=== PATIENT | female | born 1955 | race Caucasian/White ===

== ENCOUNTER 2021-04-30 20:26 | Inpatient (IN) | payer MEDICARE, OTHER ==
[~2021-04-30 20:26] MED LIST: HEPARIN SODIUM 1,000 UN/ML (10ML VL) IV ONE; IV FLUID CONTINUATION 1,000 ML IV ONE; LIDOCAINE 1% INJ 10MG/ML (20 ML MDV) SQ ONE; MIDAZOLAM 2 MG/2 ML VIAL IV ONE; TICAGRELOR 90 MG TAB PO ONE; VERAPAMIL SYRINGE (5 MG/10 ML) INTRAARTER ONE; fentaNYL (PF) 50 MCG/ML 2 ML AMP IV ONE
[2021-04-30] MEDS ORDERED: NITROGLYCERIN OINT 1 INCH/GM PACKET TOPICAL STA (20:36)
[2021-04-30] MEDS ORDERED: NITROGLYCERIN SL TABS 0.4 MG TAB SUBLINGUAL PRN ×2 (20:36→22:21)
[2021-04-30] MEDS ORDERED: HEPARIN SODIUM 1,000 UN/ML (10ML VL) IV ONE ×2 (20:36→21:26)
--- NOTE | 2021-04-30 20:38 | ED ---
General Adult HPI - General Chief complaint: Chest Pain Stated complaint: chest pain Time Seen by Provider: 04/30/21 20:27 Source: patient, EMS Mode of arrival: EMS Limitations: no limitations - History of Present Illness Initial comments: Dictation was produced using [employer] dictation software. please excuse any grammatical, word or spelling errors. Chief Complaint: 65-year-old female presents emergency part for chest pain History of Present Illness: 65-year-old female she has past medical history of schizoaffective disorder. Patient is being admitted for psychiatric issues in the past. Patient states for the last 4 days she's been having on and off chest pain. She states it's left anterior chest. Radiates to her jaw associated diaphoresis and nausea. Patient states that it's a pressure. Non-sharp. No numbness and paresthesias to the extremities. The ROS documented in this emergency department record has been reviewed and confirmed by me. Those systems with pertinent positive or negative responses have been documented in the HPI. All other systems are other negative and/or noncontributory. PHYSICAL EXAM: General Impression: Alert and oriented x3, acute distress secondary to pain HEENT: Normocephalic atraumatic, extra-ocular movements intact, pupils equal and reactive to light bilaterally, mucous membranes moist. Cardiovascular: Heart regular rate and rhythm Chest: Able to complete full sentences, no retractions, no tachypnea Abdomen: abdomen soft, non-tender, non-distended, no organomegaly Musculoskeletal: Pulses present and equal in all extremities, no peripheral edema Motor: no focal deficits noted Neurological: CN II-XII grossly intact, no focal motor or sensory deficits noted Skin: Intact with no visualized rashes Psych: Normal affect and mood ED course: 65-year-old feel presents emergency department for chest pain concerning for acute coronary syndrome. vital signs upon arrival are within acceptable limits. EKG shows ST segment elevation MD in the 1 through the 5. There are reciprocal changes in the inferior leads. Code STEMI was paged. Spoke with Dr. Mascorro who is willing to accept patient and take emergently to the cath lab nurse. Patient given heparin per she received prehospital aspirin. EKG interpretation: Ventricular rate 75, sinus rhythm, AK interval 170, QS 80, QTC 4:15. No AK prolongation, no QTC prolongation. ST elevation in V1 through V5 with reversible changes in inferior leads. STEMI - Related Data Home Medications Medication Instructions Recorded Confirmed Acetaminophen/Caffeine [Excedrin 1 tab PO PC-SUPPER 04/30/21 04/30/21 Tension Headache] Cholecalciferol [Vitamin D3 (25 50 mcg PO PC-SUPPER 04/30/21 04/30/21 Mcg = 1000 Iu)] [place] Carbonate 300 mg PO PC-SUPPER 04/30/21 04/30/21 Lurasidone [Latuda] 40 mg PO PC-SUPPER 04/30/21 04/30/21 Meloxicam 15 mg PO PC-SUPPER PRN 04/30/21 04/30/21 Allergies Allergy/AdvReac Type Severity Reaction Status Date / Time citalopram hydrobromide Allergy Unknown Verified 04/30/21 20:55 [From Celexa] olanzapine [From Zyprexa] Allergy rash & Verified 04/30/21 20:55 itching Review of Systems ROS Statement: Those systems with pertinent positive or pertinent negative responses have been documented in the HPI. ROS Other: All systems not noted in ROS Statement are negative. Past Medical History Past Medical History: Hyperlipidemia, Osteoarthritis (OA) Additional Past Medical History / Comment(s): hips -degeneratve joint disease History of Any Multi-Drug Resistant Organisms: None Reported Past Surgical History: No Surgical Hx Reported Additional Past Surgical History / Comment(s): Cosmetic surgery on her nose 1978. Past Anesthesia/Blood Transfusion Reactions: No Reported Reaction Additional Past Anesthesia/Blood Transfusion Reaction / Comment(s): pt very sensitive to medications Past Psychological History: Anxiety, Bipolar Smoking Status: Current every day smoker Past Alcohol Use History: Occasional Past Drug Use History: None Reported - Past Family History Father Family Medical History: Myocardial Infarction ([place]) Additional Family Medical History / Comment(s): [place] x 2- Mother Family Medical History: Diabetes Mellitus Additional Family Medical History / Comment(s): Mother is alive at age 79 with history of Diabetes., polio,depression General Exam Limitations: no limitations Course Vital Signs 04/30/21 04/30/21 04/30/21 20:27 20:50 20:58 Temperature 98.8 F Pulse Rate 84 63 Respiratory 20 18 Rate Blood Pressure 171/92 148/97 119/78 O2 Sat by Pulse 99 96 93 L Oximetry Medical Decision Making - Lab Data Result diagrams: 04/30/21 20:41 04/30/21 20:41 Lab Results 04/30/21 04/30/21 Range/Units 20:41 20:41 WBC 13.1 H (3.8-10.6) k/uL RBC 5.11 (3.80-5.40) m/uL Hgb 16.2 H (11.4-16.0) gm/dL Hct 46.6 H (34.0-46.0) % MCV 91.2 (80.0-100.0) fL MCH 31.8 (25.0-35.0) pg MCHC 34.8 (31.0-37.0) g/dL RDW 12.8 (11.5-15.5) % Plt Count 219 (150-450) k/uL MPV 8.5 Neutrophils % 66 % Lymphocytes % 24 % Monocytes % 5 % Eosinophils % 2 % Basophils % 1 % Neutrophils # 8.7 H (1.3-7.7) k/uL Lymphocytes # 3.1 (1.0-4.8) k/uL Monocytes # 0.7 (0-1.0) k/uL Eosinophils # 0.2 (0-0.7) k/uL Basophils # 0.1 (0-0.2) k/uL Sodium 140 (137-145) mmol/L Potassium 4.1 (3.5-5.1) mmol/L Chloride 103 (98-107) mmol/L Carbon Dioxide 25 (22-30) mmol/L Anion Gap 12 mmol/L BUN 15 (7-17) mg/dL Creatinine 0.81 (0.52-1.04) mg/dL Est GFR (CKD-EPI)AfAm >90 (>60 ml/min/1.73 sqM) Est GFR (CKD-EPI)NonAf 78 (>60 ml/min/1.73 sqM) Glucose 119 H (74-99) mg/dL Calcium 9.9 (8.4-10.2) mg/dL Total Bilirubin 0.7 (0.2-1.3) mg/dL AST 30 (14-36) U/L ALT 25 (4-34) U/L Alkaline Phosphatase 107 (38-126) U/L Total Protein 9.1 H (6.3-8.2) g/dL Albumin 5.4 H (3.5-5.0) g/dL Disposition Clinical Impression: STEMI (ST elevation myocardial infarction) Disposition: ADMITTED IP TO THIS HOSP Condition: Critical Referrals: Oziel Jacobsen DO [Primary Care Provider] - 1-2 days
[2021-04-30] MEDS ORDERED: HEPARIN SOD,PORK IN 0.45% NACL 25,000 UNIT in 0.45% NACL 1 250ML.BAG IV SCH (20:45)
[2021-04-30 20:50] LABS: Basophils # (A) 0.1 k/uL (0-0.2); Basophils % (A) 1 %; Eosinophils # (A) 0.2 k/uL (0-0.7); Eosinophils % (A) 2 %; HCT 46.6 % (34.0-46.0); HGB 16.2 gm/dL (11.4-16.0); Lymphocytes # (A) 3.1 k/uL (1.0-4.8); Lymphocytes % (A) 24 %; MCH 31.8 pg (25.0-35.0); MCHC 34.8 g/dL (31.0-37.0); MCV 91.2 fL (80.0-100.0); Mean Platelet Volume 8.5; Monocytes # (A) 0.7 k/uL (0-1.0); Monocytes % (A) 5 %; Neutrophils # (A) 8.7 k/uL (1.3-7.7); Neutrophils % (A) 66 %; Platelet Count 219 k/uL (150-450); RBC 5.11 m/uL (3.80-5.40); RDW 12.8 % (11.5-15.5); WBC 13.1 k/uL (3.8-10.6)
[2021-04-30 20:59] LABS: ALT 25 U/L (4-34); AST 30 U/L (14-36); African American GFR (CKD) >90 (>60 ml/min/1.73 sqM); Albumin 5.4 g/dL (3.5-5.0); Alkaline Phosphatase 107 U/L (38-126); Anion Gap 12 mmol/L; Blood Urea Nitrogen 15 mg/dL (7-17); Calcium 9.9 mg/dL (8.4-10.2); Carbon Dioxide 25 mmol/L (22-30); Chloride 103 mmol/L (98-107); Glucose 119 mg/dL (74-99); Non-African American GFR(CKD) 78 (>60 ml/min/1.73 sqM); Potassium 4.1 mmol/L (3.5-5.1); Sodium 140 mmol/L (137-145); Total Bilirubin 0.7 mg/dL (0.2-1.3); Total Protein 9.1 g/dL (6.3-8.2)
[2021-04-30] MEDS ORDERED: NALOXONE 0.4 MG/ML 1 ML VIAL IV PRN (21:06)
--- NOTE | 2021-04-30 21:08 | XR ---
EXAMINATION TYPE: XR chest 1V portable DATE OF EXAM: 04/30/2021 COMPARISON: NONE HISTORY: Chest pain TECHNIQUE: Single view FINDINGS: Heart and mediastinum are normal. Lungs are clear. Diaphragm is normal. Bony thorax appears normal. IMPRESSION: Normal chest.
[2021-04-30 21:10] LABS: INR 0.9 (<1.2); Prothrombin Time 9.9 sec (9.0-12.0)
[2021-04-30] MEDS ORDERED: fentaNYL (PF) 50 MCG/ML 2 ML AMP ONE (21:11)
[2021-04-30] MEDS ORDERED: LIDOCAINE 1% INJ 10MG/ML (20 ML MDV) ONE (21:15)
[2021-04-30] MEDS ORDERED: MIDAZOLAM 2 MG/2 ML VIAL IV ONE (21:15)
[2021-04-30] MEDS ORDERED: fentaNYL (PF) 50 MCG/ML 2 ML AMP IV ONE (21:15)
[2021-04-30] MEDS ORDERED: VERAPAMIL 2.5 MG/ML 2 ML AMP ONE (21:15)
[2021-04-30] MEDS ORDERED: LIDOCAINE 1% INJ 10MG/ML (20 ML MDV) SQ ONE (21:16)
[2021-04-30] MEDS ORDERED: VERAPAMIL SYRINGE (5 MG/10 ML) INTRAARTER ONE (21:18)
[2021-04-30] MEDS ORDERED: HEPARIN SODIUM 1,000 UN/ML (10ML VL) ONE (21:24)
[2021-04-30] MEDS ORDERED: TICAGRELOR 90 MG TAB ONE (21:28)
[2021-04-30] MEDS ORDERED: NITROGLYCERIN 1000MCG/10ML SYRINGE INTRACORON ONE (21:28)
[2021-04-30] MEDS ORDERED: TICAGRELOR 90 MG TAB PO ONE (21:30)
[2021-04-30] MEDS ORDERED: IOPAMIDOL-370 125ML BTL INJ ONE (21:41)
[2021-04-30] MEDS ORDERED: IOPAMIDOL-370 100ML BTL INJ ONE ×2 (21:42)
[2021-04-30 22:13] LABS: Glucose,Whole Blood 138 mg/dL (75-99)
--- NOTE | 2021-04-30 22:15 | P.CRDCN ---
History of Present Illness History of present illness: HISTORY OF PRESENTING ILLNESS Patient is pleasant 65-year-old female with history of schizoaffective disorder, previous hyperlipidemia however has stopped taking medications, tobacco abuse, a rthritis who presents secondary to 4 days of off-and-on chest pain. She states that the chest pain came and went however was not that persistent and therefore did not seek medical care. She states that 2 days ago she felt like she was given dye however pressure usually stop and therefore did not come until tonight when the chest pain would not let up. She denies any similar symptoms. She does smoke. She does have a family history of father with an [place]. EKG shows sinus rhythm with ST elevation V2 through V6 with reciprocal changes. REVIEW OF SYSTEMS At the time of my exam: CONSTITUTIONAL: Denies fever or chills. CARDIOVASCULAR: +chest pain, + mild shortness of breath, no orthopnea, PND or palpitations. RESPIRATORY: Denies cough. GASTROINTESTINAL: Denies abdominal pain, diarrhea, constipation, +nausea, no vomiting. MUSCULOSKELETAL: Denies myalgias. NEUROLOGIC: Denies numbness, tingling or weakness. ENDOCRINE: Denies fatigue, weight change, polydipsia or polyurina. GENITOURINARY: Denies burning, hematuria or urgency with micturation. HEMATOLOGIC: Denies history of anemia or bleeding. PHYSICAL EXAMINATION Vital signs reviewed. CONSTITUTIONAL: Mild distress, tangential speech HEENT: Head is normocephalic. Pupils are equal, round. Sclerae anicteric. Mucous membranes of the mouth are moist. No JVD. No carotid bruit. CHEST EXAMINATION: Lungs are clear to auscultation. No chest wall tenderness is noted on palpation or with deep breathing. HEART EXAMINATION: Regular rate and rhythm. S1, S2 heard. No murmurs, gallops or rub. ABDOMEN: Soft, nontender. Positive bowel sounds. EXTREMITIES: 2+ peripheral pulses, no lower extremity edema and no calf tenderness. NEUROLOGIC EXAMINATION: Patient is awake, alert and oriented x3. ASSESSMENT 1. Anterolateral STEMI 2. Previous history of hyperlipidemia 3. Tobacco abuse 4. Bipolar disorder/schizoaffective disorder 5. Hypertension PLAN Discussed with patient recommendations for emergency heart catheterization and she is agreeable. Aspirin, heparin and heart catheterization. Check 2-D echo. Smoking cessation. Further recommendations to follow. Past Medical History Past Medical History: Hyperlipidemia, Osteoarthritis (OA) Additional Past Medical History / Comment(s): hips -degeneratve joint disease History of Any Multi-Drug Resistant Organisms: None Reported Past Surgical History: No Surgical Hx Reported Additional Past Surgical History / Comment(s): Cosmetic surgery on her nose 1978. Past Anesthesia/Blood Transfusion Reactions: No Reported Reaction Additional Past Anesthesia/Blood Transfusion Reaction / Comment(s): pt very sensitive to medications Past Psychological History: Anxiety, Bipolar Smoking Status: Current every day smoker Past Alcohol Use History: Occasional Past Drug Use History: None Reported - Past Family History Father Family Medical History: Myocardial Infarction ([place]) Additional Family Medical History / Comment(s): [place] x 2- Mother Family Medical History: Diabetes Mellitus Additional Family Medical History / Comment(s): Mother is alive at age 79 with history of Diabetes., polio,depression Medications and Allergies Home Medications Medication Instructions Recorded Confirmed Type Acetaminophen/Caffeine [Excedrin 1 tab PO PC-SUPPER 04/30/21 04/30/21 History Tension Headache] Cholecalciferol [Vitamin D3 (25 50 mcg PO PC-SUPPER 04/30/21 04/30/21 History Mcg = 1000 Iu)] [place] Carbonate 300 mg PO PC-SUPPER 04/30/21 04/30/21 History Lurasidone [Latuda] 40 mg PO PC-SUPPER 04/30/21 04/30/21 History Meloxicam 15 mg PO PC-SUPPER PRN 04/30/21 04/30/21 History Allergies Allergy/AdvReac Type Severity Reaction Status Date / Time citalopram hydrobromide Allergy Unknown Verified 04/30/21 20:55 [From Celexa] olanzapine [From Zyprexa] Allergy rash & Verified 04/30/21 20:55 itching Physical Exam Vitals: Vital Signs Temp Pulse Resp BP Pulse Ox 04/30/21 20:58 63 119/78 93 L 04/30/21 20:50 18 148/97 96 04/30/21 20:27 98.8 F 84 20 171/92 99 Intake and Output 04/30/21 04/30/21 04/30/21 06:59 14:59 22:59 Intake Total 400 Balance 400 Intake: IV 400 Other: Weight 83.461 kg Results 04/30/21 20:41 04/30/21 20:41 Cardiac Enzymes 04/30/21 04/30/21 Range/Units 20:41 20:41 AST 30 (14-36) U/L Troponin I 0.046 H* (0.000-0.034) ng/mL Coagulation 04/30/21 Range/Units 20:41 PT 9.9 (9.0-12.0) sec APTT 22.0 (22.0-30.0) sec CBC 04/30/21 Range/Units 20:41 WBC 13.1 H (3.8-10.6) k/uL RBC 5.11 (3.80-5.40) m/uL Hgb 16.2 H (11.4-16.0) gm/dL Hct 46.6 H (34.0-46.0) % Plt Count 219 (150-450) k/uL Comprehensive Metabolic Panel 04/30/21 Range/Units 20:41 Sodium 140 (137-145) mmol/L Potassium 4.1 (3.5-5.1) mmol/L Chloride 103 (98-107) mmol/L Carbon Dioxide 25 (22-30) mmol/L BUN 15 (7-17) mg/dL Creatinine 0.81 (0.52-1.04) mg/dL Glucose 119 H (74-99) mg/dL Calcium 9.9 (8.4-10.2) mg/dL AST 30 (14-36) U/L ALT 25 (4-34) U/L Alkaline Phosphatase 107 (38-126) U/L Total Protein 9.1 H (6.3-8.2) g/dL Albumin 5.4 H (3.5-5.0) g/dL Current Medications Generic Name Dose Route Start Last Admin Trade Name Freq PRN Reason Stop Dose Admin Heparin Sodium/Sodium Chloride 250 mls @ 10 mls/hr 04/30/21 20:45 04/30/21 20:47 25,000 unit/ Sodium Chloride IV 11.982 units/kg/hr .Q24H PHANI 10 mls/hr Administration Protocol 11.982 UNITS/KG/HR Naloxone HCl 0.2 mg 04/30/21 21:06 Naloxone 0.4 Mg/Ml 1 Ml Vial IV Q2M PRN Opioid Reversal Nitroglycerin 0.4 mg 04/30/21 20:36 04/30/21 20:48 Nitroglycerin Sl Tabs 0.4 Mg Tab SUBLINGUAL 0.4 mg Q5M PRN Administration Chest Pain Intake and Output 04/30/21 04/30/21 04/30/21 06:59 14:59 22:59 Intake Total 400 Balance 400 Intake: IV 400 Other: Weight 83.461 kg Patient Weight 05/01/21 06:59 Weight 83.461 kg 04/30/21 20:41 04/30/21 20:41
[2021-04-30] MEDS ORDERED: RX INFO: IV CONTRAST WAS GIVEN 1 EACH MISC MISCELLANE PRN (22:21)
--- NOTE | 2021-04-30 22:21 | P.PRCINT ---
Percutaneous Coronary Int. - Percutaneous Coronary Intervention Percutaneous Coronary Intervention: PROCEDURES PERFORMED: Left heart catheterization, bilateral coronary angiography, PCI proximal LAD with 3.5 x 18 mm Xience JASIEL INDICATION: Anterolateral STEMI HISTORY: Patient is a pleasant 65-year-old female with a history of bipolar disorder, hypertension, hyperlipidemia, tobacco abuse who presented with 4 days of off-and-on chest pain with more persistent chest pain today and was found to have anterolateral STEMI. CONSENT:I have discussed the risks, benefits and alternative therapies for the above-mentioned procedure and for both sedation/analgesia as well as necessary blood product administration, if indicated, as they pertain to this patient. The patient has indicated understanding and acceptance of the risks and procedures discussed. PROCEDURE: After the risks, benefits and alternatives of the above mentioned procedure explained in detail with the patient, informed consent was obtained. Patient was taken to the catheterization lab and prepped and draped in usual fashion. 1% lidocaine was used to anesthetize the right radial artery. A 6- [place] sheath was placed in the right radial artery using modified Seldinger technique. Left coronary angiography was performed with a 6-[place] CLS 3.5 catheter in various views. Heparin was given for ACT greater than 250. A 0.014 BMW wire was advanced into the distal LAD. Predilation was performed with a 2.5 x 12 mm balloon. Next a 3.5 x 18 mm Xience JASIEL was deployed in the ostial LAD. The wire was pulled and final angiograms were performed.. Intervention there was 95% stenosis and MAYA 2 flow and post intervention there was 0% stenosis and MAYA 3 flow with mild plaque shift and 40% ostial circumflex stenosis. Right coronary angiography was performed with a 5-[place] JR5 catheter in various views. A 5-[place] FR5 catheter was inserted into the left ventricle and pressure measurements were obtained. The right radial sheath was removed and a TR band was placed with hemostasis achieved. The patient tolerated the procedure well. Patient was transported back to the post catheterization holding area in stable condition. Conscious Sedation: Patient was monitored under the direct supervision of vision of myself for conscious sedation using Versed and fentanyl for a total duration of 30 minutes HEMODYNAMICS: Aorta: 162/88 LV: 157/5, LVEDP 16 SELECTIVE CORONARY ARTERIOGRAPHY: LEFT MAIN: The left main is a large caliber vessel which bifurcates into the LAD and circumflex. There is no significant stenosis. LEFT ANTERIOR DESCENDING CORONARY ARTERY: LAD is a large caliber vessel which wraps around to the apex. There is an ostial/proximal 95% LAD stenosis followed by a somewhat aneurysmal mid LAD and then further followed by a 30-40% mid LAD stenosis. Otherwise the LAD appears normal. LEFT CIRCUMFLEX CORONARY ARTERY: Left circumflex is a moderate caliber vessel without significant stenosis. RIGHT CORONARY ARTERY: The right coronary artery is a large caliber vessel which gives off a PDA and PLV branch and is the dominant vessel. There is a proximal RCA 30-40% stenosis and otherwise appears normal. FINAL IMPRESSION: 1. CAD as described above including 95% proximal LAD stenosis, 30-40% mid LAD stenosis and proximal RCA 30-40% stenosis. 2. S/p successful PCI proximal LAD with 3.5 x 18 mm Xience JASIEL 3. Borderline elevated left sided filling pressures PLAN: 1. Aggressive risk factor modification per most recent ACC/AHA guidelines. 2. Continue dual antiplatelets for 12 months.
[2021-04-30] MEDS ORDERED: ZOLPIDEM 5 MG TAB PO PRN (22:30)
[2021-04-30] MEDS ORDERED: ATROPINE SULFATE 0.1 MG/ML 10ML SYRINGE IV PRN (23:00)
[2021-04-30] MEDS: METOPROLOL TARTRATE 25 MG TAB PO SCH (23:51)
[2021-04-30] MEDS: ATORVASTATIN 80 MG TAB PO SCH (23:52)
[2021-04-30] MEDS: SODIUM CHLORIDE 0.9% 1,000 ML in EMPTY BAG 1 BAG IV SCH (23:55)
[2021-05-01] MEDS ORDERED: MAG HYDROX/AL HYDROX/SIMETH 30 ML CUP PO PRN
[2021-05-01 06:07] LABS: African American GFR (CKD) >90 (>60 ml/min/1.73 sqM); Anion Gap 6 mmol/L; Blood Urea Nitrogen 13 mg/dL (7-17); Calcium 8.7 mg/dL (8.4-10.2); Carbon Dioxide 24 mmol/L (22-30); Chloride 109 mmol/L (98-107); Glucose 122 mg/dL (74-99); Non-African American GFR(CKD) >90 (>60 ml/min/1.73 sqM); Potassium 3.5 mmol/L (3.5-5.1); Sodium 139 mmol/L (137-145)
[2021-05-01] MEDS ORDERED: Potassium Replacement Protocol 1 EACH MISC MISCELLANE PRN (07:19)
[2021-05-01] MEDS: METOPROLOL TARTRATE 25 MG TAB PO SCH ×2 (08:39→20:14)
[2021-05-01] MEDS: TICAGRELOR 90 MG TAB PO SCH ×2 (08:40→20:14)
[2021-05-01] MEDS: POTASSIUM CHLORIDE ER 20 MEQ TAB.ER PO SCH ×2 (08:40→10:57)
[2021-05-01] MEDS: ASPIRIN 81 MG PO SCH (08:40)
--- NOTE | 2021-05-01 10:00 | ECHOF ---
Referral Reason:re: STEMI MEASUREMENTS -------- HEIGHT: 170.2 cm WEIGHT: 87.1 kg BP: IVSd: 1.0 cm (0.6 - 1.1) LVIDd: 5.1 cm (3.9 - 5.3) LVPWd: 1.3 cm (0.6 - 1.1) IVSs: 1.1 cm LVIDs: 3.1 cm LVPWs: 1.4 cm LAESV Index (A-L): 22.37 ml/m Ao Diam: 2.9 cm (2.0 - 3.7) AV Cusp: 1.6 cm (1.5 - 2.6) LA Diam: 3.9 cm (2.7 - 3.8) MV EXCURSION: 19.436 mm (> 18.000) MV EF SLOPE: 74 mm/s (70 - 150) EPSS: 0.7 cm MV E Reed: 0.56 m/s MV DecT: 261 ms MV A Reed: 0.94 m/s MV E/A Ratio: 0.60 RAP: 5.00 mmHg RVSP: 14.63 mmHg FINDINGS -------- Sinus rhythm. This was a technically adequate study. The left ventricular size is normal. There is borderline concentric left ventricular hypertrophy. Overall left ventricular systolic function is low-normal with, an EF between 50 - 55 %. Antersepta l Hypokinesis The right ventricle is normal in size. Normal LA size by volume 22+/-6 ml/m2. The right atrial size is normal. There is mild aortic valve sclerosis. There is no evidence of aortic regurgitation. Mild mitral regurgitation is present. Mild tricuspid regurgitation present. Right ventricular systolic pressure is normal at < 35 mmHg. There is no pulmonic regurgitation present. There is no pericardial effusion. CONCLUSIONS -------- 1. The left ventricular size is normal. 2. There is borderline concentric left ventricular hypertrophy. 3. Overall left ventricular systolic function is low-normal with, an EF between 50 - 55 %. 4. Anterseptal Hypokinesis 5. The right ventricle is normal in size. 6. Normal LA size by volume 22+/-6 ml/m2. 7. The right atrial size is normal. 8. There is mild aortic valve sclerosis. 9. Mild mitral regurgitation is present. 10. Mild tricuspid regurgitation present. 11. There is no pulmonic regurgitation present. 12. There is no pericardial effusion. RADAR TESTER: Marylin Gleason RDCS
[2021-05-01] MEDS ORDERED: NICOTINE 21MG/24HR PATCH TRANSDERM STA (10:52)
--- NOTE | 2021-05-01 11:48 | P.PN ---
Subjective Patient presented with acute myocardial infarction yesterday She underwent stenting to the LAD by Dr. Mascorro She is very stable today no chest discomfort dizziness or lightheadedness For the past 4 days prior to this event she was experiencing chest discomfort and heartburn-like symptoms Pulse rate in the 60s blood pressure 137/100 mmHg and 130 no 98 mmHg Breath sounds are clear no rhonchi no crackles Heart sounds S1 and S2 are normal no murmurs or gallops or rub Extremities warm no edema Impression Acute myocardial infarction, anterior Normal LV function Normal electrolytes and renal function Patient takes lithium at home Suggest Smoking cessation Atorvastatin, dual antiplatelet therapy and beta blockers Watch blood pressure and maximize antihypertensive therapy Objective - Vital Signs Vital signs: Vital Signs Temp 97.6 F 05/01/21 08:00 Pulse 68 05/01/21 11:00 Resp 20 05/01/21 06:30 BP 137/100 05/01/21 11:00 Pulse Ox 95 05/01/21 11:00 Intake & Output 04/30/21 05/01/21 05/01/21 18:59 06:59 18:59 Intake Total 1475 300 Balance 1475 300 Weight 87.1 kg 87.1 kg Intake: IV 1075 300 Sodium Chloride 0.9% 1, 675 300 000 ml In Empty Bag 1 bag @ 1 ML/KG/HR 83.461 mls/ hr IV .[id number] [facility] Rx#: [id number] Oral 400 Other: # Voids 1 1 - Labs CBC & Chem 7: 04/30/21 20:41 05/01/21 05:22 Labs: Abnormal Lab Results - Last 24 Hours (Table) 04/30/21 04/30/21 04/30/21 Range/Units 20:41 20:41 20:41 WBC 13.1 H (3.8-10.6) k/uL Hgb 16.2 H (11.4-16.0) gm/dL Hct 46.6 H (34.0-46.0) % Neutrophils # 8.7 H (1.3-7.7) k/uL Chloride (98-107) mmol/L Glucose 119 H (74-99) mg/dL POC Glucose (mg/dL) (75-99) mg/dL Troponin I 0.046 H* (0.000-0.034) ng/mL Total Protein 9.1 H (6.3-8.2) g/dL Albumin 5.4 H (3.5-5.0) g/dL 04/30/21 05/01/21 Range/Units 22:11 05:22 WBC (3.8-10.6) k/uL Hgb (11.4-16.0) gm/dL Hct (34.0-46.0) % Neutrophils # (1.3-7.7) k/uL Chloride 109 H (98-107) mmol/L Glucose 122 H (74-99) mg/dL POC Glucose (mg/dL) 138 H (75-99) mg/dL Troponin I (0.000-0.034) ng/mL Total Protein (6.3-8.2) g/dL Albumin (3.5-5.0) g/dL
--- NOTE | 2021-05-01 13:38 | P.CN ---
Psychiatric Consult - . Consult date: 05/01/21 Consult:: 05/01/21 13:00 IDENTIFYING DATA: This patient is a 65-year-old female, with a history of bipolar disorder who currently lives in apartment has 1-1 grandchild. She collects SSD. REASON FOR REFERRAL: Psychiatry was consulted for patient concerns about lithium. HISTORY OF PRESENT ILLNESS: The patient presented to the hospital on 04/30 for concerns about chest pain which has been on and off. Apparently patient has been having left-sided chest pain for the past few days. Patient was found to have a STEMI on EKG and was taken directly to the Addiction Specialist. Dr. Mascorro performed stenting on the LAD. Patient's kidney and liver function tests appear to be within normal limits. Patient was seen sitting beside her bed in the chair and was agreeable insurance underwriter sales. She appeared to have a bright affect and was rambling at times and however was appropriate and directable during conversation. She spoke about her mental health condition bipolar disorder and that she follows up with Dr. Bowman at [facility]. She states that she has an appointment with him tomorrow. She claims that she has been taking the lithium however he feels that "it slows me down sometimes" and was asking questions about whether she needs to be on it or not. She is also on latuda which she believes has been more helpful for her. She spoke about several other medications that she's been on in the past which have not been helpful for her. She claims that her mood is "okay" and is denying any depression or any other manic symptoms at this time. She is denying any racing thoughts. She states that her sleep is "on and off". She states that she is doing better in terms of her chest pain. She states her appetite is fair.. At this time patient denies any suicidal or homical ideations, intent or plan. Patient denies any auditory, visual hallucinations and denies any paranoia or delusions. Patients admits to using cigarettes daily and occasional alcohol. Denies any other recreational drug use. PAST PSYCHIATRIC HISTORY: Patient has a a history of bipolar disorder. She claims that she is currently on lithium and latuda at dinnertime. She was last psychiatrically hospitalized in October 2014 on the mental health unit. She currently follows up with [facility] and sees Dr. Bowman. Her appointment with Dr. Bowman tomorrow over the phone. Patient denies any history of suicide attempts in the past. Past Medical History: Hyperlipidemia, Osteoarthritis (OA) Additional Past Medical History / Comment(s): hips -degeneratve joint disease ALLERGIES: as per EMR. CHEMICAL DEPENDENCY HISTORY: as per HPI. FAMILY PSYCHIATRIC/SUBSTANCE USE HISTORY: States that her uncle has bipolar disorder SOCIAL HISTORY: Patient was born and raised in [place] and also in [place]. She claims that she completed high school and did some college. She states that she works several jobs in the past however is now on SSD. She has 1 child and also has 1 grandchild. She currently lives in an apartment. MENTAL STATUS EXAM: General Appearance: Patient appears to be stated age is alert, pleasant, and tends to be cooperative. Bright affect. Patient appears to have fair hygiene and grooming wearing hospital gown with fair eye contact. Behavior: Patient is calmly lying in bed without any agitated behavior. Appropriate. Speech: Patient's speech is fluent and nonpressured. Rambles however is directable. Mood/Affect: Patient reports their mood is "ok", affect is congruent Suicidality/Homicidality: Patient denies having any suicidal or homicidal ideation intent or plan. Perceptions: Patient denies any visual hallucinations and denies any auditory hallucinations Though content/process: There is no evidence of any delusional thought content. Tangential at times. Rambles at times. Not endorsing any delusions or paranoia. Memory and concentration: AOX3, grossly intact for the purposes of this session. Can spell "WORLD" backwards Judgment and insight: fair IMPRESSIONS: Bipolar disorder Nicotine dependence PLAN: -At this time patient DOES NOT meet criteria for inpatient psychiatric admission. -Would recommend the following medication changes/additions: Continue with latuda and lithium as percribed. Her lithium is at a low dose at this time and could be increased but would defer this decision to her outpt psychiatrist at [facility]. Will check a lithium level tomorrow morning. Added melatonin 6 mg qhs for sleep. -Patient has a appointment with Dr. Bowman tomorrow over the phone who is her outpatient psychiatrist. -Communicated plan to patient's nurse -Psychiatry will sign off at this time -Please contact with any questions.
--- NOTE | 2021-05-01 13:58 | P.HPIM ---
History of Present Illness H&P Date: 05/01/21 Chief Complaint: Chest pain This is a pleasant 65-year-old patient who follows with Dr. Jacobsen. Chronic stable medical conditions include hyperlipidemia, osteoarthritis especially the hips, bipolar disorder, a smoke about 8 cigarettes a day. She does follow with Dr. Hunter out of [facility] for her bipolar disorder. And she has concerns about her lithium. For 3-4 days patient been having pain across the chest. More so with activity and better with rest. Also shortness of breath. Tired. No fever no chills. Some perspiration. Patient is found to have ST elevation acute [place] in the ER with positive troponin and taken to the cardiac director of cath lab. Successful stenting of the proximal LAD was done. Patient admitted to the ICU. This morning sitting up in a chair. No chest pain. Breathing is stable. Did eat her breakfast. Review of systems: GEN.: Tired EYES: None HEENT: None NECK: None RESPIRATORY: Does get short of breath and wheezing CARDIOVASCULAR: As above GASTROINTESTINAL: None GENITOURINARY: None MUSCULOSKELETAL: Joint pains LYMPHATICS: None HEMATOLOGICAL: None PSYCHIATRY: Anxious NEUROLOGICAL: None Past medical history to include: Hyperlipidemia, osteoarthritis, bipolar disorder, nicotine dependence Social history: Long-standing smoker currently being over 8 cigarettes a day. Social drinker Family history: CAD Physical examination: VITAL SIGNS: 97.6, 73, 136/62, 95% room air GENERAL: BMI 30.1, sitting up in a chair awake, comfortable. EYES: Pupils equal. Conjunctiva normal. HEENT: External appearance of nose and ears normal, oral cavity grossly normal. NECK: JVD not raised; masses not palpable. HEART: First and second heart sounds are normal; no edema. LUNGS: Respiratory rate normal; diminished breath sounds. ABDOMEN: Soft, nontender, liver spleen not palpable, no masses palpable. PSYCH: Alert and oriented x3; mood and affect anxiousl. MUSCULOSKELETAL:No Clubbing/cyanosis;muscles-grossly intact NEUROLOGICAL: Cranial nerves grossly intact; no facial asymmetry, power and sensation grossly intact. LYMPHATICS: No lymph nodes palpable in the axilla and neck INVESTIGATIONS, reviewed in the clinical context: 2-D echocardiogram: EF 50-55%, anteroseptal hypokinesis mild regurg. May 01: Potassium 3.5 crit 0.68 Admission labs: White count 13.1 hemoglobin 16.2 potassium 4.1 Troponin I 0.046 EKG tracing personally reviewed by me-ST elevation in anterior leads and depression in inferior leads Chest x-ray film personally reviewed by me-some hyperinflation Assessment and plan: -Acute ST elevation myocardial infarction of the anterior wall Emergency stent to LAD, by Dr. Mascorro -COPD in a current smoker Albuterol when necessary -Chronic nicotine dependence, cigarette smoker Nicotine patch -Obesity BMI 30.1 C dietitian -Bipolar disorder somewhat anxious concerned about her lithium. Does follow with Dr. Hunter from [facility]. Consult psychiatry Aspirin, Lipitor, IV heparin, Lopressor, Brilinta. Home medications resumed. Follow with cardiology. Telemetry. Consult psychiatry. Care was discussed with the patient. Questions answered. Given the complexity and severity of patient's condition expect the patient to be in the hospital at least for 2 overnights Past Medical History Past Medical History: Hyperlipidemia, Osteoarthritis (OA) Additional Past Medical History / Comment(s): hips -degeneratve joint disease Last Myocardial Infarction Date:: 04/30/21 History of Any Multi-Drug Resistant Organisms: None Reported Past Surgical History: No Surgical Hx Reported Additional Past Surgical History / Comment(s): Cosmetic surgery on her nose 1978 . Past Anesthesia/Blood Transfusion Reactions: No Reported Reaction Additional Past Anesthesia/Blood Transfusion Reaction / Comment(s): pt very sensitive to medications Date of Last Stent Placement:: 04/30/21 Past Psychological History: Anxiety, Bipolar Smoking Status: Current every day smoker Past Alcohol Use History: Occasional Past Drug Use History: None Reported - Past Family History Father Family Medical History: Myocardial Infarction ([place]) Additional Family Medical History / Comment(s): [place] x 2- Mother Family Medical History: Diabetes Mellitus Additional Family Medical History / Comment(s): Mother is alive at age 79 with history of Diabetes., polio,depression Medications and Allergies Home Medications Medication Instructions Recorded Confirmed Type Acetaminophen/Caffeine [Excedrin 1 tab PO PC-SUPPER 04/30/21 04/30/21 History Tension Headache] Cholecalciferol [Vitamin D3 (25 50 mcg PO PC-SUPPER 04/30/21 04/30/21 History Mcg = 1000 [address])] [place] Carbonate 300 mg PO PC-SUPPER 04/30/21 04/30/21 History Lurasidone [Latuda] 40 mg PO PC-SUPPER 04/30/21 04/30/21 History Meloxicam 15 mg PO PC-SUPPER PRN 04/30/21 04/30/21 History Allergies Allergy/AdvReac Type Severity Reaction Status Date / Time citalopram hydrobromide Allergy Unknown Verified 04/30/21 20:55 [From Celexa] olanzapine [From Zyprexa] Allergy rash & Verified 04/30/21 20:55 itching Physical Exam Vitals: Vital Signs Temp Pulse Resp BP Pulse Ox 05/01/21 10:00 74 158/88 95 05/01/21 09:30 75 95 05/01/21 09:00 63 113/98 94 L 05/01/21 08:30 68 94 L 05/01/21 08:06 95 05/01/21 08:00 97.6 F 73 136/62 95 05/01/21 07:30 75 96 05/01/21 07:00 72 125/67 95 05/01/21 06:30 74 20 125/67 95 05/01/21 06:00 67 20 120/62 94 L 05/01/21 05:30 73 20 120/62 94 L 05/01/21 05:00 71 12 135/82 94 L 05/01/21 04:30 70 20 135/82 94 L 05/01/21 04:00 98 F 70 15 139/81 93 L 05/01/21 03:30 75 20 139/81 94 L 05/01/21 03:00 70 19 131/70 96 05/01/21 02:30 65 20 131/70 95 05/01/21 02:00 65 19 119/59 94 L 05/01/21 01:30 67 22 119/59 94 L 05/01/21 01:00 73 21 140/87 94 L 05/01/21 00:30 78 16 140/87 97 05/01/21 00:14 74 30 H 140/87 96 05/01/21 00:00 98.2 F 85 66 H 139/88 97 04/30/21 23:30 78 29 H 139/88 97 04/30/21 23:00 85 35 H 132/87 94 L 04/30/21 22:30 98.3 F 81 21 147/80 97 04/30/21 21:12 98 F 03/01/22 20:58 63 119/78 93 L 04/30/21 20:50 18 148/97 96 04/30/21 20:27 98.8 F 84 20 171/92 99 Intake and Output 04/30/21 05/01/21 05/01/21 22:59 06:59 14:59 Intake Total 475 1000 150 Balance 475 1000 150 Intake: IV 475 600 150 Sodium Chloride 0.9% 1, 75 600 150 000 ml In Empty Bag 1 bag @ 1 ML/KG/HR 83.461 mls/ hr IV .[id number] [facility] Rx#: [id number] Oral 400 Other: # Voids 1 1 1 Weight 87.4 kg 87.1 kg 87.1 kg Results CBC & Chem 7: 04/30/21 20:41 05/01/21 05:22 Labs: Abnormal Lab Results - Last 24 Hours (Table) 04/30/21 04/30/21 04/30/21 Range/Units 20:41 20:41 20:41 WBC 13.1 H (3.8-10.6) k/uL Hgb 16.2 H (11.4-16.0) gm/dL Hct 46.6 H (34.0-46.0) % Neutrophils # 8.7 H (1.3-7.7) k/uL Chloride (98-107) mmol/L Glucose 119 H (74-99) mg/dL POC Glucose (mg/dL) (75-99) mg/dL Troponin I 0.046 H* (0.000-0.034) ng/mL Total Protein 9.1 H (6.3-8.2) g/dL Albumin 5.4 H (3.5-5.0) g/dL 04/30/21 05/01/21 Range/Units 22:11 05:22 WBC (3.8-10.6) k/uL Hgb (11.4-16.0) gm/dL Hct (34.0-46.0) % Neutrophils # (1.3-7.7) k/uL Chloride 109 H (98-107) mmol/L Glucose 122 H (74-99) mg/dL POC Glucose (mg/dL) 138 H (75-99) mg/dL Troponin I (0.000-0.034) ng/mL Total Protein (6.3-8.2) g/dL Albumin (3.5-5.0) g/dL
[2021-05-01] MEDS: SODIUM CHLORIDE 0.9% 1,000 ML in EMPTY BAG 1 BAG IV SCH (17:59)
[2021-05-01] MEDS ORDERED: LURASIDONE 40 MG TAB PO SCH (18:30)
[2021-05-01] MEDS ORDERED: LITHIUM CARBONATE 300 MG CAP PO SCH (18:30)
[2021-05-01] MEDS ORDERED: CHOLECALCIFEROL 25 MCG (1000 IU) TABLET PO SCH (18:30)
[2021-05-01] MEDS: ATORVASTATIN 80 MG TAB PO SCH (20:14)
[2021-05-01] MEDS ORDERED: MELATONIN 3 MG TABLET PO SCH (21:00)
[2021-05-01 22:18] VITALS: RESP 18
[2021-05-02] MEDS: ASPIRIN 81 MG PO SCH (05:36)
[2021-05-02 08:12] VITALS: TEMP 98.2
[2021-05-02] MEDS: METOPROLOL TARTRATE 25 MG TAB PO SCH (08:58)
[2021-05-02] MEDS: TICAGRELOR 90 MG TAB PO SCH (08:58)
[2021-05-02] MEDS ORDERED: NICOTINE 21MG/24HR PATCH TRANSDERM SCH (09:00)
[2021-05-02] MEDS ORDERED: METOPROLOL TARTRATE 25 MG TAB PO STA (09:43)
[2021-05-02 12:36] VITALS: BP 131/80; PULSE 67
--- NOTE | 2021-05-02 12:55 | P.PN ---
Subjective Progress Note Date: 05/02/21 HISTORY OF PRESENT ILLNESS: Patient is status post cardiac catheterization with stenting to the LAD. Patient examined this 40 the bedside. Patient denies any chest pain or pressure. She denies shortness of breath. Vital signs are stable. PHYSICAL EXAM: VITAL SIGNS: Reviewed. GENERAL: Well-developed in no acute distress. NECK: Supple. No JVD or thyromegaly LUNGS: Respirations even and unlabored. Lungs essentially clear to auscultation bilaterally. HEART: Regular rate and rhythm. S1 and S2 heard. EXTREMITIES: Normal range of motion. No clubbing or cyanosis. Peripheral pulses intact. No lower extremity edema ASSESSMENT: STEMI, s/p PCI to LAD Hypertension Hyperlipidemia Nicotine dependence Bipolar disorder PLAN: Continue current cardiac medications Patient may be discharged home today and follow up outpatient with Dr. Mascorro Nurse practitioner note has been reviewed by physician. Signing provider agrees with the documented findings, assessment, and plan of care. Objective - Vital Signs Vital signs: Vital Signs Temp 98.2 F 05/02/21 11:46 Pulse 67 05/02/21 11:46 Resp 18 05/02/21 11:46 BP 131/80 05/02/21 11:46 Pulse Ox 97 05/02/21 11:46 Intake & Output 05/01/21 05/02/21 05/02/21 18:59 06:59 18:59 Intake Total 900 10 660 Balance 900 10 660 Weight 87.1 kg Intake: IV 300 10 0.9 10 Sodium Chloride 0.9% 1, 300 000 ml In Empty Bag 1 bag @ 1 ML/KG/HR 83.461 mls/ hr IV .[id number] [facility] Rx#: [id number] Oral 600 660 Other: Voiding Method Toilet Toilet Toilet # Voids 1 1 2 - Labs CBC & Chem 7: 04/30/21 20:41 05/01/21 05:22
--- NOTE | 2021-05-02 16:43 | P.DS ---
Providers Date of admission: 04/30/21 21:06 Expected date of discharge: 05/02/21 Attending physician: Rachid Joseph Consults: 04/30/21 20:36 Consult Physician Stat Consulting Provider: Jeb Mascorro Consult Reason/Comments: STEMI ACTIVATION COMPLETE Do you want consulting provider notified?: Already Contacted 04/30/21 22:21 Consult Physician Routine Consulting Provider: [facility] Consult Reason/Comments: Post Interventional patient Do you want consulting provider notified?: Already Contacted 05/01/21 12:47 Consult Physician Routine Consulting Provider: Oziel Haynes Consult Reason/Comments: bipolar - Pt concerns about lithium Do you want consulting provider notified?: Yes Primary care physician: Oziel Beaumont Hospital Course: Chief Complaint: Chest pain This is a pleasant 65-year-old patient who follows with Dr. Jacobsen. Chronic stable medical conditions include hyperlipidemia, osteoarthritis especially the hips, bipolar disorder, a smoke about 8 cigarettes a day. She does follow with Dr. Hunter out of [facility] for her bipolar disorder. And she has concerns about her lithium. For 3-4 days patient been having pain across the chest. More so with activity and better with rest. Also shortness of breath. Tired. No fever no chills. Some perspiration. Patient is found to have ST elevation acute [place] in the ER w ith positive troponin and taken to the cardiac laborer yard. Successful stenting of the proximal LAD was done. Patient admitted to the ICU. This morning sitting up in a chair. No chest pain. Breathing is stable. Did eat her breakfast. May 02: Doing well. Did ambulate. No chest pain no shortness of breath. Cleared by currently for discharge. Also seen by psychiatry. No change in medication. Patient to follow-up with her own psychiatrist. Melatonin added. Patient yet again counseled about smoking. Meloxicam discontinued and discussed with patient. Discussion and discharge planning more than 35 minutes Past medical history to include: Hyperlipidemia, osteoarthritis, bipolar disorder, nicotine dependence Social history: Long-standing smoker currently being over 8 cigarettes a day. Social drinker Family history: CAD Physical examination: VITAL SIGNS: 98.2, 67, 18, 131/80, 97% room air GENERAL: Sitting of the patient's bed, comfortable. EYES: Pupils equal. Conjunctiva normal. HEENT: External appearance of nose and ears normal, oral cavity grossly normal. NECK: JVD not raised; masses not palpable. HEART: First and second heart sounds are normal; no edema. LUNGS: Respiratory rate normal; diminished breath sounds. ABDOMEN: Soft, nontender, liver spleen not palpable, no masses palpable. PSYCH: Alert and oriented x3; mood and affect anxiousl. MUSCULOSKELETAL:No Clubbing/cyanosis;muscles-grossly intact INVESTIGATIONS, reviewed in the clinical context: Leads him 0.2 2-D echocardiogram: EF 50-55%, anteroseptal hypokinesis mild regurg. May 01: Potassium 3.5 crit 0.68 Admission labs: White count 13.1 hemoglobin 16.2 potassium 4.1 Troponin I 0.046 EKG tracing personally reviewed by me-ST elevation in anterior leads and depression in inferior leads Chest x-ray film personally reviewed by me-some hyperinflation Assessment and plan: -Acute ST elevation myocardial infarction of the anterior wall Emergency stent to LAD, by Dr. Mascorro -CAD with stent to LAD -COPD in a current smoker Albuterol when necessary -Chronic nicotine dependence, cigarette smoker Nicotine patch -Obesity BMI 30.1 C dietitian -Bipolar disorder somewhat anxious concerned about her lithium. Does follow with Dr. Hunter from [facility]. Seen by Dr. Haynes from psychiatry. No change in medications. Disposition: Home Plan - Discharge Summary Discharge Rx Participant: No New Discharge Prescriptions: New Metoprolol Tartrate [Lopressor] 50 mg PO BID #180 tab Nitroglycerin Sl Tabs [Nitrostat] 0.4 mg SUBLINGUAL Q5M PRN #100 tab PRN Reason: Chest Pain Nicotine 21Mg/24Hr Patch [Habitrol] 1 patch TRANSDERM DAILY #14 patch Aspirin 81 mg PO DAILY #90 tab Ticagrelor [Brilinta] 90 mg PO BID #180 tab Atorvastatin [Lipitor] 80 mg PO HS #90 tab Melatonin 5 mg PO HS #1 tablet Continue Cholecalciferol [Vitamin D3 (25 Mcg = 1000 Iu)] 50 mcg PO PC-SUPPER Acetaminophen/Caffeine [Excedrin Tension Headache] 1 tab PO PC-SUPPER Lurasidone [Latuda] 40 mg PO PC-SUPPER [place] Carbonate 300 mg PO PC-SUPPER Discontinued Meloxicam 15 mg PO PC-SUPPER PRN PRN Reason: Pain Discharge Medication List Acetaminophen/Caffeine [Excedrin Tension Headache] 1 tab PO PC-SUPPER 04/30/21 [History] Cholecalciferol [Vitamin D3 (25 Mcg = 1000 Iu)] 50 mcg PO PC-SUPPER 04/30/21 [History] [place] Carbonate 300 mg PO PC-SUPPER 04/30/21 [History] Lurasidone [Latuda] 40 mg PO PC-SUPPER 04/30/21 [History] Aspirin 81 mg PO DAILY #90 tab 05/02/21 [Rx] Atorvastatin [Lipitor] 80 mg PO HS #90 tab 05/02/21 [Rx] Melatonin 5 mg PO HS #1 tablet 05/02/21 [Rx] Metoprolol Tartrate [Lopressor] 50 mg PO BID #180 tab 05/02/21 [Rx] Nicotine 21Mg/24Hr Patch [Habitrol] 1 patch TRANSDERM DAILY #14 patch 05/02/21 [Rx] Nitroglycerin Sl Tabs [Nitrostat] 0.4 mg SUBLINGUAL Q5M PRN #100 tab 05/02/21 [Rx] Ticagrelor [Brilinta] 90 mg PO BID #180 tab 05/02/21 [Rx] Follow up Appointment(s)/Referral(s): Oziel Jacobsen DO [Primary Care Provider] - 05/14/21 2:20 pm Jeb Mascorro DO [STAFF PHYSICIAN] - 1 Week (office will call you for appointment) Patient Instructions/Handouts: *Surgery [facility] - After Heart Catheterization - Field Gauger Instructions Discharge Disposition: HOME SELF-CARE
[2021-05-02] MEDS ORDERED: METOPROLOL TARTRATE 50 MG TAB PO SCH (21:00)
== END 2021-05-02 15:23 | disposition home or self-care (01) | DRG 247 ==
LOC: EC 20:26 → 2SICU 21:06 → 3SCARD 05-01 16:06
PROVIDERS: ADMIT Hospitalist; ATTEND Hospitalist
PROC: 4A023N7 Measurement of Cardiac Sampling and Pressure, Left Heart, Percutaneous Approach (ICD-10-PCS; principal; 2021-04-30 21:17)
PROC: 027034Z Dilation of Coronary Artery, One Artery with Drug-eluting Intraluminal Device, Percutaneous Approach (ICD-10-PCS; principal; 2021-04-30 21:17)
PROC: B2111ZZ Fluoroscopy of Multiple Coronary Arteries using Low Osmolar Contrast (ICD-10-PCS; principal; 2021-04-30 21:17)
DX: I21.02 ST elevation (STEMI) myocardial infarction involving left anterior descending coronary artery (principal); I25.10 Atherosclerotic heart disease of native coronary artery without angina pectoris; I10 Essential (primary) hypertension; J44.9 Chronic obstructive pulmonary disease, unspecified; M19.90 Unspecified osteoarthritis, unspecified site; M16.0 Bilateral primary osteoarthritis of hip; E66.9 Obesity, unspecified; Z68.30 Body mass index [BMI] 30.0-30.9, adult; Z71.3 Dietary counseling and surveillance; E78.5 Hyperlipidemia, unspecified; F17.210 Nicotine dependence, cigarettes, uncomplicated; F25.0 Schizoaffective disorder, bipolar type; F41.9 Anxiety disorder, unspecified; G44.209 Tension-type headache, unspecified, not intractable; Z81.8 Family history of other mental and behavioral disorders; Z82.49 Family history of ischemic heart disease and other diseases of the circulatory system; Z83.3 Family history of diabetes mellitus; Z82.0 Family history of epilepsy and other diseases of the nervous system; Z79.899 Other long term (current) drug therapy; Z88.8 Allergy status to other drugs, medicaments and biological substances
CPT/HCPCS: 36415; 71045; 80048; 80053; 80178; 84484; 85025; 85610; 85730; 93005; 93306; 93458; 96374; 99285

== ENCOUNTER 2022-08-27 14:47 | Emergency (ER) | payer MEDICARE, OTHER ==
--- NOTE | 2022-08-27 16:13 | CT ---
EXAMINATION TYPE: CT cervical spine wo con CT DLP: 445.8 mGycm, Automated exposure control for dose reduction was used. DATE OF EXAM: 08/27/2022 4:03 PM COMPARISON: None. CLINICAL INDICATION:Female, 66 years old with history of pain; PHH, Neck pain TECHNIQUE: Axial CT images from the skull base to the inferior aspect of T2 we obtained without intra venous contrast. Coronal and sagittal reformatted images were also reviewed. FINDINGS: Fracture: None. Osseous structures: Multilevel degenerative disc disease changes with endplate spurring and disc oste ophyte complex's. Multilevel facet arthropathy. Vertebral alignment: Grade 1 anterolisthesis of C3 on C4 and mild retrolisthesis of C4 on C5. Spinal canal/Neural Foramina: Disc osteophyte complexes at C5-C6 and C6-C7 with at least mild spinal canal stenosis. Facet joint uncovertebral joint arthropathy scattered throughout the cervical spine w ith varying degrees of neural foraminal stenosis. This is most pronounced on the left at C3-C4 with s evere neural foraminal stenosis secondary to uncovertebral joint and facet hypertrophy. Neck soft tissues: Prevertebral soft tissues are within normal limits. Other: The airway is patent. Biapical scarring. IMPRESSION: 1. No evidence of cervical spine fracture. 2. Mild multilevel degenerative disc disease as described above. Consider further evaluation with MRI cervical spine if there is continued clinical concern.
--- NOTE | 2022-08-27 17:01 | ED ---
General Adult HPI - General Chief complaint: Neck Pain/Injury Stated complaint: Neck Pain Time Seen by Provider: 08/27/22 15:22 Source: patient, RN notes reviewed, old records reviewed Mode of arrival: ambulatory Limitations: no limitations - History of Present Illness Initial comments: 66-year-old female presents for evaluation of left-sided neck pain. Pain has been chronic in nature. She does take meloxicam and she states this is improving her symptoms. She denies new injury. She denies numbness or tingling in the upper extremities. She denies gait abnormality. No fever. No chest pain or dyspnea. - Related Data Home Medications Medication Instructions Recorded Confirmed Acetaminophen/Caffeine [Excedrin 1 tab PO PC-SUPPER 04/30/21 04/30/21 Tension Headache] Cholecalciferol [Vitamin D3 (25 50 mcg PO PC-SUPPER 04/30/21 04/30/21 Mcg = 1000 Iu)] [place] Carbonate 300 mg PO PC-SUPPER 04/30/21 04/30/21 Lurasidone [Latuda] 40 mg PO PC-SUPPER 04/30/21 04/30/21 Previous Rx's Medication Instructions Recorded Aspirin 81 mg PO DAILY #90 tab 05/02/21 Atorvastatin [Lipitor] 80 mg PO HS #90 tab 05/02/21 Melatonin 5 mg PO HS #1 tablet 05/02/21 Metoprolol Tartrate [Lopressor] 50 mg PO BID #180 tab 05/02/21 Nicotine 21Mg/24Hr Patch [Habitrol] 1 patch TRANSDERM DAILY #14 patch 05/02/21 Nitroglycerin Sl Tabs [Nitrostat] 0.4 mg SUBLINGUAL Q5M PRN #100 tab 05/02/21 Ticagrelor [Brilinta] 90 mg PO BID #180 tab 05/02/21 Cyclobenzaprine [Flexeril] 5 mg PO HS 5 Days #5 tab 08/27/22 Allergies Allergy/AdvReac Type Severity Reaction Status Date / Time citalopram hydrobromide Allergy Unknown Verified 08/27/22 14:55 [From Celexa] olanzapine [From Zyprexa] Allergy rash & Verified 08/27/22 14:55 itching Review of Systems ROS Statement: Those systems with pertinent positive or pertinent negative responses have been documented in the HPI. ROS Other: All systems not noted in ROS Statement are negative. Past Medical History Past Medical History: Hyperlipidemia, Osteoarthritis (OA) Additional Past Medical History / Comment(s): hips -degeneratve joint disease Last Myocardial Infarction Date:: 04/30/21 History of Any Multi-Drug Resistant Organisms: None Reported Past Surgical History: No Surgical Hx Reported Additional Past Surgical History / Comment(s): Cosmetic surgery on her nose 1978. Past Anesthesia/Blood Transfusion Reactions: No Reported Reaction Additional Past Anesthesia/Blood Transfusion Reaction / Comment(s): pt very sensitive to medications Date of Last Stent Placement:: 04/30/21 Past Psychological History: Anxiety, Bipolar Smoking Status: Current every day smoker Past Alcohol Use History: Occasional Past Drug Use History: None Reported - Past Family History Father Family Medical History: Myocardial Infarction ([place]) Additional Family Medical History / Comment(s): [place] x 2- Mother Family Medical History: Diabetes Mellitus Additional Family Medical History / Comment(s): Mother is alive at age 79 with history of Diabetes., polio,depression General Exam Limitations: no limitations General appearance: alert, in no apparent distress Head exam: Present: atraumatic, normocephalic Eye exam: Present: normal appearance, PERRL ENT exam: Present: normal exam Neck exam: Present: normal inspection, tenderness (Left paraspinal), full ROM. Absent: meningismus Respiratory exam: Present: normal lung sounds bilaterally. Absent: respiratory distress Cardiovascular Exam: Present: regular rate, normal rhythm GI/Abdominal exam: Present: soft. Absent: distended, tenderness, guarding Extremities exam: Present: normal inspection, normal capillary refill. Absent: pedal edema Neurological exam: Present: alert, oriented X3, CN II-XII intact, other (Strength is 5 out of 5 in the upper extremity, normal ocular pathologist strength, normal sensation). Absent: motor sensory deficit Psychiatric exam: Present: normal affect, normal mood Skin exam: Present: warm, dry, intact Course Vital Signs 08/27/22 08/27/22 14:53 17:45 Temperature 98.6 F 98.2 F Pulse Rate 100 78 Respiratory 18 16 Rate Blood Pressure 158/88 154/99 O2 Sat by Pulse 96 98 Oximetry Medical Decision Making - Medical Decision Making Was pt. sent in by a medical professional or institution (, PA, REPAIR COIL WINDER, urgent care, hospital, or assisted...) When possible be specific @ -No Did you speak to anyone other than the patient for history (EMS, parent, family, police, friend...)? What history was obtained from this source @ -No Did you review nursing and triage notes (agree or disagree)? Why? @ -I reviewed and agree with nursing and triage notes Were old charts reviewed (outside hosp., previous admission, EMS record, old EKG, old radiological studies, urgent care reports/EKG's, assisted records)? Report findings @ -No old charts were reviewed Differential Diagnosis (chest pain, altered mental status, abdominal pain women, abdominal pain men, vaginal bleeding, weakness, fever, dyspnea, syncope, headache, dizziness, GI bleed, back pain, seizure, CVA, palpatations, mental health, musculoskeletal)? @ -Differential Musculoskeletal Muscular strain, contusion, ligament sprain, fracture, arthritis, septic arthritis, bursitis, cellulitis, muscle spasm, nerve compression, DVT, arterial occlusion, herpes zoster, electrolyte abnormality, tumor.... This is not meant to be in all inclusive list EKG interpreted by me (3pts min.). @ -As above X-rays interpreted by me (1pt min.). @ -None done CT interpreted by me (1pt min.). @Negative for acute fracture subluxation, showing multilevel degenerative change U/S interpreted by me (1pt. min.). @ -None done What testing was considered but not performed or refused? (CT, X-rays, U/S, labs)? Why? @ -None What meds were considered but not given or refused? Why? @ -None Did you discuss the management of the patient with other professionals (professionals i.e. , PA, REPAIR COIL WINDER, lab, RT, psych nurse, social sciences professor, radiologic tech, teacher, chief financial officer, binder caser)? Give summary @ -No Was smoking cessation discussed for >3mins.? @ -No Was critical care preformed (if so, how long)? @ -No Were there social determinants of health that impacted care today? How? (Homelessness, low income, unemployed, alcoholism, drug addiction, transportation, low edu. Level, literacy, decrease access to med. care, half-way, rehab)? @ -No Was there de-escalation of care discussed even if they declined (Discuss DNR or withdrawal of care, Hospice)? DNR status @ -No What co-morbidities impacted this encounter? (DM, HTN, Smoking, COPD, CAD, Cancer, CVA, ARF, Chemo, Hep., AIDS, mental health diagnosis, sleep apnea, morbid obesity)? @ -Arthritis Was patient admitted / discharged? Hospital course, mention meds given and route, prescriptions, significant lab abnormalities, going to OR and other pertinent info. @ -66-year-old female with chronic neck pain. CT does show multilevel degenerative change in foraminal stenosis without fracture subluxation. Patient will benefit from referral to orthopedics. Undiagnosed new problem with uncertain prognosis? @ -No Drug Therapy requiring intensive monitoring for toxicity (Heparin, Nitro, Insulin, Cardizem)? @ -No Were any procedures done? @ -No Diagnosis/symptom? @ -[Cervical spine degenerative change Acute, or Chronic, or Acute on Chronic? @chronic Uncomplicated (without systemic symptoms) or Complicated (systemic symptoms)? @ -[Uncomplicated Side effects of treatment? @ -No Exacerbation, Progression, or Severe Exacerbation? @ -No Poses a threat to life or bodily function? How? (Chest pain, [place], [place], pneumonia, PE, COPD, DKA, ARF, appy, cholecystitis, CVA, Diverticulitis, Homicidal, Suicidal, threat to staff... and all critical care pts) @ - Low Risk Disposition Clinical Impression: Strain of neck muscle Disposition: HOME SELF-CARE Condition: Fair Instructions (If sedation given, give patient instructions): Cervical Strain (ED) Prescriptions: Cyclobenzaprine [Flexeril] 5 mg PO HS 5 Days #5 tab Is patient prescribed a controlled substance at d/c from ED?: No Referrals: Oziel Jacobsen DO [Primary Care Provider] - 1-2 days Sher Kimble MD [STAFF PHYSICIAN] - 1-2 days Time of Disposition: 17:03
[2022-08-27 17:47] VITALS: BP 154/99; PULSE 78; RESP 16; TEMP 98.2
== END 2022-08-27 17:50 | disposition home or self-care (01) ==
LOC: EC 14:47
DX: S16.1XXA Strain of muscle, fascia and tendon at neck level, initial encounter (principal); M19.90 Unspecified osteoarthritis, unspecified site; F41.9 Anxiety disorder, unspecified; F31.9 Bipolar disorder, unspecified; F17.200 Nicotine dependence, unspecified, uncomplicated; Z79.1 Long term (current) use of non-steroidal anti-inflammatories (NSAID); Z79.899 Other long term (current) drug therapy; Z88.6 Allergy status to analgesic agent; Z88.8 Allergy status to other drugs, medicaments and biological substances; X58.XXXA Exposure to other specified factors, initial encounter
CPT/HCPCS: 72125; 99283

== ENCOUNTER 2022-09-29 03:21 | Emergency (ER) | payer MEDICARE, OTHER ==
[2022-09-29 03:54] VITALS: PULSE 64; TEMP 98.2
[2022-09-29] MEDS ORDERED: ACET/COD 300 MG/30 MG STARTER PACK 6 TAB BTL PO STA (04:54)
[2022-09-29] MEDS ORDERED: KETOROLAC 15 MG/ML 1 ML VIAL IM STA (04:54)
[2022-09-29] MEDS ORDERED: Acetaminophen-Codeine 300-30mg TAB PO STA (04:54)
[2022-09-29] MEDS ORDERED: CYCLOBENZAPRINE 10 MG TAB PO STA (04:54)
[2022-09-29] MEDS ORDERED: CYCLOBENZAPRINE 10MG STARTER 3 TAB BTL PO STA (04:54)
[2022-09-29] MEDS ORDERED: IBUPROFEN 600 MG STARTER PACK 4 TAB BTL PO STA (04:54)
--- NOTE | 2022-09-29 05:10 | ED ---
Back Pain HPI - General Chief Complaint: Back Pain/Injury Stated Complaint: Back Spasms Time Seen by Provider: 09/29/22 04:38 Source: patient, RN notes reviewed, old records reviewed Mode of arrival: EMS Limitations: no limitations - History of Present Illness Initial Comments: This is 66-year-old female to the emergency department for evaluation of severe back pain with back spasms. Patient has no history of back trauma. But history of similar neck pain patient's pain is persistent here in the emergency department with sharp stabbing back pain. Patient states she took some sort of muscle relaxer when she had neck pain and it did resolve her symptoms. Again no trauma no other complaints. Patient is just asking for muscle relaxer MD Complaint: back pain, other (Muscle spasm) -: hour(s) Similar Symptoms Previously: Yes Place: home Radiation: buttocks, flank Severity: severe Severity scale (1-10): 10 Quality: sharp Consistency: intermittent Improves With: none Worsens With: none Context: while lifting, turning/twisting Associated Symptoms: denies other symptoms - Related Data Home Medications Medication Instructions Recorded Confirmed Acetaminophen/Caffeine [Excedrin 1 tab PO PC-SUPPER 04/30/21 04/30/21 Tension Headache] Cholecalciferol [Vitamin D3 (25 50 mcg PO PC-SUPPER 04/30/21 04/30/21 Mcg = 1000 Iu)] [place] Carbonate 300 mg PO PC-SUPPER 04/30/21 04/30/21 Lurasidone [Latuda] 40 mg PO PC-SUPPER 04/30/21 04/30/21 Previous Rx's Medication Instructions Recorded Aspirin 81 mg PO DAILY #90 tab 05/02/21 Atorvastatin [Lipitor] 80 mg PO HS #90 tab 05/02/21 Melatonin 5 mg PO HS #1 tablet 05/02/21 Metoprolol Tartrate [Lopressor] 50 mg PO BID #180 tab 05/02/21 Nicotine 21Mg/24Hr Patch [Habitrol] 1 patch TRANSDERM DAILY #14 patch 05/02/21 Nitroglycerin Sl Tabs [Nitrostat] 0.4 mg SUBLINGUAL Q5M PRN #100 tab 05/02/21 Ticagrelor [Brilinta] 90 mg PO BID #180 tab 05/02/21 Cyclobenzaprine [Flexeril] 5 mg PO HS 5 Days #5 tab 08/27/22 Allergies Allergy/AdvReac Type Severity Reaction Status Date / Time citalopram hydrobromide Allergy Unknown Verified 09/29/22 03:53 [From Celexa] olanzapine [From Zyprexa] Allergy rash & Verified 09/29/22 03:53 itching Review of Systems ROS Statement: Those systems with pertinent positive or pertinent negative responses have been documented in the HPI. ROS Other: All systems not noted in ROS Statement are negative. Past Medical History Past Medical History: Hyperlipidemia, Osteoarthritis (OA) Additional Past Medical History / Comment(s): hips -degeneratve joint disease Last Myocardial Infarction Date:: 04/30/21 History of Any Multi-Drug Resistant Organisms: None Reported Past Surgical History: No Surgical Hx Reported Additional Past Surgical History / Comment(s): Cosmetic surgery on her nose 1978. Past Anesthesia/Blood Transfusion Reactions: No Reported Reaction Additional Past Anesthesia/Blood Transfusion Reaction / Comment(s): pt very sensitive to medications Date of Last Stent Placement:: 04/30/21 Past Psychological History: Anxiety, Bipolar Smoking Status: Current every day smoker Past Alcohol Use History: Occasional Past Drug Use History: None Reported - Past Family History Father Family Medical History: Myocardial Infarction ([place]) Additional Family Medical History / Comment(s): [place] x 2- Mother Family Medical History: Diabetes Mellitus Additional Family Medical History / Comment(s): Mother is alive at age 79 with history of Diabetes., polio,depression General Exam General appearance: alert, in no apparent distress, anxious Head exam: Present: atraumatic, normocephalic, normal inspection Eye exam: Present: normal appearance, PERRL, EOMI. Absent: scleral icterus, conjunctival injection, periorbital swelling ENT exam: Present: normal exam, mucous membranes moist Neck exam: Present: normal inspection. Absent: tenderness, meningismus, lymphadenopathy Respiratory exam: Present: normal lung sounds bilaterally. Absent: respiratory distress, wheezes, rales, rhonchi, stridor Cardiovascular Exam: Present: regular rate, normal rhythm, normal heart sounds. Absent: systolic murmur, diastolic murmur, rubs, gallop, clicks GI/Abdominal exam: Present: soft, normal bowel sounds. Absent: distended, tenderness, guarding, rebound, rigid Extremities exam: Present: normal inspection, full ROM, normal capillary refill. Absent: tenderness, pedal edema, joint swelling, calf tenderness Back exam: Present: normal inspection Neurological exam: Present: alert, oriented X3, CN II-XII intact Psychiatric exam: Present: normal affect, normal mood Skin exam: Present: warm, dry, intact, normal color. Absent: rash Course Vital Signs 09/29/22 09/29/22 03:48 05:18 Temperature 98.2 F Pulse Rate 64 64 Respiratory 18 20 Rate Blood Pressure 123/83 153/98 O2 Sat by Pulse 98 97 Oximetry - Reevaluation(s) Reevaluation #1: 09/29/22 06:24 Medical records reviewed Reevaluation #2: 09/29/22 06:25 Patient symptoms are resolved here in the ER she feels much better Reevaluation #3: 09/29/22 06:25 Patient informed of results and questions answered Reevaluation #4: 09/29/22 06:25 Was pt. sent in by a medical professional or institution (, PA, ANIMAL CARE SERVICE WORKER, urgent care, hospital, or [facility]...) When possible be specific @ -no Did you speak to anyone other than the patient for history (EMS, parent, family, police, friend...)? What history was obtained from this source @ -no Did you review nursing and triage notes (agree or disagree)? Why? @ -agree Are old charts reviewed (outside hosp., previous admission, EMS record, old EKG, old radiological studies, urgent care reports/EKG's, [facility] records)? Report findings @ -yes Differential Diagnosis (chest pain, altered mental status, abdominal pain women, abdominal pain men, vaginal bleeding, weakness, fever, dyspnea, syncope, headache, dizziness, GI bleed, back pain, seizure, CVA, palpatations, mental health, musculoskeletal)? @ -prior EKG interpreted by me (3pts min.). @ -no X-rays interpreted by me (1pt min.). @ -no CT interpreted by me (1pt min.). @ -no U/S interpreted by me (1pt. min.). @ -no What testing was considered but not performed or refused? (CT, X-rays, U/S, labs)? Why? @ -none What meds were considered but not given or refused? Why? @ -none Did you discuss the management of the patient with other professionals (professionals i.e. , PA, ANIMAL CARE SERVICE WORKER, lab, RT, psych nurse, social media sr strategy manager, rn icu, teacher, ordnance corps officer, transplant case manager)? Give summary @ -no Was smoking cessation discussed for >3mins.? @ -no Was critical care preformed (if so, how long)? @ -no Were there social determinants of health that impacted care today? How? (Homel essness, low income, unemployed, alcoholism, drug addiction, transportation, low edu. Level, literacy, decrease access to med. care, [facility], rehab)? @ -none Was there de-escalation of care discussed even if they declined (Discuss DNR or withdrawal of care, Hospice)? DNR status @ -no What co-morbidities impacted this encounter? (DM, HTN, Smoking, COPD, CAD, Cancer, CVA, ARF, Chemo, Hep., AIDS, mental health diagnosis, sleep apnea, morbid obesity)? @ -none Was patient admitted / discharged? Hospital course, mention meds given and route, prescriptions, significant lab abnormalities, going to OR and other pertinent info. @ - 66 female to the emergency department for evaluation of muscle spasms or back pain. Patient's able to ambulate symptoms resolved here in the ER patient feels comfortable with discharge home, no neurological deficits no fevers no loss of bowel or bladder Discharge Undiagnosed new problem with uncertain prognosis? @ -no Drug Therapy requiring intensive monitoring for toxicity (Heparin, Nitro, Insulin, Cardizem)? @ -no Were any procedures done? @ -no Diagnosis/symptom? @ -Back pain muscle spasm Acute, or Chronic, or Acute on Chronic? @ -Acute Uncomplicated (without systemic symptoms) or Complicated (systemic symptoms)? @ -Complicated Side effects of treatment? @ -no Exacerbation, Progression, or Severe Exacerbation? @ -exacerbation Poses a threat to life or bodily function? How? (Chest pain, [place], [place], pneumonia, PE, COPD, DKA, ARF, appy, cholecystitis, CVA, Diverticulitis, Homicidal, Suicidal, threat to staff... and all critical care pts) @ -no Reevaluation #5: 09/29/22 06:25 Differential Back Pain: Strain, zoster, cauda equina syndrome, epidural abscess, vertebral osteomyelitis, discitis, fracture, subluxation, disc herniation, DJD, spinal stenosis, dissection, AAA, pancreatitis, peptic ulcer disease, pyelonephritis, kidney stone, this is not meant to be an all-inclusive list. Medical Decision Making - Medical Decision Making 66 female to the emergency department for evaluation of muscle spasms or back pain. Patient's able to ambulate symptoms resolved here in the ER patient feels comfortable with discharge home, no neurological deficits no fevers no loss of bowel or bladder Disposition Clinical Impression: Mid back pain, Strain of lumbar region Disposition: HOME SELF-CARE Condition: Good Instructions (If sedation given, give patient instructions): Acute Low Back Pain (ED) Is patient prescribed a controlled substance at d/c from ED?: No Referrals: Oziel Jacobsen DO [Primary Care Provider] - 1-2 days Time of Disposition: 05:00
[2022-09-29 05:19] VITALS: BP 153/98; RESP 20
== END 2022-09-29 05:19 | disposition home or self-care (01) ==
LOC: EC 03:21
DX: S39.012A Strain of muscle, fascia and tendon of lower back, initial encounter (principal); M19.90 Unspecified osteoarthritis, unspecified site; I25.2 Old myocardial infarction; F31.9 Bipolar disorder, unspecified; F41.9 Anxiety disorder, unspecified; F17.200 Nicotine dependence, unspecified, uncomplicated; Z88.8 Allergy status to other drugs, medicaments and biological substances; Z79.899 Other long term (current) drug therapy; X50.9XXA Other and unspecified overexertion or strenuous movements or postures, initial encounter
CPT/HCPCS: 99283; 96372; J1885

== ENCOUNTER 2022-10-05 20:25 | Emergency (ER) | payer MEDICARE, OTHER ==
[2022-10-05 20:42] VITALS: RESP 20
--- NOTE | 2022-10-05 22:56 | ED ---
Psych HPI - General Chief Complaint: Psychiatric Symptoms Stated Complaint: petition Time Seen by Provider: 10/05/22 20:45 Source: police Mode of arrival: ambulatory - History of Present Illness Initial Comments: 66 year old female with past history of bipolar disorder who presents to the emergency department accompanied by police. The patient was found outside an apartment yelling with nonsensical speech and flight of ideas. She does rambling and therefore police were called. She does have a known psychiatric history and states that she was not taking her medications therefore patient was taken to the hospital for psychiatric evaluation. She denies any drug or alcohol use. History is difficult to obtain due to tangential speech. No other alleviating, precipitating or modifying factors - Related Data Home Medications Medication Instructions Recorded Confirmed Acetaminophen/Caffeine [Excedrin 1 tab PO PC-SUPPER 04/30/21 04/30/21 Tension Headache] Cholecalciferol [Vitamin D3 (25 50 mcg PO PC-SUPPER 04/30/21 04/30/21 Mcg = 1000 Iu)] [place] Carbonate 300 mg PO PC-SUPPER 04/30/21 04/30/21 Lurasidone [Latuda] 40 mg PO PC-SUPPER 04/30/21 04/30/21 Previous Rx's Medication Instructions Recorded Aspirin 81 mg PO DAILY #90 tab 05/02/21 Atorvastatin [Lipitor] 80 mg PO HS #90 tab 05/02/21 Melatonin 5 mg PO HS #1 tablet 05/02/21 Metoprolol Tartrate [Lopressor] 50 mg PO BID #180 tab 05/02/21 Nicotine 21Mg/24Hr Patch [Habitrol] 1 patch TRANSDERM DAILY #14 patch 05/02/21 Nitroglycerin Sl Tabs [Nitrostat] 0.4 mg SUBLINGUAL Q5M PRN #100 tab 05/02/21 Ticagrelor [Brilinta] 90 mg PO BID #180 tab 05/02/21 Cyclobenzaprine [Flexeril] 5 mg PO HS 5 Days #5 tab 08/27/22 Allergies Allergy/AdvReac Type Severity Reaction Status Date / Time citalopram hydrobromide Allergy Unknown Verified 09/29/22 03:53 [From Celexa] olanzapine [From Zyprexa] Allergy rash & Verified 09/29/22 03:53 itching Review of Systems ROS Statement: Those systems with pertinent positive or pertinent negative responses have been documented in the HPI. ROS Other: All systems not noted in ROS Statement are negative. Past Medical History Past Medical History: Hyperlipidemia, Osteoarthritis (OA) Additional Past Medical History / Comment(s): hips -degeneratve joint disease Last Myocardial Infarction Date:: 04/30/21 History of Any Multi-Drug Resistant Organisms: None Reported Past Surgical History: No Surgical Hx Reported Additional Past Surgical History / Comment(s): Cosmetic surgery on her nose 1978. Past Anesthesia/Blood Transfusion Reactions: No Reported Reaction Additional Past Anesthesia/Blood Transfusion Reaction / Comment(s): pt very sensitive to medications Date of Last Stent Placement:: 04/30/21 Past Psychological History: Anxiety, Bipolar Smoking Status: Current every day smoker Past Alcohol Use History: Occasional Past Drug Use History: None Reported - Past Family History Father Family Medical History: Myocardial Infarction ([place]) Additional Family Medical History / Comment(s): [place] x 2- Mother Family Medical History: Diabetes Mellitus Additional Family Medical History / Comment(s): Mother is alive at age 79 with history of Diabetes., polio,depression General Exam Limitations: altered mental status General appearance: alert, in no apparent distress Head exam: Present: atraumatic, normocephalic, normal inspection Eye exam: Present: normal appearance, PERRL, EOMI. Absent: scleral icterus, conjunctival injection, periorbital swelling ENT exam: Present: normal exam, mucous membranes moist Neck exam: Present: normal inspection. Absent: tenderness, meningismus, lymphadenopathy Respiratory exam: Present: normal lung sounds bilaterally. Absent: respiratory distress, wheezes, rales, rhonchi, stridor Cardiovascular Exam: Present: normal rhythm, tachycardia, normal heart sounds. Absent: systolic murmur, diastolic murmur, rubs, gallop, clicks GI/Abdominal exam: Present: soft, normal bowel sounds. Absent: distended, tenderness, guarding, rebound, rigid Extremities exam: Present: normal inspection, full ROM, normal capillary refill. Absent: tenderness, pedal edema, joint swelling, calf tenderness Back exam: Present: normal inspection Neurological exam: Present: alert, oriented X3, CN II-XII intact Psychiatric exam: Present: manic, other (Tangential speech, flight of ideas). Absent: homicidal ideation, suicidal ideation Skin exam: Present: warm, dry, intact, normal color. Absent: rash Course Vital Signs 10/05/22 10/05/22 20:38 23:00 Temperature 98 F 98.0 F Pulse Rate 112 H 98 Respiratory 20 20 Rate Blood Pressure 174/77 178/84 O2 Sat by Pulse 98 98 Oximetry Medical Decision Making - Medical Decision Making Was pt. sent in by a medical professional or institution (, [facility], [employer], urgent care, hospital, or [facility]...) When possible be specific @ -Police Did you speak to anyone other than the patient for history (EMS, parent, family, police, friend...)? What history was obtained from this source @ -Police provide history Did you review nursing and triage notes (agree or disagree)? Why? @ -I reviewed and agree with nursing and triage notes Were old charts reviewed (outside hosp., previous admission, EMS record, old EKG, old radiological studies, urgent care reports/EKG's, [facility] records)? Report findings @ -No old charts were reviewed Differential Diagnosis (chest pain, altered mental status, abdominal pain women, abdominal pain men, vaginal bleeding, weakness, fever, dyspnea, syncope, headache, dizziness, GI bleed, back pain, seizure, CVA, palpatations, mental health, musculoskeletal)? @ -Differential Mental Health Depression, anxiety, bipolar, psychosis, schizophrenia, borderline personality, situational depression, adjustment disorder, behavioral disorder, brain tumor, malingering, substance abuse, encephalopathy, medication reaction, dementia, hypothyroidism, degenerative neurologic disorder, lupus.... This is not meant to be all-inclusive list EKG interpreted by me (3pts min.). @ -None done X-rays interpreted by me (1pt min.). @ -None done CT interpreted by me (1pt min.). @ -None done U/S interpreted by me (1pt. min.). @ -None done What testing was considered but not performed or refused? (CT, X-rays, U/S, labs)? Why? @ -None What meds were considered but not given or refused? Why? @ -None Did you discuss the management of the patient with other professionals (professionals i.e. , KIRAN, BODY WORK AUT[employer] TRIMMER, lab, RT, psych nurse, vp digital marketing social media and crm, card grinder, teacher, assistant chief nursing officer, case filler)? Give summary @ -EPS nurse Was smoking cessation discussed for >3mins.? @ -No Was critical care preformed (if so, how long)? @ -No Were there social determinants of health that impacted care today? How? (Homelessness, low income, unemployed, alcoholism, drug addiction, transportation, low edu. Level, literacy, decrease access to med. care, nursing home, rehab)? @ -No Was there de-escalation of care discussed even if they declined (Discuss DNR or withdrawal of care, Hospice)? DNR status @ -No What co-morbidities impacted this encounter? (DM, HTN, Smoking, COPD, CAD, Cancer, CVA, ARF, Chemo, Hep., AIDS, mental health diagnosis, sleep apnea, morbid obesity)? @ -Bipolar disorder Was patient admitted / discharged? Hospital course, mention meds given and route, prescriptions, significant lab abnormalities, going to OR and other pertinent info. @ -Upon arrival patient was placed into room 12. Thorough history and physical exam is performed. She is sober at this time. She is evaluated by EPS. They feel that the patient is her baseline. Patient is not suicidal, homicidal or hallucinating. Patient will be discharged home at this time. Needs to follow up with [facility]. Return for any new or worsening symptoms. Patient was discharged in stable condition Undiagnosed new problem with uncertain prognosis? @ -No Drug Therapy requiring intensive monitoring for toxicity (Heparin, Nitro, Insulin, Cardizem)? @ -No Were any procedures done? @ -No Diagnosis/symptom? @ -acute pressured speech, hx bipolar Acute, or Chronic, or Acute on Chronic? @ -acute on chronic Uncomplicated (without systemic symptoms) or Complicated (systemic symptoms)? @ -Complicated Side effects of treatment? @ -No Exacerbation, Progression, or Severe Exacerbation? @ -No Poses a threat to life or bodily function? How? (Chest pain, [place], [place], pneumonia, PE, COPD, DKA, ARF, appy, cholecystitis, CVA, Diverticulitis, Homicidal, Suicidal, threat to staff... and all critical care pts) @ -No - Lab Data Lab Results 10/05/22 10/05/22 Range/Units 21:34 21:34 [place] <0.2 mmol/L Coronavirus (PCR) Not Detected (Not Detectd) Disposition Clinical Impression: Bipolar disorder Disposition: HOME SELF-CARE Condition: Stable Instructions (If sedation given, give patient instructions): Bipolar Disorder (ED) Additional Instructions: Please follow up with [facility]. Return for any new or worsening symptoms Is patient prescribed a controlled substance at d/c from ED?: No Referrals: Oziel Jacobsen DO [Primary Care Provider] - 1-2 days Time of Disposition: 22:56
[2022-10-05 23:20] VITALS: BP 178/84; PULSE 98; TEMP 98
== END 2022-10-05 23:00 | disposition home or self-care (01) ==
LOC: EC 20:25
DX: F31.9 Bipolar disorder, unspecified (principal); M19.90 Unspecified osteoarthritis, unspecified site; F41.9 Anxiety disorder, unspecified; I25.2 Old myocardial infarction; F17.200 Nicotine dependence, unspecified, uncomplicated; Z88.8 Allergy status to other drugs, medicaments and biological substances; Z79.899 Other long term (current) drug therapy; Z20.822 Contact with and (suspected) exposure to COVID-19
CPT/HCPCS: 36415; 80178; 82075; 87635; 99285

== ENCOUNTER 2022-10-07 00:13 | Inpatient (IN) | payer MEDICARE, OTHER ==
--- NOTE | 2022-10-07 00:40 | ED ---
General Adult HPI - General Chief complaint: Psychiatric Symptoms Stated complaint: Mental Health Time Seen by Provider: 10/07/22 00:14 Source: patient, EMS, RN notes reviewed, old records reviewed Mode of arrival: EMS Limitations: altered mental status - History of Present Illness Initial comments: 66-year-old female presents for medical health evaluation. Apparently the patient's family had contacted paramedics for transport for psychiatric evaluation. The patient does have history of bipolar depression. She is not able to contribute at all to the history. She is alert but has pressured speech and is nonsensical. - Related Data Home Medications Medication Instructions Recorded Confirmed Acetaminophen/Caffeine [Excedrin 1 tab PO PC-SUPPER 04/30/21 04/30/21 Tension Headache] Cholecalciferol [Vitamin D3 (25 50 mcg PO PC-SUPPER 04/30/21 04/30/21 Mcg = 1000 Iu)] [place] Carbonate 300 mg PO PC-SUPPER 04/30/21 04/30/21 Lurasidone [Latuda] 40 mg PO PC-SUPPER 04/30/21 04/30/21 Previous Rx's Medication Instructions Recorded Aspirin 81 mg PO DAILY #90 tab 05/02/21 Atorvastatin [Lipitor] 80 mg PO HS #90 tab 05/02/21 Melatonin 5 mg PO HS #1 tablet 05/02/21 Metoprolol Tartrate [Lopressor] 50 mg PO BID #180 tab 05/02/21 Nicotine 21Mg/24Hr Patch [Habitrol] 1 patch TRANSDERM DAILY #14 patch 05/02/21 Nitroglycerin Sl Tabs [Nitrostat] 0.4 mg SUBLINGUAL Q5M PRN #100 tab 05/02/21 Ticagrelor [Brilinta] 90 mg PO BID #180 tab 05/02/21 Cyclobenzaprine [Flexeril] 5 mg PO HS 5 Days #5 tab 08/27/22 Allergies Allergy/AdvReac Type Severity Reaction Status Date / Time citalopram hydrobromide Allergy Unknown Verified 09/29/22 03:53 [From Celexa] olanzapine [From Zyprexa] Allergy rash & Verified 09/29/22 03:53 itching Review of Systems ROS Statement: Those systems with pertinent positive or pertinent negative responses have been documented in the HPI. ROS Other: All systems not noted in ROS Statement are negative. Past Medical History Past Medical History: Hyperlipidemia, Osteoarthritis (OA) Additional Past Medical History / Comment(s): hips -degeneratve joint disease Last Myocardial Infarction Date:: 04/30/21 History of Any Multi-Drug Resistant Organisms: None Reported Past Surgical History: No Surgical Hx Reported Additional Past Surgical History / Comment(s): Cosmetic surgery on her nose 1978. Past Anesthesia/Blood Transfusion Reactions: No Reported Reaction Additional Past Anesthesia/Blood Transfusion Reaction / Comment(s): pt very sensitive to medications Date of Last Stent Placement:: 04/30/21 Past Psychological History: Anxiety, Bipolar Smoking Status: Current every day smoker Past Alcohol Use History: Occasional Past Drug Use History: None Reported - Past Family History Father Family Medical History: Myocardial Infarction ([place]) Additional Family Medical History / Comment(s): [place] x 2- Mother Family Medical History: Diabetes Mellitus Additional Family Medical History / Comment(s): Mother is alive at age 79 with history of Diabetes., polio,depression General Exam Limitations: altered mental status General appearance: alert, in no apparent distress Head exam: Present: atraumatic, normocephalic Eye exam: Present: normal appearance, PERRL, EOMI Respiratory exam: Present: normal lung sounds bilaterally. Absent: respiratory distress, wheezes Cardiovascular Exam: Present: regular rate, normal rhythm GI/Abdominal exam: Present: soft. Absent: distended, tenderness Extremities exam: Present: normal inspection, normal capillary refill Neurological exam: Present: alert. Absent: oriented X3 Psychiatric exam: Present: other (Tangential, pressured speech, manic). Absent: suicidal ideation Skin exam: Present: warm, dry, intact Course Vital Signs 10/07/22 00:17 Temperature 98.2 F Pulse Rate 97 Respiratory 18 Rate Blood Pressure 176/90 O2 Sat by Pulse 100 Oximetry - Reevaluation(s) Reevaluation #1: 10/07/22 00:40 Patient cleared for EPS Medical Decision Making - Medical Decision Making Was pt. sent in by a medical professional or institution ([facility]IRAN Delgado, MEN'S DESIGNER, urgent care, hospital, or care home...) When possible be specific @ -No Did you speak to anyone other than the patient for history (EMS, parent, family, police, friend...)? What history was obtained from this source @ -[Paramedics Did you review nursing and triage notes (agree or disagree)? Why? @ -I reviewed and agree with nursing and triage notes Were old charts reviewed (outside hosp., previous admission, EMS record, old EKG, old radiological studies, urgent care reports/EKG's, care home records)? Report findings @ -No old charts were reviewed Differential Diagnosis (chest pain, altered mental status, abdominal pain women, abdominal pain men, vaginal bleeding, weakness, fever, dyspnea, syncope, headache, dizziness, GI bleed, back pain, seizure, CVA, palpatations, mental health, musculoskeletal)? @ Differential Mental Health Depression, anxiety, bipolar, psychosis, schizophrenia, borderline personality, situational depression, adjustment disorder, behavioral disorder, brain tumor, malingering, substance abuse, encephalopathy, medication reaction, dementia, hypothyroidism, degenerative neurologic disorder, lupus.... This is not meant to be all-inclusive list EKG interpreted by me (3pts min.). @ -As above X-rays interpreted by me (1pt min.). @ -None done CT interpreted by me (1pt min.). @ -None done U/S interpreted by me (1pt. min.). @ -None done What testing was considered but not performed or refused? (CT, X-rays, U/S, labs)? Why? @ -None What meds were considered but not given or refused? Why? @ -None Did you discuss the management of the patient with other professionals (professionals i.e. , PA, MEN'S DESIGNER, lab, RT, psych nurse, social studies department chair, floral associate, teacher, chief strategy officer, keycase assembler)? Give summary @ -[Case discussed with EPS, will admit for psychiatric evaluation Was smoking cessation discussed for >3mins.? @ -No Was critical care preformed (if so, how long)? @ -No Were there social determinants of health that impacted care today? How? (Homelessness, low income, unemployed, alcoholism, drug addiction, transp ortation, low edu. Level, literacy, decrease access to med. care, custodial, rehab)? @ -No Was there de-escalation of care discussed even if they declined (Discuss DNR or withdrawal of care, Hospice)? DNR status @ -No What co-morbidities impacted this encounter? (DM, HTN, Smoking, COPD, CAD, Cancer, CVA, ARF, Chemo, Hep., AIDS, mental health diagnosis, sleep apnea, morbid obesity)? @ -None Was patient admitted / discharged? Hospital course, mention meds given and route, prescriptions, significant lab abnormalities, going to OR and other pertinent info. @ -[66-year-old female presenting for mental health evaluation. Patient medically cleared and evaluated by EPS and felt to require inpatient psychiatric evaluation treatment. She will be admitted to this institution. Undiagnosed new problem with uncertain prognosis? @ -No Drug Therapy requiring intensive monitoring for toxicity (Heparin, Nitro, Insulin, Cardizem)? @ -No Were any procedures done? @ -No Diagnosis/symptom? @Acute psychosis Acute, or Chronic, or Acute on Chronic? @ -[Acute Uncomplicated (without systemic symptoms) or Complicated (systemic symptoms)? @ -default Side effects of treatment? @ -No Exacerbation, Progression, or Severe Exacerbation? @ -No Poses a threat to life or bodily function? How? (Chest pain, [place], [place], pneumonia, PE, COPD, DKA, ARF, appy, cholecystitis, CVA, Diverticulitis, Homicidal, Suicidal, threat to staff... and all critical care pts) @ -No Disposition Clinical Impression: Acute psychosis, Bipolar disorder Disposition: ADMITTED IP TO THIS HOSP Condition: Stable Is patient prescribed a controlled substance at d/c from ED?: No Referrals: Oziel Jacobsen DO [Primary Care Provider] - 1-2 days Time of Disposition: 02:39
[2022-10-07] MEDS ORDERED: HALOPERIDOL LACTATE 5 MG/ML 1 ML VIAL IM PRN (04:38)
[2022-10-07] MEDS ORDERED: LORazepam 2 MG/ML INJ IM PRN (04:38)
[2022-10-07] MEDS ORDERED: MAG HYDROX/AL HYDROX/SIMETH 30 ML CUP PO PRN (04:38)
[2022-10-07] MEDS ORDERED: MAGNESIUM HYDROXIDE 2,400 MG/30 ML CUP PO PRN (04:38)
[2022-10-07] MEDS ORDERED: haloperidoL 5 MG TAB PO PRN (04:38)
[2022-10-07] MEDS ORDERED: LORazepam 1 MG TAB PO PRN (04:38)
[2022-10-07] MEDS ORDERED: ACETAMINOPHEN TAB 325 MG TAB PO PRN (04:38)
[2022-10-07 05:57] LABS: Appearance,Urine Clear (Clear); Bilirubin,Urine Negative (Negative); Blood,Urine Negative (Negative); Color,Urine Light Yellow; Glucose,Urine (UA) Negative (Negative); Ketones,Urine Negative (Negative); Leukocyte Esterase,Urine Negative (Negative); Nitrite,Urine Negative (Negative); Protein,Urine Negative (Negative); Urobilinogen,Urine <2.0 mg/dL (<2.0)
[2022-10-07 06:07] LABS: Amphetamine Screen,Urine Not Detected (NotDetected); Barbiturate Screen,Urine Not Detected (NotDetected); Benzodiazepines Screen,Urine Not Detected (NotDetected); Cocaine Screen,Urine Not Detected (NotDetected); Methadone Screen, Urine Not Detected (NotDetected); Opiate Screen,Urine Not Detected (NotDetected); Oxycodone Screen, Urine Not Detected (NotDetected); Phencyclidine Screen,Urine Not Detected (NotDetected); Tricyclic Antidepressant,Urine Not Detected (NotDetected); Urn Cannabinoid Scrn Not Detected (NotDetected)
[2022-10-07] MEDS: NICOTINE 14MG/24HR PATCH TRANSDERM SCH (09:07)
--- NOTE | 2022-10-07 11:53 | P.HP ---
Psychiatric H&P - . H&P Date: 10/07/22 History & Physical: Allergies Allergy/AdvReac Type Severity Reaction Status Date / Time citalopram hydrobromide Allergy Unknown Verified 09/29/22 03:53 [From Celexa] olanzapine [From Zyprexa] Allergy rash & Verified 09/29/22 03:53 itching Vital Signs Temp 97.8 F 10/07/22 06:40 Pulse 92 10/07/22 06:40 Resp 20 10/07/22 06:40 BP 138/88 10/07/22 06:40 Pulse Ox 96 10/07/22 06:40 FiO2 Intake & Output 10/06/22 10/07/22 10/07/22 18:59 06:59 18:59 Weight 83.7 kg Laboratory Last Values Urine Color Light Yellow 10/07/22 05:35 Urine Appearance Clear (Clear) 10/07/22 05:35 Urine pH 6.0 (5.0-8.0) 10/07/22 05:35 Ur Specific [place] 1.010 (1.001-1.035) 10/07/22 05:35 Urine Protein Negative (Negative) 10/07/22 05:35 Urine Glucose (UA) Negative (Negative) 10/07/22 05:35 Urine Ketones Negative (Negative) 10/07/22 05:35 Urine Blood Negative (Negative) 10/07/22 05:35 Urine Nitrite Negative (Negative) 10/07/22 05:35 Urine Bilirubin Negative (Negative) 10/07/22 05:35 Urine Urobilinogen <2.0 mg/dL (<2.0) 10/07/22 05:35 Ur Leukocyte Esterase Negative (Negative) 10/07/22 05:35 Urine Opiates Screen Not Detected (NotDetected) 10/07/22 00:37 Ur Oxycodone Screen Not Detected (NotDetected) 10/07/22 00:37 Urine Methadone Screen Not Detected (NotDetected) 10/07/22 00:37 Ur Propoxyphene Screen Not Detected (NotDetected) 10/07/22 00:37 Ur Barbiturates Screen Not Detected (NotDetected) 10/07/22 00:37 U Tricyclic Antidepress Not Detected (NotDetected) 10/07/22 00:37 Ur Phencyclidine Scrn Not Detected (NotDetected) 10/07/22 00:37 Ur Amphetamines Screen Not Detected (NotDetected) 10/07/22 00:37 U Methamphetamines Scrn Not Detected (NotDetected) 10/07/22 00:37 U Benzodiazepines Scrn Not Detected (NotDetected) 10/07/22 00:37 Urine Cocaine Screen Not Detected (NotDetected) 10/07/22 00:37 U Marijuana (THC) Screen Not Detected (NotDetected) 10/07/22 00:37 Coronavirus (PCR) Not Detected (Not Detectd) 10/07/22 02:37 10/07/22 11:53 IDENTIFYING DATA: Patient is a single, retired, 66-year-old female with significant history of bipolar 1 disorder presented to our hospital on 10/07/2022 for acute calista. HPI: Patient presented to the hospital on 10/07/2022, for acute calista. The patient presented to the emergency department voluntarily. The patient presented with pressured speech, disorganized thought process, delusional thoughts, and grandiosity. She has been noted to be nonsensical in her speech and is reportedly off her medications for at least a month. The patient was subsequently admitted onto our psychiatric unit. On evaluation in our psychiatric unit, the patient is unable to provide a clear history of events leading up to this hospitalization, she is presenting as overtly manic with pressured speech, tangentiality, flight of ideas, loose associations, grandiosity, and at times paranoia. The patient does admit that she has been nonadherent with her medication stating that a doctor told her she did not require to any medications anymore. As per review of her medication review from , the patient has been on a regimen of caplyta after recently refusing to continue vraylar. The patient signed voluntarily to the psychiatric unit however states that she is not willing to take any medications at this time. PAST PSYCHIATRIC HISTORY: Patient has been previously diagnosed with schizoaffective disorder, bipolar type. She has trialed numerous medications and was most recently on caplyta. She has also trialed Zyprexa, Latuda, Vraylar, Sunflower, Lamictal, Abilify, Tegretol, Trileptal, Invega, Invega Sustenna, and Abilify maintena. The patient was last hospitalized psychiatrically back in 2014 on our psychiatric unit. She is currently open with [facility]. Patient is unable to answer if she has had previous suicide attempts. PMH: Past Medical History: Hyperlipidemia, Osteoarthritis (OA) Additional Past Medical History / Comment(s): hips -degeneratve joint disease Last Myocardial Infarction Date:: 04/30/21 History of Any Multi-Drug Resistant Organisms: None Reported Past Surgical History: No Surgical Hx Reported Additional Past Surgical History / Comment(s): Cosmetic surgery on her nose 1978. Past Anesthesia/Blood Transfusion Reactions: No Reported Reaction Additional Past Anesthesia/Blood Transfusion Reaction / Comment(s): pt very sensitive to medications Date of Last Stent Placement:: 04/30/21 Past Psychological History: Anxiety, Bipolar Smoking Status: Current every day smoker Past Alcohol Use History: Occasional Past Drug Use History: None Reported ALLERGIES: Citalopram, olanzapine CHEMICAL DEPENDENCY HISTORY: As per chart review, there is a history of alcohol dependence. History of tobacco use. FAMILY PSYCHIATRIC/SUBSTANCE USE HISTORY: Maternal uncle reportedly has bipolar disorder. SOCIAL HISTORY: Patient was born and raised in [place]. She currently lives with her daughter. MENTAL STATUS EXAM: General Appearance: Patient appears to be stated age is alert and cooperative but difficult to direct . Patient appears to have fair hygiene and grooming. Behavior: Patient displays psychomotor agitation. Speech: Patient's speech is pressured, spontaneous, tangential. Mood/Affect: Patient reports their mood is "feeling really good," affect is expansive and euphoric Suicidality/Homicidality: Patient denies any suicidal or homicidal ideation Perceptions: Patient does not answer clearly Though content/process: Flight of ideas, loose associations, grandiosity evident. Memory and concentration: Grossly poor at this time. Judgment and insight: Very poor STRENGTHS/WEAKNESSES: Strength is that the patient is open with [facility] and has social support. Weakness is her poor insight in severity and chronicity of mental illness. INTELLECT: average IMPRESSIONS: Schizoaffective disorder, bipolar type PLAN: -Patient is admitted under voluntary status to [facility] for stabilization of psychiatric symptoms and safety. Patient signed adult voluntary form and medication consent and is placed in patient's chart. Should the patient refuse oral Invega tonight, we will pursue petition and certification. -Medications : Will start patient on Invega 3 mg by mouth at bedtime for schizoaffective disorder. Patient has right refuse medication. -Ativan and Haldol PRN for agitation/aggression -Patient was informed of the risks, benefits and side effects of the medication however is stating that she will refuse medications. -Internal Medicine consult to perform medical evaluation and physical. -NRT - nicotine patch -SW on board for discharge planning. Encourage patient to participate in groups to work on coping skills. 10/07/22 11:53
[2022-10-07] MEDS ORDERED: MELOXICAM 7.5 MG TAB PO PRN (19:59)
--- NOTE | 2022-10-07 20:00 | P.CONS ---
History of Present Illness - Reason for Consult Consult date: 10/07/22 Medical management Requesting physician: Sandoval Cosby - Chief Complaint [place] - History of Present Illness This is a patient who follows with Dr. Jacobsen. Has presented with pressured speech. Cleared from one topic to the other. Difficult to get a history. Talking about [employer] often do not connect. Pressured speech. Appetite is good. Bowels are fine. Denies any pain. No heartburn. Apparently patient has not been taking her medications. Has a diagnosis of schizoaffective disorder bipolar type. Review of systems: GEN.: None EYES: None HEENT: None NECK: None RESPIRATORY: Occasional short of breath CARDIOVASCULAR: As above GASTROINTESTINAL: None GENITOURINARY: None MUSCULOSKELETAL: Joint pains LYMPHATICS: None HEMATOLOGICAL: None PSYCHIATRY: As above NEUROLOGICAL: None Past medical history to include: Hyperlipidemia, osteoarthritis, bipolar disorder, nicotine dependence. CAD with stent Social history: Long-standing smoker .. Lives alone. Social drinker Family history: CAD Physical examination: VITAL SIGNS: 97.8, 92, 20, 1 3888, 96% room air GENERAL: BMI 28.9, sitting, anxious hyper EYES: Pupils equal. Conjunctiva normal. HEENT: External appearance of nose and ears normal, oral cavity grossly normal. NECK: JVD not raised; masses not palpable. HEART: First and second heart sounds are normal; no edema. LUNGS: Respiratory rate normal; diminished breath sounds. ABDOMEN: Soft, nontender, liver spleen not palpable, no masses palpable. PSYCH: Speech and thought is all over the place. MUSCULOSKELETAL:No Clubbing/cyanosis;muscles-grossly intact NEUROLOGICAL: Cranial nerves grossly intact; no facial asymmetry, power and sensation grossly intact. LYMPHATICS: No lymph nodes palpable in the axilla and neck INVESTIGATIONS, reviewed in the clinical context: UA: Unremarkable Urine drug screen: Negative COVID-19: Not detected Assessment and plan: -COPD in a current smoker Albuterol when necessary -Chronic nicotine dependence, cigarette smoker Nicotine patch -CAD with stent to LAD. Resume home medications -Schizoaffective disorder bipolar type. Follow with psychiatry Difficult open history of the patient because of lighting ideas and thought processes and rapid speech.. Continue current medications. Past Medical History Past Medical History: Hyperlipidemia, Osteoarthritis (OA) Additional Past Medical History / Comment(s): hips -degeneratve joint disease Last Myocardial Infarction Date:: 04/30/21 History of Any Multi-Drug Resistant Organisms: None Reported Past Surgical History: No Surgical Hx Reported, Heart Catheterization With Stent Additional Past Surgical History / Comment(s): Cosmetic surgery on her nose 1978., stent placement 04/30/21 Past Anesthesia/Blood Transfusion Reactions: No Reported Reaction Additional Past Anesthesia/Blood Transfusion Reaction / Comm: pt very sensitive to medications Date of Last Stent Placement:: 04/30/21 Past Psychological History: Anxiety, Bipolar Smoking Status: Current every day smoker Past Alcohol Use History: Heavy Additional Past Alcohol Use History / Comment(s): Patient is a smoker of 30 cigarettes per day which she rolls herself. She denies any marijuana use. She denies any street drug use. She states she drinks beer socially 1-2 times per month. Past Drug Use History: None Reported - Past Family History Father Family Medical History: Myocardial Infarction (CA) Additional Family Medical History / Comment(s): CA x 2- Mother Family Medical History: Diabetes Mellitus Additional Family Medical History / Comment(s): Mother is alive at age 79 with history of Diabetes., polio,depression Medications and Allergies Home Medications Medication Instructions Recorded Confirmed Type Atorvastatin [Lipitor] 80 mg PO HS #90 tab 05/02/21 10/07/22 Rx Metoprolol Tartrate [Lopressor] 50 mg PO BID #180 tab 05/02/21 10/07/22 Rx Celecoxib [CeleBREX] 200 mg PO BID 10/07/22 10/07/22 History Meloxicam [Mobic] 15 mg PO DAILY PRN 10/07/22 10/07/22 History Allergies Allergy/AdvReac Type Severity Reaction Status Date / Time citalopram hydrobromide Allergy Unknown Verified 09/29/22 03:53 [From Celexa] olanzapine [From Zyprexa] Allergy rash & Verified 09/29/22 03:53 itching Physical Exam Vitals: Vital Signs Temp Pulse Pulse Resp BP BP Pulse Ox 10/07/22 06:40 97.8 F 92 20 138/88 96 10/07/22 05:55 97.8 F 92 20 138/88 96 10/07/22 05:26 98 F 77 18 159/71 97 10/07/22 00:17 98.2 F 97 18 176/90 100 Intake and Output 10/07/22 10/07/22 10/07/22 06:59 14:59 22:59 Other: Weight 83.7 kg
[2022-10-07] MEDS ORDERED: PALIPERIDONE 3 MG TAB.ER.24 PO SCH (21:00)
[2022-10-07] MEDS: METOPROLOL TARTRATE 50 MG TAB PO SCH (21:19)
[2022-10-07] MEDS: ATORVASTATIN 80 MG TAB PO SCH (21:19)
[2022-10-08 08:14] LABS: Basophils # (A) 0.1 k/uL (0-0.2); Basophils % (A) 1 %; Eosinophils # (A) 0.1 k/uL (0-0.7); Eosinophils % (A) 1 %; HCT 48.2 % (34.0-46.0); HGB 16.2 gm/dL (11.4-16.0); Lymphocytes # (A) 2.5 k/uL (1.0-4.8); Lymphocytes % (A) 19 %; MCH 30.9 pg (25.0-35.0); MCHC 33.5 g/dL (31.0-37.0); MCV 92.1 fL (80.0-100.0); Mean Platelet Volume 8.5; Monocytes # (A) 0.6 k/uL (0-1.0); Monocytes % (A) 5 %; Neutrophils # (A) 9.2 k/uL (1.3-7.7); Neutrophils % (A) 73 %; Platelet Count 165 k/uL (150-450); RBC 5.23 m/uL (3.80-5.40); RDW 12.4 % (11.5-15.5); WBC 12.6 k/uL (3.8-10.6)
[2022-10-08 08:48] LABS: ALT 32 U/L (4-34); AST 34 U/L (14-36); African American GFR (CKD) >90 (>60 ml/min/1.73 sqM); Albumin 4.4 g/dL (3.5-5.0); Alkaline Phosphatase 101 U/L (38-126); Anion Gap 10 mmol/L; Bilirubin, Delta 0.3 mg/dL (0.0-0.2); Bilirubin,Unconjugated 0.6 mg/dL (0.0-1.1); Blood Urea Nitrogen 16 mg/dL (7-17); Calcium 9.4 mg/dL (8.4-10.2); Carbon Dioxide 29 mmol/L (22-30); Chloride 103 mmol/L (98-107); Glucose 110 mg/dL (74-99); Non-African American GFR(CKD) 85 (>60 ml/min/1.73 sqM); Potassium 4.3 mmol/L (3.5-5.1); Sodium 142 mmol/L (137-145); Total Bilirubin 0.9 mg/dL (0.2-1.3); Total Protein 7.5 g/dL (6.3-8.2)
[2022-10-08] MEDS: METOPROLOL TARTRATE 50 MG TAB PO SCH ×2 (08:49→21:30)
[2022-10-08] MEDS: ASPIRIN 81 MG PO SCH (08:49)
[2022-10-08] MEDS: NICOTINE 14MG/24HR PATCH TRANSDERM SCH (08:50)
--- NOTE | 2022-10-08 13:33 | P.PN ---
Progress Note - Text Progress Note Date: 10/08/22 Interval History: Patient was seen wandering the hallways and was directable and agreeable to speak with report writer in the office. She continues to display overt symptoms of calista. She is very tangential in her speech. She states, "Dr Grijalva, like PTSD, P for Powerful, T for the Cross, S for Something, D for Dangerous!" She has been adherent with her medication is not reporting any significant side effects at this time. She is vehemently denying any suicidal or homicidal ideation, intention, and/or plan. She is not reporting any auditory or visual hallucinations. She continues to have limited insight into her condition however is agreeable to taking the medications. Mental Status Exam: General Appearance: Patient appears to be stated age is alert, at times difficult to directable, but is cooperative. Behavior: Patient displays elevated psychomotor activity. Speech: Patient's speech is fluent, pressured, and at times loud in volume. Tangential speech pattern. Mood/Affect: Mood is "feeling really good," affect is congruent and expansive. Euphoric. Suicidality/Homicidality: Patient vehemently denies any suicidal or homicidal ideation, intention, and/or plan. Perceptions: Patient denies any visual hallucinations and denies any auditory hallucinations Though content/process: Flight of ideas and loose associations are evident. Memory and concentration: Grossly poor at this time Judgment and insight: Poor Vital Signs Temp 97 F L 10/08/22 06:40 Pulse 72 10/08/22 06:40 Resp 14 10/08/22 06:40 BP 160/79 10/08/22 06:40 Pulse Ox 96 10/07/22 06:40 FiO2 Laboratory Results - Last 24 Hours 10/08/22 10/08/22 07:33 07:33 WBC 12.6 H RBC 5.23 Hgb 16.2 H Hct 48.2 H MCV 92.1 MCH 30.9 MCHC 33.5 RDW 12.4 Plt Count 165 MPV 8.5 Neutrophils % 73 Lymphocytes % 19 Monocytes % 5 Eosinophils % 1 Basophils % 1 Neutrophils # 9.2 H Lymphocytes # 2.5 Monocytes # 0.6 Eosinophils # 0.1 Basophils # 0.1 Sodium 142 Potassium 4.3 Chloride 103 Carbon Dioxide 29 Anion Gap 10 BUN 16 Creatinine 0.75 Est GFR (CKD-EPI)AfAm >90 Est GFR (CKD-EPI)NonAf 85 Glucose 110 H Calcium 9.4 Total Bilirubin 0.9 Conjugated Bilirubin 0.0 Unconjugated Bilirubin 0.6 Delta Bilirubin 0.3 H AST 34 ALT 32 Alkaline Phosphatase 101 Total Protein 7.5 Albumin 4.4 TSH 1.390 Assessment Schizoaffective disorder, bipolar type Plan: -Patient continues to meet criteria for inpatient psychiatric admission for symptom stabilization and safety. Patient has signed adult voluntary form and medication consent and was placed in patient's chart. -Medications: We will increase Invega to 6 mg by mouth at bedtime for schizoaffective disorder with plans to transition to a long-acting injectable. -When necessary Ativan and Haldol for agitation/aggression. -NRT - nicotine patch -SW on board for discharge planning. Encouraged the patient to participate in milieu.
[2022-10-08 17:18] LABS: Chol/HDL Ratio 4.54 Ratio; LDL Cholesterol,Calculated 123.7 mg/dL (0.0-131.0)
[2022-10-08] MEDS ORDERED: PALIPERIDONE 6 MG TAB.ER.24 PO SCH (21:00)
[2022-10-08] MEDS: carBAMazepine 100 MG TAB.ER.12H PO SCH (21:30)
[2022-10-08] MEDS: ATORVASTATIN 80 MG TAB PO SCH (21:30)
[2022-10-09] MEDS: NICOTINE 14MG/24HR PATCH TRANSDERM SCH (09:56)
[2022-10-09] MEDS: ASPIRIN 81 MG PO SCH (09:56)
[2022-10-09] MEDS: METOPROLOL TARTRATE 50 MG TAB PO SCH ×2 (09:56→21:28)
[2022-10-09] MEDS: carBAMazepine 100 MG TAB.ER.12H PO SCH (10:12)
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
[2022-10-09] MEDS: ATORVASTATIN 80 MG TAB PO SCH (21:28)
[2022-10-09] MEDS: PALIPERIDONE 3 MG TAB.ER.24 PO SCH (21:28)
[2022-10-10] MEDS: METOPROLOL TARTRATE 50 MG TAB PO SCH ×2 (07:41→21:26)
[2022-10-10] MEDS: NICOTINE 14MG/24HR PATCH TRANSDERM SCH (07:41)
[2022-10-10] MEDS: carBAMazepine 100 MG TAB.ER.12H PO SCH (07:42)
[2022-10-10] MEDS: ASPIRIN 81 MG PO SCH (07:42)
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
[2022-10-10] MEDS: PALIPERIDONE 3 MG TAB.ER.24 PO SCH (21:22)
[2022-10-10] MEDS: ATORVASTATIN 80 MG TAB PO SCH (21:24)
[2022-10-10] MEDS: NICOTINE GUM (POLACRILEX) 2 MG GUM BUCCAL PRN (21:32)
[2022-10-11] MEDS: carBAMazepine 100 MG TAB.ER.12H PO SCH (09:38)
[2022-10-11] MEDS: METOPROLOL TARTRATE 50 MG TAB PO SCH ×2 (09:38→21:04)
[2022-10-11] MEDS: NICOTINE 14MG/24HR PATCH TRANSDERM SCH (09:38)
[2022-10-11] MEDS: ASPIRIN 81 MG PO SCH (09:38)
[2022-10-11] MEDS: NICOTINE GUM (POLACRILEX) 2 MG GUM BUCCAL PRN (12:40)
--- NOTE | 2022-10-11 17:25 | P.PN ---
Progress Note - Text Progress Note Date: 10/11/22 Interval history: Patient was seen resting in her room and was directable and agreeable to speak with typewriter repairer. She reports good mood, appears elevated, talkative, thoughts tangential and rambling about her daughter. At this time patient denies any suicidal or homicidal ideation, intent or plan. Denies any auditory or visual hallucinations. Patient denies any side effects from the medications and has been compliant with meds. Mental status exam: General Appearance: Patient appears to be stated age is alert, directable, and cooperative. Behavior: No agitated behavior. Patient is calm and directable. Speech: Patient's speech is rapid but non-pressured.. Mood/Affect: Mood is "good"/elevated, affect is bright, animated. Suicidality/Homicidality: Patient denies having any suicidal or homicidal ideation intent or plan. Perceptions: Patient denies any auditory or visual hallucinations. Though content/process: There is no evidence of any delusional thought content and thought process is tangential/rambling. Memory and concentration: AOX3, grossly intact for the purposes of this session Judgment and insight: improving mildly Assessment/Plan: Continue with current diagnosis. Patient continues to meet criteria for inpatient psychiatric admission for symptom stabilization and safety. Increase Invega to 6 mg BID starting tomorrow. Monitor for medication compliance and for any psychotropic medication side effects. Will continue to monitor ongoing response to treatment. Encouraged participation in milieu.
[2022-10-11] MEDS: PALIPERIDONE 3 MG TAB.ER.24 PO SCH (21:04)
[2022-10-11] MEDS: ATORVASTATIN 80 MG TAB PO SCH (21:04)
[2022-10-12] MEDS ORDERED: PALIPERIDONE 6 MG TAB.ER.24 PO SCH (06:00)
[2022-10-12] MEDS: ASPIRIN 81 MG PO SCH (09:55)
[2022-10-12] MEDS: METOPROLOL TARTRATE 50 MG TAB PO SCH ×2 (09:55→21:06)
[2022-10-12] MEDS: NICOTINE 14MG/24HR PATCH TRANSDERM SCH (09:55)
[2022-10-12] MEDS: PALIPERIDONE 6 MG TAB.ER.24 PO SCH ×2 (09:55→21:06)
[2022-10-12] MEDS: carBAMazepine 100 MG TAB.ER.12H PO SCH (10:32)
[2022-10-12] MEDS ORDERED: BENZTROPINE MESYLATE 0.5 MG TAB PO ONE (11:15)
--- NOTE | 2022-10-12 18:19 | P.PN ---
Progress Note - Text Progress Note Date: 10/12/22 Interval history: Patient was seen sleeping in her room and is only passively engaged in assessment on awaking. She is disheveled with dirty feet with soles blackened with dirt. Her thoughts are more logical and organized today after increasing her Invega for today. She reports feeling sleepy today and reports she threw up earlier in the day. At this time patient denies any suicidal or homicidal ideation, intent or plan. Denies any auditory or visual hallucinations. Patient denies any side effects from the medications, except for feeling sleepy this morning, and has been compliant with meds. Mental status exam: General Appearance: Patient appears to be stated age, is sleepy but awakens easily, feet dirty with soles blackened with dirt. Behavior: No agitated behavior. Patient is laying in bed asleep. Speech: Patient's speech is rapid but non-pressured.. Mood/Affect: Mood is "fine", affect is sleepy. Suicidality/Homicidality: Patient denies having any suicidal or homicidal ideation intent or plan. Perceptions: Patient denies any auditory or visual hallucinations. Though content/process: There is no evidence of any delusional thought content and thought process is more linear/coherent. Memory and concentration: AOX3, grossly intact for the purposes of this session Judgment and insight: improving mildly Assessment/Plan: Continue with current diagnosis. Patient continues to meet criteria for inpatient psychiatric admission for symptom stabilization and safety. Continue Invega 6 mg BID for calista/psychosis. Monitor response. Start Cogentin 0.5 mg BID PRN for EPS prophylaxis. Monitor for medication compliance and for any psychotropic medication side effects. Will continue to monitor ongoing response to treatment. Encouraged participation in milieu.
[2022-10-12] MEDS: ATORVASTATIN 80 MG TAB PO SCH (21:06)
[2022-10-12] MEDS: BENZTROPINE MESYLATE 0.5 MG TAB PO SCH (21:06)
[2022-10-12] MEDS: NICOTINE GUM (POLACRILEX) 2 MG GUM BUCCAL PRN (21:22)
[2022-10-13 06:39] VITALS: RESP 18
[2022-10-13] MEDS: NICOTINE 14MG/24HR PATCH TRANSDERM SCH (09:24)
[2022-10-13] MEDS: METOPROLOL TARTRATE 50 MG TAB PO SCH ×2 (09:25→21:29)
[2022-10-13] MEDS: PALIPERIDONE 6 MG TAB.ER.24 PO SCH ×2 (09:25→21:30)
[2022-10-13] MEDS: ASPIRIN 81 MG PO SCH (09:25)
[2022-10-13] MEDS: BENZTROPINE MESYLATE 0.5 MG TAB PO SCH ×2 (09:25→21:29)
[2022-10-13] MEDS: carBAMazepine 100 MG TAB.ER.12H PO SCH (09:25)
--- NOTE | 2022-10-13 11:32 | P.PN ---
Progress Note - Text Progress Note Date: 10/13/22 Interval History: Patient was seen wandering the hallways and was directable and agreeable to speak with internal communications writer in the office. Currently, the patient is not reporting any suicidal or homicidal ideation, intention, and/or plan. She is not reporting any auditory or visual hallucinations. She denies any paranoia or other delusions at this time. She reports that she is sleeping and eating well. She denies any side effects of her medications. She reports no medical issues or concerns. Mental Status Exam: General Appearance: Patient appears to be stated age is alert, is directable and cooperative. Behavior: Patient displays normal psychomotor activity today. Eye contact is a ppropriate. Normal psychomotor activity today. Speech: Patient's speech is fluent, nonpressured, and appears to have normal volume today. Less tangential than before. Mood/Affect: Mood is "I'm feeling better," affect is bright and euthymic. Suicidality/Homicidality: Patient vehemently denies any suicidal or homicidal ideation, intention, and/or plan. Perceptions: Patient denies any auditory or visual hallucinations. Though content/process: Linear and logical in short conversation Memory and concentration: Improving Judgment and insight: Mildly improving. Vital Signs Temp 96.9 F L 10/13/22 06:37 Pulse 76 10/13/22 06:37 Resp 18 10/13/22 06:37 BP 144/89 10/13/22 06:37 Pulse Ox 96 10/13/22 06:37 FiO2 Laboratory Results WBC 12.6 k/uL (3.8-10.6) H 10/08/22 07:33 RBC 5.23 m/uL (3.80-5.40) 10/08/22 07:33 Hgb 16.2 gm/dL (11.4-16.0) H 10/08/22 07:33 Hct 48.2 % (34.0-46.0) H 10/08/22 07:33 MCV 92.1 fL (80.0-100.0) 10/08/22 07:33 MCH 30.9 pg (25.0-35.0) 10/08/22 07:33 MCHC 33.5 g/dL (31.0-37.0) 10/08/22 07:33 RDW 12.4 % (11.5-15.5) 10/08/22 07:33 Plt Count 165 k/uL (150-450) 10/08/22 07:33 MPV 8.5 10/08/22 07:33 Neutrophils % 73 % 10/08/22 07:33 Lymphocytes % 19 % 10/08/22 07:33 Monocytes % 5 % 10/08/22 07:33 Eosinophils % 1 % 10/08/22 07:33 Basophils % 1 % 10/08/22 07:33 Neutrophils # 9.2 k/uL (1.3-7.7) H 10/08/22 07:33 Lymphocytes # 2.5 k/uL (1.0-4.8) 10/08/22 07:33 Monocytes # 0.6 k/uL (0-1.0) 10/08/22 07:33 Eosinophils # 0.1 k/uL (0-0.7) 10/08/22 07:33 Basophils # 0.1 k/uL (0-0.2) 10/08/22 07:33 Sodium 142 mmol/L (137-145) 10/08/22 07:33 Potassium 4.3 mmol/L (3.5-5.1) 10/08/22 07:33 Chloride 103 mmol/L (98-107) 10/08/22 07:33 Carbon Dioxide 29 mmol/L (22-30) 10/08/22 07:33 Anion Gap 10 mmol/L 10/08/22 07:33 BUN 16 mg/dL (7-17) 10/08/22 07:33 Creatinine 0.75 mg/dL (0.52-1.04) 10/08/22 07:33 Est GFR (CKD-EPI)AfAm >90 (>60 ml/min/1.73 sqM) 10/08/22 07:33 Est GFR (CKD-EPI)NonAf 85 (>60 ml/min/1.73 sqM) 10/08/22 07:33 Glucose 110 mg/dL (74-99) H 10/08/22 07:[address] Glu mg/dL 134 mg/dL 10/08/22 07:33 Hemoglobin A1c 6.3 % (<=6.0) H 10/08/22 07:33 Calcium 9.4 mg/dL (8.4-10.2) 10/08/22 07:33 Total Bilirubin 0.9 mg/dL (0.2-1.3) 10/08/22 07:33 Conjugated Bilirubin 0.0 mg/dL (0.0-0.3) 10/08/22 07:33 Unconjugated Bilirubin 0.6 mg/dL (0.0-1.1) 10/08/22 07:33 Delta Bilirubin 0.3 mg/dL (0.0-0.2) H 10/08/22 07:33 AST 34 U/L (14-36) 10/08/22 07:33 ALT 32 U/L (4-34) 10/08/22 07:33 Alkaline Phosphatase 101 U/L (38-126) 10/08/22 07:33 Total Protein 7.5 g/dL (6.3-8.2) 10/08/22 07:33 Albumin 4.4 g/dL (3.5-5.0) 10/08/22 07:33 Triglycerides 243.00 mg/dL (0.00-149.00) H 10/08/22 07:33 Cholesterol 221.00 mg/dL (0.00-200.00) H 10/08/22 07:33 LDL Cholesterol, Calc 123.7 mg/dL (0.0-131.0) 10/08/22 07:33 VLDL Cholesterol, Calc 48.60 mg/dL (5.00-40.00) H 10/08/22 07:33 HDL Cholesterol 48.70 mg/dL (40.00-60.00) 10/08/22 07:33 Cholesterol/HDL Ratio 4.54 Ratio 10/08/22 07:33 TSH 1.390 mIU/L (0.465-4.680) 10/08/22 07:33 Urine Color Light Yellow 10/07/22 05:35 Urine Appearance Clear (Clear) 10/07/22 05:35 Urine pH 6.0 (5.0-8.0) 10/07/22 05:35 Ur Specific [place] 1.010 (1.001-1.035) 10/07/22 05:35 Urine Protein Negative (Negative) 10/07/22 05:35 Urine Glucose (UA) Negative (Negative) 10/07/22 05:35 Urine Ketones Negative (Negative) 10/07/22 05:35 Urine Blood Negative (Negative) 10/07/22 05:35 Urine Nitrite Negative (Negative) 10/07/22 05:35 Urine Bilirubin Negative (Negative) 10/07/22 05:35 Urine Urobilinogen <2.0 mg/dL (<2.0) 10/07/22 05:35 Ur Leukocyte Esterase Negative (Negative) 10/07/22 05:35 Urine Opiates Screen Not Detected (NotDetected) 10/07/22 00:37 Ur Oxycodone Screen Not Detected (NotDetected) 10/07/22 00:37 Urine Methadone Screen Not Detected (NotDetected) 10/07/22 00:37 Ur Propoxyphene Screen Not Detected (NotDetected) 10/07/22 00:37 Ur Barbiturates Screen Not Detected (NotDetected) 10/07/22 00:37 U Tricyclic Antidepress Not Detected (NotDetected) 10/07/22 00:37 Ur Phencyclidine Scrn Not Detected (NotDetected) 10/07/22 00:37 Ur Amphetamines Screen Not Detected (NotDetected) 10/07/22 00:37 U Methamphetamines Scrn Not Detected (NotDetected) 10/07/22 00:37 U Benzodiazepines Scrn Not Detected (NotDetected) 10/07/22 00:37 Urine Cocaine Screen Not Detected (NotDetected) 10/07/22 00:37 U Marijuana (THC) Screen Not Detected (NotDetected) 10/07/22 00:37 Coronavirus (PCR) Not Detected (Not Detectd) 10/07/22 02:37 Assessment Schizoaffective disorder, bipolar type Plan: -Patient continues to meet criteria for inpatient psychiatric admission for symptom stabilization and safety. Patient has signed adult voluntary form and me dication consent and was placed in patient's chart. Anticipate discharge tomorrow. -Medications: Continue invega 6 mg q12 Hours for schizoaffective disorder Continue Tegretol 100 mg in the morning and 200 mg at bedtime for mood stabilization due to patient's concerns for sedation in the morning.. -When necessary Ativan and Haldol for agitation/aggression. -NRT - nicotine patch -SW on board for discharge planning. Encouraged the patient to participate in milieu.
[2022-10-13] MEDS: NICOTINE GUM (POLACRILEX) 2 MG GUM BUCCAL PRN (21:30)
[2022-10-13] MEDS: ATORVASTATIN 80 MG TAB PO SCH (21:30)
[2022-10-14 06:21] VITALS: BP 121/68; PULSE 80; TEMP 98.6
[2022-10-14] MEDS: NICOTINE 14MG/24HR PATCH TRANSDERM SCH (07:45)
[2022-10-14] MEDS: METOPROLOL TARTRATE 50 MG TAB PO SCH (07:45)
[2022-10-14] MEDS: ASPIRIN 81 MG PO SCH (07:45)
[2022-10-14] MEDS: BENZTROPINE MESYLATE 0.5 MG TAB PO SCH (07:45)
[2022-10-14] MEDS: PALIPERIDONE 6 MG TAB.ER.24 PO SCH (07:45)
[2022-10-14] MEDS: carBAMazepine 100 MG TAB.ER.12H PO SCH (08:47)
[2022-10-14] MEDS: NICOTINE GUM (POLACRILEX) 2 MG GUM BUCCAL PRN (08:49)
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
== END 2022-10-14 11:45 | disposition home or self-care (01) | DRG 885 ==
LOC: EC 00:13 → 3MHU 04:34
PROVIDERS: ADMIT Psychiatry & Neurology Psychiatry; ATTEND Psychiatry & Neurology Psychiatry
DX: F25.0 Schizoaffective disorder, bipolar type (principal); E78.5 Hyperlipidemia, unspecified; F10.21 Alcohol dependence, in remission; F17.210 Nicotine dependence, cigarettes, uncomplicated; F43.10 Post-traumatic stress disorder, unspecified; G44.209 Tension-type headache, unspecified, not intractable; I25.10 Atherosclerotic heart disease of native coronary artery without angina pectoris; J44.9 Chronic obstructive pulmonary disease, unspecified; Z20.822 Contact with and (suspected) exposure to COVID-19; I25.2 Old myocardial infarction; Z79.02 Long term (current) use of antithrombotics/antiplatelets; Z79.1 Long term (current) use of non-steroidal anti-inflammatories (NSAID); Z79.82 Long term (current) use of aspirin; Z79.899 Other long term (current) drug therapy; Z81.8 Family history of other mental and behavioral disorders; Z82.49 Family history of ischemic heart disease and other diseases of the circulatory system; Z83.3 Family history of diabetes mellitus; Z91.148 Patient's other noncompliance with medication regimen for other reason; Z95.5 Presence of coronary angioplasty implant and graft; Z88.8 Allergy status to other drugs, medicaments and biological substances
CPT/HCPCS: 80053; 80061; 80306; 81003; 82075; 82248; 83036; 84443; 85025; 87635; 99285

== ENCOUNTER → 2022-12-01 | Outpatient (CLI) | payer MEDICARE, OTHER ==
[2022-12-01 14:27] LABS: Appearance,Urine Clear (Clear); Bilirubin,Urine Negative (Negative); Blood,Urine Negative (Negative); Color,Urine Yellow; Glucose,Urine (UA) Negative (Negative); Ketones,Urine Negative (Negative); Leukocyte Esterase,Urine Negative (Negative); Nitrite,Urine Negative (Negative); PH, Urine 6.5 (5.0-8.0); Protein,Urine Negative (Negative); Specific Gravity,Urine 1.016 (1.001-1.035); Urobilinogen,Urine <2.0 mg/dL (<2.0)
[2022-12-01 14:45] LABS: INR 0.9 (<1.2); Partial Thromboplastin Time 23.6 sec (22.0-30.0)
[2022-12-01 21:27] LABS: ALT 64 U/L (8-44); AST 46 U/L (13-35); Albumin 4.4 d/dL (3.8-4.9); Albumin/Globulin Ratio 1.69 Ratio (1.60-3.17); Alkaline Phosphatase 107 U/L (41-126); BUN/Creat Ratio 18.17 Ratio (12.00-20.00); Blood Urea Nitrogen 10.9 mg/dL (9.0-27.0); Calcium 9.6 mg/dL (8.7-10.3); Carbon Dioxide 25.1 mmol/L (21.6-31.8); Chloride 102 mmol/L (96-109); Globulin 2.6 d/dL (1.6-3.3); Glucose 118 mg/dL (70-110); Potassium 4.6 mmol/L (3.5-5.5); Sodium 139 mmol/L (135-145); Total Bilirubin 0.4 mg/dL (0.3-1.2)
[2022-12-01 22:28] LABS: HCT 47.1 % (37.2-46.3); MCH 29.8 pg (27.0-32.0); MCHC 31.8 d/dL (32.0-37.0); MCV 93.5 FL (80.0-97.0); Mean Platelet Volume 11.5 FL (9.5-12.2); NRBC Per 100 WBC 0 X 10*3/uL (0.00-0.01); Platelet Count 203 X 10*3/uL (140-440); RBC 5.04 X 10*6/uL (4.10-5.20); RDW 12.8 % (11.5-14.5); WBC 10.52 X 10*3/uL (4.50-10.00)
== END | disposition home or self-care (01) ==
LOC: LABPAT 12:24
PROVIDERS: ATTEND Orthopaedic Surgery
DX: Z01.812 Encounter for preprocedural laboratory examination (principal); M16.12 Unilateral primary osteoarthritis, left hip; I49.8 Other specified cardiac arrhythmias; I51.7 Cardiomegaly; I27.9 Pulmonary heart disease, unspecified; R94.31 Abnormal electrocardiogram [ECG] [EKG]
CPT/HCPCS: 80053; 81003; 85027; 85610; 85730; 87070; 93005

== ENCOUNTER 2023-01-29 12:02 | Emergency (ER) | payer MEDICARE, OTHER ==
--- NOTE | 2023-01-29 12:10 | ED ---
General Adult HPI - General Stated complaint: muscle spasms Time Seen by Provider: 01/29/23 12:10 Source: patient, RN notes reviewed, old records reviewed Mode of arrival: ambulatory Limitations: no limitations - History of Present Illness Initial comments: 67-year-old female presents emergency from chief complaint of back spasms, medication refill. She states that she occasionally has back spasm states that she is out of her medications that she takes for. She states she was seen here in July and received muscle relaxers and pain meds for this. Patient states that she just wants a medication refill. - Related Data Home Medications Medication Instructions Recorded Confirmed Celecoxib [CeleBREX] 200 mg PO BID 10/07/22 11/18/22 Acetaminophen/Caffeine [Excedrin 1 each PO DIRECTED PRN 11/18/22 11/18/22 Tension Headache] Amoxicillin/Potassium Clav 1 each PO DIRECTED PRN 11/18/22 11/18/22 [Amox-Clav 875-125 mg Tablet] Cyclobenzaprine [Flexeril] 10 mg PO DIRECTED PRN 11/18/22 11/18/22 Previous Rx's Medication Instructions Recorded Atorvastatin [Lipitor] 80 mg PO HS #90 tab 05/02/21 Metoprolol Tartrate [Lopressor] 50 mg PO BID #180 tab 05/02/21 Aspirin 81 mg PO DAILY 30 Days #30 tab 10/14/22 Cyclobenzaprine [Flexeril] 10 mg PO TID PRN #15 tab 01/29/23 Ibuprofen [Motrin] 600 mg PO Q8HR PRN #20 tab 01/29/23 Allergies Allergy/AdvReac Type Severity Reaction Status Date / Time citalopram hydrobromide Allergy Unknown Verified 01/29/23 12:16 [From Celexa] olanzapine [From Zyprexa] Allergy rash & Verified 01/29/23 12:16 itching Review of Systems ROS Statement: Those systems with pertinent positive or pertinent negative responses have been documented in the HPI. ROS Other: All systems not noted in ROS Statement are negative. Past Medical History Past Medical History: Hyperlipidemia, Osteoarthritis (OA) Additional Past Medical History / Comment(s): hips -degeneratve joint disease Last Myocardial Infarction Date:: 04/30/21 History of Any Multi-Drug Resistant Organisms: None Reported Past Surgical History: No Surgical Hx Reported, Heart Catheterization With Stent Additional Past Surgical History / Comment(s): Cosmetic surgery on her nose 1978., stent placement 04/30/21 Past Anesthesia/Blood Transfusion Reactions: No Reported Reaction Additional Past Anesthesia/Blood Transfusion Reaction / Comment(s): pt very sensitive to medications Date of Last Stent Placement:: 04/30/21 Past Psychological History: Anxiety, Bipolar Past Alcohol Use History: Heavy - Past Family History Father Family Medical History: Myocardial Infarction ([place]) Additional Family Medical History / Comment(s): [place] x 2- Mother Family Medical History: Diabetes Mellitus Additional Family Medical History / Comment(s): Mother is alive at age 79 with history of Diabetes., polio,depression General Exam - General Exam Comments Initial Comments: Visual Physical Exam Vital signs reviewed General: Well-appearing, nontoxic, no acute distress. Head: Normocephalic, atraumatic Eyes: PERRLA, EOMI ENT: Airway patent Chest: Nonlabored breathing Skin: No visual rash, normal skin tone Neuro: Alert and oriented 3 Musculoskeletal: No gross abnormalities Limitations: no limitations General appearance: alert, in no apparent distress Head exam: Present: atraumatic, normocephalic, normal inspection ENT exam: Present: normal exam, normal oropharynx, mucous membranes moist Neck exam: Present: normal inspection, full ROM. Absent: tenderness, meningismus, lymphadenopathy Respiratory exam: Present: normal lung sounds bilaterally. Absent: respiratory distress, wheezes, rales, rhonchi, stridor Cardiovascular Exam: Present: regular rate, normal rhythm, normal heart sounds. Absent: systolic murmur, diastolic murmur, rubs, gallop, clicks Back exam: Present: full ROM, tenderness, muscle spasm, paraspinal tenderness. Absent: vertebral tenderness Neurological exam: Present: alert, oriented X3 Course Vital Signs 01/29/23 01/29/23 12:14 14:37 Temperature 98 F 98.1 F Pulse Rate 88 68 Respiratory 16 18 Rate Blood Pressure 119/83 120/88 O2 Sat by Pulse 96 96 Oximetry Medical Decision Making - Medical Decision Making I completed the quick note portion of this chart signed Akil Glass PA-C Was pt. sent in by a medical professional or institution (, [facility], [facility], urgent care, hospital, or halfway...) When possible be specific @ -No Did you speak to anyone other than the patient for history (EMS, parent, family, police, friend...)? What history was obtained from this source @ -No Did you review nursing and triage notes (agree or disagree)? Why? @ -I reviewed and agree with nursing and triage notes Were old charts reviewed (outside hosp., previous admission, EMS record, old EKG, old radiological studies, urgent care reports/EKG's, halfway records)? Report findings @ -No old charts were reviewed Differential Diagnosis (chest pain, altered mental status, abdominal pain women, abdominal pain men, vaginal bleeding, weakness, fever, dyspnea, syncope, headache, dizziness, GI bleed, back pain, seizure, CVA, palpatations, mental health, musculoskeletal)? @ -Differential Back Pain: Strain, zoster, cauda equina syndrome, epidural abscess, vertebral osteomyelitis, discitis, fracture, subluxation, disc herniation, DJD, spinal stenosis, dissection, AAA, pancreatitis, peptic ulcer disease, pyelonephritis, kidney stone, this is not meant to be an all-inclusive list.] EKG interpreted by me (3pts min.). @ -none X-rays interpreted by me (1pt min.). @ -None done CT interpreted by me (1pt min.). @ -None done U/S interpreted by me (1pt. min.). @ -None done What testing was considered but not performed or refused? (CT, X-rays, U/S, labs)? Why? @ -[recommended imaging patient declined including x-ray CT What meds were considered but not given or refused? Why? @ -None Did you discuss the management of the patient with other professionals (professionals i.e. , PA, [facility]LINE MERCH[facility], lab, RT, psych nurse, social media editor, timber treatment plant operator, teacher, hearing officer, transplant case manager)? Give summary @ -No Was smoking cessation discussed for >3mins.? @ -No Was critical care preformed (if so, how long)? @ -No Were there social determinants of health that impacted care today? How? (Homelessness, low income, unemployed, alcoholism, drug addiction, transportation, low edu. Level, literacy, decrease access to med. care, half-way, rehab)? @ -No Was there de-escalation of care discussed even if they declined (Discuss DNR or withdrawal of care, Hospice)? DNR status @ -No What co-morbidities impacted this encounter? (DM, HTN, Smoking, COPD, CAD, Cancer, CVA, ARF, Chemo, Hep., AIDS, mental health diagnosis, sleep apnea, morbid obesity)? @ -None Was patient admitted / discharged? Hospital course, mention meds given and route, prescriptions, significant lab abnormalities, going to OR and other pertinent info. @ -discharged patient presented for back pain, muscle spasms. Patient has no red flag symptoms.patient will be discharged in stable condition return parameters were discussed.e Undiagnosed new problem with uncertain prognosis? @ -No Drug Therapy requiring intensive monitoring for toxicity (Heparin, Nitro, Insulin, Cardizem)? @ -no Were any procedures done? @ -No Diagnosis/symptom? @ -back pain Acute, or Chronic, or Acute on Chronic? @ -[acute Uncomplicated (without systemic symptoms) or Complicated (systemic symptoms)? @ -uncomplicated Side effects of treatment? @ -No Exacerbation, Progression, or Severe Exacerbation? @ -No Poses a threat to life or bodily function? How? (Chest pain, USA, IA, pneumonia, PE, COPD, DKA, ARF, appy, cholecystitis, CVA, Diverticulitis, Homicidal, Suicidal, threat to staff... and all critical care pts) @ -No Disposition Clinical Impression: Back pain Disposition: HOME SELF-CARE Condition: Stable Instructions (If sedation given, give patient instructions): Back Pain (ED) Additional Instructions: Please return to the Emergency Department if symptoms worsen or any other concerns. Prescriptions: Cyclobenzaprine [Flexeril] 10 mg PO TID PRN #15 tab PRN Reason: Muscle Spasm Ibuprofen [Motrin] 600 mg PO Q8HR PRN #20 tab PRN Reason: Pain Is patient prescribed a controlled substance at d/c from ED?: No Referrals: Oziel Jacobsen DO [Primary Care Provider] - 1-2 days Time of Disposition: 14:19
[2023-01-29] MEDS ORDERED: ORPHENADRINE 30 MG/ML 2 ML VIAL IM STA (14:17)
[2023-01-29] MEDS ORDERED: KETOROLAC 15 MG/ML 1 ML VIAL IM STA (14:17)
[2023-01-29 14:57] VITALS: BP 120/88; PULSE 68; RESP 18; TEMP 98.1
== END 2023-01-29 14:39 | disposition home or self-care (01) ==
LOC: EC 12:02
DX: M62.830 Muscle spasm of back (principal); M19.90 Unspecified osteoarthritis, unspecified site; Z79.899 Other long term (current) drug therapy; Z88.8 Allergy status to other drugs, medicaments and biological substances
CPT/HCPCS: 99283; 96372 ×2; J2360; J1885

== ENCOUNTER → 2023-03-10 | Outpatient (CLI) | payer MEDICARE, OTHER ==
[2023-03-10 12:04] LABS: Appearance,Urine Cloudy (Clear); Bilirubin,Urine Negative (Negative); Blood,Urine Negative (Negative); Color,Urine Yellow; Glucose,Urine (UA) Negative (Negative); Hyaline Casts,Urine 1 /lpf (0-2); Ketones,Urine Negative (Negative); Leukocyte Esterase,Urine Negative (Negative); Mucus,Urine Occasional /hpf; Nitrite,Urine Negative (Negative); PH, Urine 6.5 (5.0-8.0); Protein,Urine Negative (Negative); RBC,Urine 1 /hpf (0-5); Specific Gravity,Urine 1.021 (1.001-1.035); Squamous Epithelial Cell,Urine 18 /hpf (0-4); WBC,Urine 1 /hpf (0-5)
[2023-03-10 12:11] LABS: Partial Thromboplastin Time 24.1 sec (22.0-30.0)
[2023-03-10 15:30] LABS: Basophils # (A) 0.06 X 10*3/uL (0.00-0.10); Basophils % (A) 0.7 %; Eosinophils # (A) 0.15 X 10*3/uL (0.04-0.35); Eosinophils % (A) 1.7 %; HCT 45.6 % (37.2-46.3); Lymphocytes # (A) 2.46 X 10*3/uL (0.90-5.00); Lymphocytes % (A) 27.2 %; MCH 29.8 pg (27.0-32.0); MCHC 32.9 g/dL (32.0-37.0); MCV 90.5 FL (80.0-97.0); Mean Platelet Volume 11.5 FL (9.5-12.2); Monocytes # (A) 0.72 X 10*3/uL (0.20-1.00); NRBC Per 100 WBC 0 X 10*3/uL (0.00-0.01); Neutrophils # (A) 5.61 X 10*3/uL (1.80-7.70); Platelet Count 190 X 10*3/uL (140-440); RBC 5.04 X 10*6/uL (4.10-5.20); RDW 13.2 % (11.5-14.5); WBC 9.04 X 10*3/uL (4.50-10.00)
[2023-03-10 15:37] LABS: ALT 19 U/L (8-44); AST 17 U/L (13-35); Albumin 4.7 g/dL (3.8-4.9); Albumin/Globulin Ratio 1.88 Ratio (1.60-3.17); Alkaline Phosphatase 101 U/L (41-126); Blood Urea Nitrogen 13.3 mg/dL (9.0-27.0); Carbon Dioxide 24.7 mmol/L (21.6-31.8); Chloride 103 mmol/L (96-109); Globulin 2.5 g/dL (1.6-3.3); Glucose 101 mg/dL (70-110); Potassium 4.4 mmol/L (3.5-5.5); Sodium 140 mmol/L (135-145); Total Bilirubin 0.4 mg/dL (0.3-1.2); Total Protein 7.2 g/dL (6.2-8.2)
[2023-03-10 15:47] LABS: INR 0.9 (<1.2); Prothrombin Time 10.2 sec (10.0-12.5)
== END | disposition home or self-care (01) ==
LOC: LABPAT 10:44
PROVIDERS: ATTEND Orthopaedic Surgery
DX: Z01.812 Encounter for preprocedural laboratory examination (principal); M16.12 Unilateral primary osteoarthritis, left hip; E78.5 Hyperlipidemia, unspecified; R73.03 Prediabetes; Z22.322 Carrier or suspected carrier of Methicillin resistant Staphylococcus aureus
CPT/HCPCS: 36415; 80053; 81001; 83036; 85025; 85610; 85730; 86850; 86900; 86901; 87070

== ENCOUNTER 2023-03-13 05:34 | Day surgery (SDC) | payer MEDICARE, OTHER ==
[~2023-03-13 05:34] MED LIST changes: -HEPARIN SODIUM 1,000 UN/ML (10ML VL) IV ONE; -IV FLUID CONTINUATION 1,000 ML IV ONE; -LIDOCAINE 1% INJ 10MG/ML (20 ML MDV) SQ ONE; -MIDAZOLAM 2 MG/2 ML VIAL IV ONE; +ROPIVACAINE/EPI/CLONIDINE/KET 50 ML SYRINGE MISCELLANE PRN; -TICAGRELOR 90 MG TAB PO ONE; -VERAPAMIL SYRINGE (5 MG/10 ML) INTRAARTER ONE; -fentaNYL (PF) 50 MCG/ML 2 ML AMP IV ONE
[2023-03-13] MEDS ORDERED: LACTATED RINGERS 1,000 ML IV SCH (05:58)
[2023-03-13] MEDS ORDERED: TRANEXAMIC 1,000 MG/100ML-NACL 1,000 MG in SALINE 1 100ML.BAG IVPB PRN (06:00)
[2023-03-13] MEDS ORDERED: FAMOTIDINE 20 MG/2 ML VIAL IVP PRN (06:00)
[2023-03-13] MEDS ORDERED: oxyCODONE ER 10 MG TAB.ER.12H PO PRN (06:00)
[2023-03-13] MEDS ORDERED: DOCUSATE 100 MG CAP PO PRN (06:00)
[2023-03-13] MEDS ORDERED: ONDANSETRON 4 MG/2 ML VIAL IVP PRN (06:00)
[2023-03-13] MEDS ORDERED: DEXAMETHASONE SOD PHOSPHATE 10 MG/ML 1 ML VIAL IV PRN (06:00)
[2023-03-13] MEDS ORDERED: ACETAMINOPHEN TAB 500 MG TAB PO PRN (06:00)
[2023-03-13] MEDS ORDERED: KETOROLAC 15 MG/ML 1 ML VIAL IVP PRN (06:00)
[2023-03-13] MEDS ORDERED: TRANEXAMIC 1,000 MG/100ML-NACL 1,000 MG in SALINE 1 100ML.BAG IV PRN (06:00)
[2023-03-13] MEDS: LACTATED RINGERS 1,000 ML IV SCH ×2 (06:37→08:02)
[2023-03-13] MEDS ORDERED: MIDAZOLAM 2 MG/2 ML VIAL IV PRN (07:00)
[2023-03-13] MEDS ORDERED: HYDROmorphone 0.5 MG/0.5 ML SYRINGE IVP PRN (07:00)
[2023-03-13 07:24] VITALS: TEMP 98.8
--- NOTE | 2023-03-13 07:32 | P.PN ---
Progress Note - Text Progress Note Date: 03/13/23 Briefly, the patient has had issues with compliance in the preoperative period. She has missed multiple appointments and has had difficulty following through with her preoperative workup including labs and clearance appointments. The patient has multiple risk factors particularly mental health issues and anxiety. As part of my agreement to proceed with an elective hip replacement I requested that she quit smoking. The patient assured me in the office that she had quit smoking and wished to proceed with an elective joint replacement. This morning when I saw her in preoperative holding she stated that she is still smoking and actually had 2 cigarettes this morning on her way into the hospital. Given her multiple risk factors, continued smoking up to and including on the day of her surgery and her issue with compliance I made the decision to cancel her surgery as I think she is at too high a risk to have an elective joint replacement. We discussed her increased risk of delayed wound healing, superficial surgical site infection and the possibility of deep periprosthetic joint infection. I think that if she were to have a complication would be extremely difficult for her to manage it given her issues with compliance. I do not think she is a candidate for an elective joint replacement at this time. The patient was obviously upset. Her daughter was present and understood my rationale and decision. Unfortunately the patient aren't he had a block by anesthesia. She will be monitored in the postoperative unit and work with physical therapy. The patient is cleared by physical therapy she can discharge home. I discussed with the patient that I would no longer be willing to perform an elective joint replacement on her and she should seek out another orthopedic surgeon as I've given her multiple chances to follow through with preoperative clearance and attempts at smoking cessation. This was discussed at length with the patient and her daughter.
[2023-03-13] MEDS ORDERED: LACTATED RINGERS 400 ML IV ONE (07:57)
--- NOTE | 2023-03-13 08:07 | P.ANPRN ---
Procedure Note - Anesthesia - Nerve Block Performed Left Kiko Single Time Out Performed: Yes ([id number]) Date of Procedure: 03/13/23 Procedure Start Time: 07:00 Procedure Stop Time: 07:05 Location of Patient: PreOp Indication: Acute Post-Operative Pain, Requested by Surgeon Sedation Type: Sedate with meaningful contact maintained Preparation: Sterile Prep, Sterile Dressing Position: Supine Catheter: None Needle Types: Pajunk Needle Gauge: 21 Ultrasound used to visualize needle placement: Yes Ultrasound used to observe medication spread: Yes Injectate: 0.5% Ropivacaine (see comment for volume) (20 ml) Blood Aspirated: No Pain Paresthesia on Injection Noted: No Resistance on Injection: Normal Image Stored and Saved: Yes Events: Uneventful and Well Tolerated
[2023-03-13 08:13] VITALS: RESP 16
[2023-03-13 08:39] VITALS: BP 135/83; PULSE 79
== END 2023-03-13 08:55 | disposition home or self-care (01) ==
LOC: OR 05:34
PROVIDERS: ATTEND Orthopaedic Surgery
DX: Z53.8 Procedure and treatment not carried out for other reasons (principal); M16.12 Unilateral primary osteoarthritis, left hip; Z87.891 Personal history of nicotine dependence
CPT/HCPCS: J2250; J1100; J2405; J1885

== ENCOUNTER 2024-05-18 11:49 | Inpatient (IN) | payer MEDICARE, MEDICAID ==
--- NOTE | 2024-05-18 13:34 | XR ---
EXAMINATION TYPE: XR Hip LT and AP Pelvis DATE OF EXAM: 05/18/2024 1:17 PM COMPARISON: None. CLINICAL INDICATION: Female, 68 years old with history of pain, pain TECHNIQUE: XR Hip LT and AP Pelvis views were obtained. AP Pelvis also obtained. FINDINGS: There is no acute fracture/dislocation evident. Severe degenerative change with bony remod eling of the acetabulum and femoral head. Subchondral sclerosis and cystic changes noted. Subluxation left hip. The overlying soft tissue appears unremarkable. IMPRESSION: No acute fracture or dislocation. Advanced degenerative changes [facility], , 05/18/2024 1:32 PM
--- NOTE | 2024-05-18 13:41 | ED ---
General Adult HPI - General Chief complaint: Extremity Injury, Lower Stated complaint: left hip pain Time Seen by Provider: 05/18/24 11:56 Source: patient, EMS, RN notes reviewed Mode of arrival: EMS Limitations: no limitations - History of Present Illness Initial comments: 68-year-old female presents emerged part via EMS from [facility] office for psychiatric evaluation. Patient does have a longstanding history of psychiatric issues patient was sent over for increased manic episode, psychosis. Patient is complaining of left hip pain without known injury. Patient states that she has been taking medications denies suicidal ideation denies drug use. - Related Data Home Medications Medication Instructions Recorded Confirmed Celecoxib [CeleBREX] 200 mg PO BID 10/07/22 03/13/23 ARIPiprazole [Abilify Asimtufii] 720 mg IM Q60D 03/09/23 03/13/23 Mupirocin 2% Oint [Bactroban 2% 1 applic NASAL BID 03/09/23 03/13/23 Oint] Rosuvastatin Calcium 5 mg PO HS 03/09/23 03/13/23 Previous Rx's Medication Instructions Recorded Aspirin 81 mg PO DAILY 30 Days #30 tab 10/14/22 Allergies Allergy/AdvReac Type Severity Reaction Status Date / Time citalopram hydrobromide Allergy Unknown Verified 05/18/24 12:08 [From Celexa] olanzapine [From Zyprexa] Allergy rash & Verified 05/18/24 12:08 itching Review of Systems ROS Statement: Those systems with pertinent positive or pertinent negative responses have been documented in the HPI. ROS Other: All systems not noted in ROS Statement are negative. Past Medical History Past Medical History: Hyperlipidemia, Myocardial Infarction ([place]), Osteoarthritis (OA) Additional Past Medical History / Comment(s): hips -degeneratve joint disease Last Myocardial Infarction Date:: 2021 History of Any Multi-Drug Resistant Organisms: None Reported Past Surgical History: Heart Catheterization With Stent Additional Past Surgical History / Comment(s): Cosmetic surgery on her nose 1978., stent placement 04/30/21 Past Anesthesia/Blood Transfusion Reactions: No Reported Reaction Additional Past Anesthesia/Blood Transfusion Reaction / Comment(s): pt very sensitive to medications Date of Last Stent Placement:: 04/30/21 Past Psychological History: Anxiety, Bipolar, Schizoaffective Disorder, Schizophrenia Smoking Status: Current every day smoker Past Alcohol Use History: None Reported Past Drug Use History: None Reported - Past Family History Father Family Medical History: Myocardial Infarction ([place]) Additional Family Medical History / Comment(s): [place] x 2- Mother Family Medical History: Diabetes Mellitus Additional Family Medical History / Comment(s): Mother is alive at age 79 with history of Diabetes., polio,depression General Exam Limitations: no limitations General appearance: alert, in no apparent distress Head exam: Present: atraumatic, normocephalic, normal inspection Eye exam: Present: normal appearance, PERRL, EOMI. Absent: scleral icterus, conjunctival injection, periorbital swelling ENT exam: Present: normal exam, mucous membranes moist Neck exam: Present: normal inspection, full ROM. Absent: tenderness, meningismus, lymphadenopathy Respiratory exam: Present: normal lung sounds bilaterally. Absent: respiratory distress, wheezes, rales, rhonchi, stridor Cardiovascular Exam: Present: regular rate, normal rhythm, normal heart sounds. Absent: systolic murmur, diastolic murmur, rubs, gallop, clicks GI/Abdominal exam: Present: soft, normal bowel sounds. Absent: distended, tenderness, guarding, rebound, rigid Neurological exam: Present: alert, oriented X3, CN II-XII intact Psychiatric exam: Present: manic Course Vital Signs 05/18/24 11:56 Temperature 98.8 F Pulse Rate 72 Respiratory 16 Rate Blood Pressure 138/81 O2 Sat by Pulse 97 Oximetry Medical Decision Making - Medical Decision Making Was pt. sent in by a medical professional or institution (, PA, OIL CHANGER, urgent care, hospital, or halfway...) When possible be specific @ -[facility] Did you speak to anyone other than the patient for history (EMS, parent, family, police, friend...)? What history was obtained from this source @ -No Did you review nursing and triage notes (agree or disagree)? Why? @ -I reviewed and agree with nursing and triage notes Were old charts reviewed (outside hosp., previous admission, EMS record, old EKG, old radiological studies, urgent care reports/EKG's, halfway records)? Report findings @ -No old charts were reviewed Differential Diagnosis (chest pain, altered mental status, abdominal pain women, abdominal pain men, vaginal bleeding, weakness, fever, dyspnea, syncope, headache, dizziness, GI bleed, back pain, seizure, CVA, palpatations, mental health, musculoskeletal)? @ -Differential Mental Health Depression, anxiety, bipolar, psychosis, schizophrenia, borderline personality, situational depression, adjustment disorder, behavioral disorder, brain tumor, malingering, substance abuse, encephalopathy, medication reaction, dementia, hypothyroidism, degenerative neurologic disorder, lupus.... This is not meant to be all-inclusive list EKG interpreted by me (3pts min.). @ -None X-rays interpreted by me (1pt min.). @ -Left hip, pelvis no acute fracture CT interpreted by me (1pt min.). @ -None done U/S interpreted by me (1pt. min.). @ -None done What testing was considered but not performed or refused? (CT, X-rays, U/S, labs)? Why? @ -None What meds were considered but not given or refused? Why? @ -None Did you discuss the management of the patient with other professionals (marcelo payton i.eDavid Delgado, PA, OIL CHANGER, lab, RT, psych nurse, delinquency prevention social worker, plasma table operator, teacher, youth corrections officer, skilled nursing case manager)? Give summary @ -EPS evaluated patient and recommended inpatient treatment Was smoking cessation discussed for >3mins.? @ -No Was critical care preformed (if so, how long)? @ -No Were there social determinants of health that impacted care today? How? (Homelessness, low income, unemployed, alcoholism, drug addiction, transportation, low edu. Level, literacy, decrease access to med. care, assisted, rehab)? @ -No Was there de-escalation of care discussed even if they declined (Discuss DNR or withdrawal of care, Hospice)? DNR status @ -No What co-morbidities impacted this encounter? (DM, HTN, Smoking, COPD, CAD, Cancer, CVA, ARF, Chemo, Hep., AIDS, mental health diagnosis, sleep apnea, mor bid obesity)? @ -None Was patient admitted / discharged? Hospital course, mention meds given and route, prescriptions, significant lab abnormalities, going to OR and other pertinent info. @ -Admit to [facility] Undiagnosed new problem with uncertain prognosis? @ -No Drug Therapy requiring intensive monitoring for toxicity (Heparin, Nitro, Insulin, Cardizem)? @ -No Were any procedures done? @ -No Diagnosis/symptom? @ -Acute psychosis, manic bipolar Acute, or Chronic, or Acute on Chronic? @ -Acute Uncomplicated (without systemic symptoms) or Complicated (systemic symptoms)? @ -Complicated Side effects of treatment? @ -No Exacerbation, Progression, or Severe Exacerbation? @ -No Poses a threat to life or bodily function? How? (Chest pain, USA, [place], pneumonia, PE, COPD, DKA, ARF, appy, cholecystitis, CVA, Diverticulitis, Homicidal, Suicidal, threat to staff... and all critical care pts) @ -No Disposition Clinical Impression: Acute psychosis, Manic bipolar I disorder Disposition: TRANSFER TO PSYCH HOSP/UNIT Referrals: Oziel Jacobsen DO [Primary Care Provider] - 1-2 days Time of Disposition: 13:40
[2024-05-18 14:32] LABS: Amphetamine Screen,Urine Not Detected (NotDetected); Barbiturate Screen,Urine Not Detected (NotDetected); Benzodiazepines Screen,Urine Not Detected (NotDetected); Cocaine Screen,Urine Not Detected (NotDetected); Methadone Screen, Urine Not Detected (NotDetected); Opiate Screen,Urine Not Detected (NotDetected); Oxycodone Screen, Urine Not Detected (NotDetected); Phencyclidine Screen,Urine Not Detected (NotDetected); Tricyclic Antidepressant,Urine Not Detected (NotDetected); Urn Cannabinoid Scrn Not Detected (NotDetected)
[2024-05-18] MEDS ORDERED: MAG HYDROX/AL HYDROX/SIMETH 355 ML BOTTLE PO PRN (15:05)
[2024-05-18] MEDS ORDERED: MAGNESIUM HYDROXIDE 2,400 MG/30 ML CUP PO PRN (15:05)
[2024-05-18] MEDS ORDERED: HALOPERIDOL LACTATE 5 MG/ML 1 ML VIAL IM PRN (15:09)
[2024-05-18] MEDS ORDERED: LORazepam 2 MG/ML INJ IM PRN (15:09)
[2024-05-18] MEDS: NICOTINE 14MG/24HR PATCH TRANSDERM SCH (17:44)
[2024-05-18] MEDS: LORazepam 1 MG TAB PO PRN (19:44)
[2024-05-18] MEDS: haloperidoL 5 MG TAB PO PRN (19:44)
--- NOTE | 2024-05-18 19:52 | P.CONS ---
History of Present Illness - Reason for Consult Consult date: 05/18/24 Medical management Requesting physician: Roderick Moran - Chief Complaint Psychiatry issues - History of Present Illness Came to see the patient with the nurse. Patient very agitated. Shouting. Restless. Will visit again when patient is more calm down. Past Medical History Past Medical History: Hyperlipidemia, Myocardial Infarction ([place]), Osteoarthritis (OA) Additional Past Medical History / Comment(s): hips -degeneratve joint disease Last Myocardial Infarction Date:: 2021 History of Any Multi-Drug Resistant Organisms: None Reported Past Surgical History: Heart Catheterization With Stent Additional Past Surgical History / Comment(s): Cosmetic surgery on her nose 1978., stent placement 04/30/21 Past Anesthesia/Blood Transfusion Reactions: No Reported Reaction Additional Past Anesthesia/Blood Transfusion Reaction / Comm: pt very sensitive to medications Date of Last Stent Placement:: 04/30/21 Smoking Status: Current every day smoker - Past Family History Father Family Medical History: Myocardial Infarction ([place]) Additional Family Medical History / Comment(s): [place] x 2- Mother Family Medical History: Diabetes Mellitus Additional Family Medical History / Comment(s): Mother is alive at age 79 with history of Diabetes., polio,depression Medications and Allergies Home Medications Medication Instructions Recorded Confirmed Type Rosuvastatin Calcium 5 mg PO HS 03/09/23 05/18/24 History Allergies Allergy/AdvReac Type Severity Reaction Status Date / Time citalopram hydrobromide Allergy Unknown Verified 05/18/24 14:31 [From Celexa] olanzapine [From Zyprexa] Allergy rash & Verified 05/18/24 14:31 itching Physical Exam Vitals: Vital Signs Temp Pulse Pulse Resp BP BP Pulse Ox 05/18/24 16:08 97.0 F L 83 17 138/78 05/18/24 11:56 98.8 F 72 16 138/81 97 Intake and Output 05/18/24 05/18/24 05/18/24 06:59 14:59 22:59 Other: Weight 79.832 kg
[2024-05-18] MEDS: ATORVASTATIN 10 MG TAB PO SCH (22:55)
[2024-05-19 08:18] LABS: Appearance,Urine Cloudy (Clear); Bilirubin,Urine Negative (Negative); Blood,Urine Negative (Negative); Calcium Oxalate Crystals,Urine Many /hpf; Color,Urine Light Yellow; Glucose,Urine (UA) Negative (Negative); Ketones,Urine Negative (Negative); Leukocyte Esterase,Urine Negative (Negative); Mucus,Urine Rare /hpf; Nitrite,Urine Negative (Negative); PH, Urine 6.5 (5.0-8.0); Protein,Urine Negative (Negative); Specific Gravity,Urine 1.018 (1.001-1.035); Squamous Epithelial Cell,Urine 5 /hpf (0-4); Urobilinogen,Urine <2.0 mg/dL (<2.0); WBC,Urine 3 /hpf (0-5)
[2024-05-19] MEDS ORDERED: NICOTINE 14MG/24HR PATCH TRANSDERM SCH (09:00)
--- NOTE | 2024-05-19 11:54 | P.EN ---
Went to [facility] to see the patient. Charge nurse informed me that patient received medication to rest and she will not wake up right now. Hence consultation deferred.
[2024-05-19] MEDS: IBUPROFEN 600 MG TAB PO PRN (14:15)
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
[2024-05-19] MEDS: PALIPERIDONE 6 MG TAB.ER.24 PO SCH (16:29)
[2024-05-19] MEDS: traZODone HCL 100 MG TAB PO PRN (20:35)
[2024-05-19] MEDS: LITHIUM CARBONATE 300 MG CAP PO SCH (20:35)
[2024-05-20 08:56] LABS: Basophils # (A) 0.1 k/uL (0-0.2); Basophils % (A) 1 %; Eosinophils # (A) 0.2 k/uL (0-0.7); Eosinophils % (A) 3 %; HCT 48.4 % (34.0-46.0); Lymphocytes % (A) 28 %; MCHC 33.1 g/dL (31.0-37.0); MCV 90.6 fL (80.0-100.0); Mean Platelet Volume 8.3; Monocytes # (A) 0.5 k/uL (0-1.0); Monocytes % (A) 7 %; Neutrophils # (A) 4.3 k/uL (1.3-7.7); Neutrophils % (A) 59 %; Platelet Count 198 k/uL (150-450); RBC 5.34 m/uL (3.80-5.40); RDW 12.8 % (11.5-15.5); WBC 7.2 k/uL (3.8-10.6)
[2024-05-20 09:21] LABS: ALT 21 U/L (4-34); AST 32 U/L (14-36); African American GFR (CKD) >90 (>60 ml/min/1.73 sqM); Albumin 4.4 g/dL (3.5-5.0); Alkaline Phosphatase 102 U/L (38-126); Anion Gap 6 mmol/L; Blood Urea Nitrogen 15 mg/dL (7-17); Calcium 9.6 mg/dL (8.4-10.2); Carbon Dioxide 30 mmol/L (22-30); Chloride 104 mmol/L (98-107); Glucose 147 mg/dL (74-99); Non-African American GFR(CKD) >90 (>60 ml/min/1.73 sqM); Sodium 140 mmol/L (137-145); Total Bilirubin 0.6 mg/dL (0.2-1.3); Total Protein 7.3 g/dL (6.3-8.2)
[2024-05-20] MEDS ORDERED: ALBUTEROL NEBULIZED 2.5 MG/3 ML INHALATION PRN (16:52)
--- NOTE | 2024-05-20 16:56 | P.CONS ---
History of Present Illness - Reason for Consult Consult date: 05/20/24 Medical manage Requesting physician: Oziel Haynes - Chief Complaint Multiple psychiatry symptoms - History of Present Illness 68-year-old patient who follows with Dr. Jacobsen. Has a diagnosis of schizoaffective disorder bipolar type. Longstanding history of psychiatry illness. Patient now presents with pressured ideas. Psychotic. Agitated. Left hip pain. I was unable to see the patient for last 2 days for reasons as documented. Today patient appears more calm. Complaining of left hip pain. She had follows with Dr. Olguin from orthopedics. Problems last noted in March 2023. Patient not follow-up with his office. And also smoking. Because of compliance issue he had decided to cancel the surgery. He did discharge the patient said he would not follow-up the same. He had told the patient to seek another orthopedic physician. Patient asked about this in detail as she needs to seek out orthopedic physician. This will have to be done as an outpatient. Patient smokes a few cigarettes a day. Eating fine. Some trouble sleeping. Review of systems: GEN.: Tired EYES: None HEENT: None NECK: None RESPIRATORY: Occasional short of breath CARDIOVASCULAR: As above GASTROINTESTINAL: None GENITOURINARY: None MUSCULOSKELETAL: Joint pains, especially left hip LYMPHATICS: None HEMATOLOGICAL: None PSYCHIATRY: As above, trouble sleeping NEUROLOGICAL: None Past medical history to include: Hyperlipidemia, osteoarthritis, bipolar disorder, nicotine dependence. CAD with stent Social history: Long-standing smoker .. Lives alone. Social drinker Physical examination: VITAL SIGNS: 98.8, 72, 16, 138 x 81, 97% room air GENERAL: BMI 27.6, lying in bed, tired anxious EYES: Pupils equal. Conjunctiva normal. HEENT: External appearance of nose and ears normal, oral cavity grossly normal. NECK: JVD not raised; masses not palpable. HEART: First and second heart sounds are normal; no edema. LUNGS: Respiratory rate normal; diminished breath sounds. ABDOMEN: Soft, nontender, liver spleen not palpable, no masses palpable. PSYCH: Anxious. Pressured speech. MUSCULOSKELETAL:No Clubbing/cyanosis;muscles-grossly intact. Some limitation of movement of left hip. NEUROLOGICAL: Cranial nerves grossly intact; no facial asymmetry, power and sensation grossly intact. LYMPHATICS: No lymph nodes palpable in the axilla and neck INVESTIGATIONS, reviewed in the clinical context: May 20, 2024: White count 7.2 hemoglobin 16 platelets 198 sodium 140 potassium 4 creatinine 0.68 Urine drug screen: Not detected SARS-CoV-2: Not detected Left hip x-ray: Advanced DJD Assessment and plan: -COPD in a current smoker Albuterol when necessary -Chronic nicotine dependence, cigarette smoker Nicotine patch -CAD with stent to LAD. Aspirin. Lipitor. -Primary osteoarthritis of multiple joints. Severe in the left hip. Patient been noncompliant outpatient and did see Dr. Olguin. He is discharged from his practice. Patient was due for surgery in the left hip. Currently use Tylenol and NSAIDs as needed for pain. Patient to follow-up with orthopedics of her choice outpatient. -Schizoaffective disorder bipolar type.: unControlled Follow with psychiatry Care was discussed with the patient. Thank you Dr. Haynes Past Medical History Past Medical History: Hyperlipidemia, Myocardial Infarction ([place]), Osteoarthritis ([place]) Additional Past Medical History / Comment(s): hips -degeneratve joint disease Last Myocardial Infarction Date:: 2021 History of Any Multi-Drug Resistant Organisms: None Reported Past Surgical History: Heart Catheterization With Stent Additional Past Surgical History / Comment(s): Cosmetic surgery on her nose 1978., stent placement 04/30/21 Past Anesthesia/Blood Transfusion Reactions: No Reported Reaction Additional Past Anesthesia/Blood Transfusion Reaction / Comm: pt very sensitive to medications Date of Last Stent Placement:: 04/30/21 Smoking Status: Current every day smoker - Past Family History Father Family Medical History: Myocardial Infarction ([place]) Additional Family Medical History / Comment(s): [place] x 2- Mother Family Medical History: Diabetes Mellitus Additional Family Medical History / Comment(s): Mother is alive at age 79 with history of Diabetes., polio,depression Medications and Allergies Home Medications Medication Instructions Recorded Confirmed Type Rosuvastatin Calcium 5 mg PO HS 03/09/23 05/18/24 History Allergies Allergy/AdvReac Type Severity Reaction Status Date / Time citalopram hydrobromide Allergy Unknown Verified 05/18/24 14:31 [From Celexa] olanzapine [From Zyprexa] Allergy rash & Verified 05/18/24 14:31 itching Physical Exam Vitals: Vital Signs Temp Pulse Resp BP Pulse Ox 05/20/24 08:18 97.4 F L 115 H 137/76 98 05/19/24 23:06 98.1 F 120 H 18 135/84 96 Results CBC & Chem 7: 05/20/24 08:44 05/20/24 08:44 Labs: Abnormal Lab Results - Last 24 Hours (Table) 05/20/24 05/20/24 05/20/24 Range/Units 08:44 08:44 08:44 Hct 48.4 H (34.0-46.0) % Glucose 147 H (74-99) mg/dL Hemoglobin A1c 6.2 H (<=6.0) %
[2024-05-20] MEDS: ASPIRIN 81 MG PO SCH (17:13)
--- NOTE | 2024-05-20 17:13 | P.PN ---
Progress Note - Text Progress Note Date: 05/20/24 Interval History: Chief complaint "calista" HPI Patient was seen [wandering the hallways] and was directable and agreeable to speak with keno writer in the office. The interview was limited the patient was having flight of ideas and had a hard time staying on track. She did express some delusional thoughts including with trumpet being on the cabinet. She notes that she is struggling with concentrating. She notes that her energy is fair. She states that her sleep was up and down. She denied any active suicidal thoughts. Patient denies any auditory, visual hallucinations and denies any paranoia or delusions. Patient denies any side effects from the medications and has been compliant with meds. Mental Status Exam: General Appearance: [Patient appears to be stated age is alert, and guarded] Behavior: Patient presented with agitated psychomotor activities and had to be redirected multiple times during the interview. Speech: Patient's speech is fluent and pressured. Mood/Affect: Manic and not congruent Suicidality/Homicidality: Patient denies having any suicidal or homicidal idea tion intent or plan. Perceptions: Patient denies any visual hallucinations [and denies any auditory hallucinations] Though content/process: Delusional Memory and concentration: AOX3, grossly intact for the purposes of this session Judgment and insight: Improving mildly Diagnosis Schizoaffective disorder bipolar type Assessment Patient had a hard time staying involved in the conversation presented manic and disorganized in thought process. Additionally prior to coming into the appointment I heard her yelling out in the hallway and she displayed going from sadness to elation. Patient continues to need to be stabilized prior to discharge. Plan: -Patient continues to meet criteria for inpatient psychiatric admission for symptom stabilization and safety. Patient has signed [adult voluntary form and] [medication consent] and was placed in patient's chart. -Medications: Continue [place] 300 mg take 1 capsule by mouth twice daily Invega 6 mg take 1 tablet by mouth once daily Trazodone 100 mg take 1 tablet by mouth at bedtime -When necessary Ativan and Haldol for agitation/aggression. -NRT - [nicotine patch] -SW on board for discharge planning. Encouraged the patient to participate in milieu.
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
[2024-05-22] MEDS: PALIPERIDONE 3 MG TAB.ER.24 PO SCH (10:01)
--- NOTE | 2024-05-22 15:15 | P.PN ---
Progress Note - Text Progress Note Date: 05/22/24 Interval history: Patient was seen bedside and was directable and agreeable to speak with science writer. Patient is pleasant on interaction and has disorganization and thought that is difficult to understand. She begins speaking about a car and then begins to speak about some distant relative of hers. Patient has pressured speech but responds to verbal redirection. She says her mood is "good ". She has mild grandiosity and states things such as "I came up with a lot of ideas ". She is agreeable with lithium being changed to bedtime because she does not like the morning dose and she is agreeable with continue to take Invega. Patient denies concerns with sleep or appetite. However, she reports not having had a bowel movement in some time and patient was asked to ask for milk of magnesia if needed for constipation. At this time patient denies any suicidal or homicidal ideations intent or plan. Denies any Auditory or visual hallucinations. Patient denies any side effects from the medications and has been compliant with meds. Mental status exam: General Appearance: Patient appears to be stated age is alert, directable, and cooperative. Behavior: No agitated behavior. Patient is calm and directable Speech: Patient's speech is pressured Mood/Affect: Mood is elevated, affect is congruent Suicidality/Homicidality: Patient denies having any suicidal or homicidal ideation intent or plan. Perceptions: Patient denies any auditory or visual hallucinations. Though content/process: Word salad or tangential. Memory and concentration: AOX3, poor attention Judgment and insight: poor Assessment/Plan: Continue with current diagnosis. Patient continues to meet criteria for inpatient psychiatric admission for symptom stabilization and safety. Increase lithium to 900 mg at bedtime. Patient will be maintained on other psychotropic medication regimen. Monitor for medication compliance and for any psychotropic medication side effects. Will continue to monitor ongoing response to treatment. Encouraged participation in milieu.
[2024-05-22] MEDS: LITHIUM CARBONATE ER 450 MG TABLET.ER PO SCH (20:01)
--- NOTE | 2024-05-23 12:40 | P.PN ---
Progress Note - Text Progress Note Date: 05/23/24 Interval History: Patient was seen wandering the hallways and was directable and agreeable to sp mikala with fiction and nonfiction writer prose in the office. Patient displayed flight of ideas, grandiose delusions described as her creating mobile crisis, pads on bicycles and her obtaining her degree in psychiatry. Patient feels as though the lithium is too much described as "walking on parallel". Patient denied any unsteady gait or dizziness and she was encouraged to continue taking this medication as her body will develop a tolerance to it with time. Patient states she plans on getting soon. Patient reportedly lives independently and has a public guardian. She states sleeping well. At this time patient denies any suicidal or homicidal ideations, intent or plan. Patient denies any auditory, visual hallucinations. Patient denies any side effects from the medications and has been compliant with meds. Mental Status Exam: General Appearance: Patient appears to be stated age is alert, directable, and cooperative. Behavior: Patient is calmly seated without any agitated behavior. Speech: Patient's speech is fluent and talkative, pressured speech Mood/Affect: Mood is improving mildly, affect is congruent and expansive. Suicidality/Homicidality: Patient denies having any suicidal or homicidal idea tion intent or plan. Perceptions: Patient denies any visual hallucinations and denies any auditory hallucinations Though content/process: There is evidence of grandiose delusions, disorganized thoughts, flight of ideas Memory and concentration: AOX3, grossly intact for the purposes of this session Judgment and insight: Improving mildly Assessment Schizoaffective disorder, bipolar type Nicotine dependence Plan: -Patient continues to meet criteria for inpatient psychiatric admission for symptom stabilization and safety. Patient has not signed adult voluntary form and medication consent and was placed in patient's chart. -Medications: Continue lithium 900 mg at bedtime for mood stabilization, Invega increased to 9 mg daily today for psychosis -When necessary Ativan and Haldol for agitation/aggression. -Labs: Reviewed -NRT -nicotine patch and gum as needed -SW on board for discharge planning. Encouraged the patient to participate in milieu. Currently awaiting deferral with trial attorney and court date.
[2024-05-23] MEDS: NICOTINE GUM (POLACRILEX) 2 MG GUM BUCCAL PRN (14:33)
[2024-05-23] MEDS: ACETAMINOPHEN TAB 325 MG TAB PO PRN (21:28)
[2024-05-24] MEDS: PALIPERIDONE 3 MG TAB.ER.24 PO STA (11:28)
--- NOTE | 2024-05-24 14:41 | P.PN ---
Progress Note - Text Progress Note Date: 05/24/24 Interval History: Patient was seen in the lung and was directable and agreeable to speak with wr iter in the lounge alone. Patient continues to display flight of ideas, talked about [place] and how she has not had a man in over 30 years and is fixated on one of her peers on the unit. This was discouraged and patient was encouraged to maintain her boundaries and respect other people's boundaries as well. Patient stated she was feeling tired. Patient was labile, began yelling at resume writer when told she would not be discharged soon, reporting suicidal ideations described as not wanting to live anymore however she later on apologized and was more appropriate. Patient reports chronic sleep difficulties however did states she slept 4 hours overnight but this is baseline. She denied any paranoia. Patient earlier was angry and hostile at peers and staff and this was discussed however patient states others were talking to her like a child. At this time patient denies any homicidal ideations, intent or plan. Patient denies any auditory, visual hallucinations. Patient denies any side effects from the medications and has been compliant with meds. Mental Status Exam: General Appearance: Patient appears to be stated age is alert, directable, and cooperative. Behavior: Patient is calmly laying without any agitated behavior. Speech: Patient's speech is fluent and pressured, loud volumes at times Mood/Affect: Mood is improving mildly, affect is congruent and labile. Suicidality/Homicidality: Patient denies having any homicidal ideation intent or plan. She does report suicidal thoughts Perceptions: Patient denies any visual hallucinations and denies any auditory hallucinations Though content/process: There is evidence of delusional thoughts, disorganization Memory and concentration: AOX3, grossly intact for the purposes of this session Judgment and insight: Improving mildly Assessment Schizoaffective disorder, bipolar type Nicotine dependence Plan: -Patient continues to meet criteria for inpatient psychiatric admission for symptom stabilization and safety. Patient has not signed adult voluntary form and medication consent and was placed in patient's chart. -Medications: Increase Invega to 12 mg daily today for psychosis, continue lit hium 900 mg at bedtime for mood stabilization -When necessary Ativan and Haldol for agitation/aggression. -Labs: Will obtain a lithium level in a few days -NRT -nicotine patch and gum as needed -SW on board for discharge planning. Encouraged the patient to participate in milieu. Patient deferred.
[2024-05-25] MEDS: PALIPERIDONE 6 MG TAB.ER.24 PO SCH (08:44)
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
[2024-05-25] MEDS: traZODone HCL 50 MG TAB PO SCH (20:57)
--- NOTE | 2024-05-26 12:11 | P.PN ---
Progress Note - Text Progress Note Date: 05/26/24 Interval History: Patient was seen in bed and was directable and agreeable to speak with senior writer in the room. Patient still rambling, displaying flight of ideas with delusional thoughts. She reports expressing suicidal thoughts overnight due to her being depressed since she has been unable to speak to her on 9 boyfriend of 11 months whom she described as a commander in [place] and is requesting $50,000 from her for the [place] [employer] in order to live here. Patient is adamant that this is not a scam as she has been scammed before. Patient displays poor insight, stating she does not need to be on medications and was not agreeable with transitioning to [facility] however she was reminded of her deferral status and thus this will be implemented. Patient reports poor sleep overnight related to her missing her boyfriend. At this time patient denies any suicidal or homicidal ideations, intent or plan. Patient denies any auditory, visual hallucinations and denies any paranoia or delusions. Patient denies any side effects from the medications and has been compliant with meds. She no longer mentions shortness of breath. Mental Status Exam: General Appearance: Patient appears to be stated age is alert, directable, and cooperative. Behavior: Patient is calmly laying without any agitated behavior. Speech: Patient's speech is pressured, rambling but interruptible Mood/Affect: Mood is improving mildly, affect is congruent and labile. Suicidality/Homicidality: Patient denies having any suicidal or homicidal ideation intent or plan. Perceptions: Patient denies any visual hallucinations and denies any auditory hallucinations Though content/process: There is evidence of grandiose delusions, flight of ideas however unclear how close to baseline patient is that she has displayed these symptoms at baseline previously Memory and concentration: AOX3, grossly intact for the purposes of this session Judgment and insight: Poor Assessment Schizoaffective disorder, bipolar type Nicotine dependence Plan: -Patient continues to meet criteria for inpatient psychiatric admission for symptom stabilization and safety. Patient has not signed adult voluntary form and medication consent and was placed in patient's chart. -Medications: Invega Sustenna 234 mg IM to be given today with the second loading dose to be given over the weekend, continue Invega 12 mg daily for psychosis, lithium 900 mg at bedtime for mood stabilization, trazodone 50 mg at bedtime for insomnia -When necessary Ativan and Haldol for agitation/aggression. -Labs: [place] level returned at 0.7 -NRT -nicotine patch -SW on board for discharge planning. Encouraged the patient to participate in milieu. Patient signed deferral, anticipate discharge back home early next week pending transition to [facility]
[2024-05-26] MEDS: PALIPERIDONE IM 234 MG/1.5 ML SYG IM ONE (17:15)
[2024-05-27] MEDS: LITHIUM CARBONATE 300 MG CAP PO SCH (09:00)
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
--- NOTE | 2024-05-28 11:00 | P.PN ---
Progress Note - Text Progress Note Date: 05/28/24 Interval history: Patient was seen wandering the hallways and was directable and agreeable to s [place] with sign writer letterer or painter. Patient continues to display lability in mood, expressing suicidal ideations directly related to her inability to see her online Michael. She is fearful that he thinks she is , adamant that this is not a scam. She was goal oriented, expressed relative coming for visitation today. She has been tending to her ADLs. She reports sleeping well however does require some as needed medications. She reports feeling dizzy with the 12 mg of Invega. At this time patient denies any homicidal ideations intent or plan. Denies any auditory or visual hallucinations. Patient has been compliant with meds. Mental status exam: General Appearance: Patient appears to be stated age is alert, directable, and cooperative. Behavior: No agitated behavior. Patient is high-energy and directable Speech: Patient's speech is fluent and talkative but interruptible Mood/Affect: Mood is improving mildly, affect is congruent and expansive, labile Suicidality/Homicidality: Patient denies having any suicidal or homicidal ideation intent or plan. Perceptions: Patient denies any auditory or visual hallucinations. Though content/process: Patient appears to be close to baseline with delusions, still exhibiting flight of ideas however lessening in intensity Memory and concentration: AOX3, grossly intact for the purposes of this session Judgment and insight: Poor Assessment/Plan: Continue with current diagnosis. Patient continues to meet criteria for inpatient psychiatric admission for symptom stabilization and safety. Patient will be maintained on current psychotropic medication regimen. Monitor for medication compliance and for any psychotropic medication side effects. Will continue to monitor ongoing response to treatment. Encouraged participation in milieu.
[2024-05-29] MEDS: PALIPERIDONE 6 MG TAB.ER.24 PO SCH (08:28)
--- NOTE | 2024-05-29 11:09 | P.PN ---
Progress Note - Text Progress Note Date: 05/29/24 Interval history: Patient was seen in bed and was directable and agreeable to speak with investigative writer. She continues to display lability, expressing suicidal ideations due to her being here and her being unable to speak to her online . She states getting into an argument with her daughter yesterday during visitation due to her claiming that her Michael is a scammer. She questions when she will be discharged to which investigative writer stated this will happen soon. She reports feeling as though she is in a coma state due to the medications however she has been seen walking about the unit, sleep at baseline. Continues to display delusional thoughts and poor insight, stating she does not have bipolar disorder and does not need to be on medications. At this time patient denies any homicidal ideations intent or plan. Denies any auditory or visual hallucinations. Patient has been compliant with meds. Mental status exam: General Appearance: Patient appears to be stated age is alert, directable, and cooperative. Behavior: No agitated behavior. Patient is irritable but directable Speech: Patient's speech is fluent and pressured, interruptible. Mood/Affect: Mood is improving mildly, affect is congruent and labile. Suicidality/Homicidality: Patient denies having any homicidal ideation intent or plan. Patient expresses suicidal thoughts due to her still being in the hospital, no plan or intent Perceptions: Patient denies any auditory or visual hallucinations. Though content/process: Patient continues to display delusions, flight of ideas, lessening in intensity and close to baseline Memory and concentration: AOX3, grossly intact for the purposes of this session Judgment and insight: Poor Assessment/Plan: Continue with current diagnosis. Patient continues to meet criteria for inpatient psychiatric admission for symptom stabilization and safety. Patient will be maintained on current psychotropic medication regimen other than the following: Decrease Invega to 6 mg daily for psychosis. Patient to receive second loading dose of Invega Sustenna tomorrow with lithium level ordered to be completed tomorrow as well. Monitor for medication compliance and for any psychotropic medication side effects. Will continue to monitor ongoing response to treatment. Encouraged participation in milieu.
--- NOTE | 2024-05-30 13:01 | P.PN ---
Progress Note - Text Progress Note Date: 05/30/24 Interval History: Patient was seen in bed and was directable and agreeable to speak with remote mortgage underwriter in the room. Patient has been reporting dizziness, vomited yesterday. Patient denied dizziness while laying however does report dizziness while standing and she was encouraged to sit at the edge of the bed for few minutes before standing when laying down. She was also encouraged to drink plenty of fluids. Patient feels as though this is due to her medications, emphasizing that she has allergic reactions to everything other than Excedrin. She continues to display poor insight, denying any mental health diagnoses and upset at her [facility] worker for bringing her here. Patient displayed delusions, stating her daughter's father was the head of [facility]. She continues to exhibit lability. Patient states that her previous suicidal statements were more of a figure of speech, vehemently denying any suicidal ideations with plan or intent.. At this time patient denies any homicidal ideations, intent or plan. Patient denies any auditory, visual hallucinations. Patient did not take her Invega oral or lithium last night or this morning given her nausea and dizziness. Mental Status Exam: General Appearance: Patient appears to be stated age is alert, directable, and cooperative. Behavior: Patient is calmly laying without any agitated behavior. Speech: Patient's speech is fluent and pressured, more interruptible. Mood/Affect: Mood is improving mildly, affect is congruent and constricted. Suicidality/Homicidality: Patient denies having any suicidal or homicidal ideation intent or plan. Perceptions: Patient denies any visual hallucinations and denies any auditory hallucinations Though content/process: There is evidence of delusions, flight of ideas, close to baseline Memory and concentration: AOX3, grossly intact for the purposes of this session Judgment and insight: Poor Assessment Schizoaffective disorder, bipolar type Nicotine dependence Plan: -Patient continues to meet criteria for inpatient psychiatric admission for symptom stabilization and safety. Patient has not signed adult voluntary form and medication consent and was placed in patient's chart. -Medications: Invega Sustenna 156 mg IM to be given this afternoon, patient already received first loading dose of 234 mg IM on 05/26/2024. Discontinue oral Invega 6 mg today and continue lithium 300 mg daily and ER 900 mg at bedtime for mood stabilization -When necessary Ativan and Haldol for agitation/aggression. -Labs: [place] level returned back at 0.6 however patient did not received her evening dose yesterday due to vomiting and dizziness. Recommend patient's outpatient team to recheck this -NRT -nicotine patch -SW on board for discharge planning. Encouraged the patient to participate in milieu. Patient to be discharged tomorrow. She signed a deferral.
[2024-05-30 15:00] VITALS: BMI 28.3
[2024-05-30] MEDS: PROCHLORPERAZINE 5 MG TAB PO PRN (15:13)
--- NOTE | 2024-05-30 19:34 | P.PN ---
Progress Note - Text Progress Note Date: 05/30/24 - Chief Complaint Multiple psychiatry symptoms - History of Present Illness 68-year-old patient who follows with Dr. Jacobsen. Has a diagnosis of schizoaffective disorder bipolar type. Longstanding history of psychiatry illness. Patient now presents with pressured ideas. Psychotic. Agitated. Left hip pain. I was unable to see the patient for last 2 days for reasons as documented. Today patient appears more calm. Complaining of left hip pain. She had follows with Dr. Olguin from orthopedics. Problems last noted in March 2023. Patient not follow-up with his office. And also smoking. Because of compliance issue he had decided to cancel the surgery. He did discharge the patient said he would not follow-up the same. He had told the patient to seek another orthopedic physician. Patient asked about this in detail as she needs to seek out orthopedic physician. This will have to be done as an outpatient. Patient smokes a few cigarettes a day. Eating fine. Some trouble sleeping. May 30: Patient complaining of dizziness for last day or so. Possibly related to her medications. But she is able to walk to the dining room also complains of nausea which is likely better. Will do a CT scan of the brain without contrast. No focal symptoms. Patient not able to stay on to 1 topic and goes from 1 topic to the other. Does swell intermittently. Past medical history to include: Hyperlipidemia, osteoarthritis, bipolar disorder, nicotine dependence. CAD with stent Social history: Long-standing smoker .. Lives alone. Social drinker Physical examination: VITAL SIGNS: 97.4, 79, 18, 136/64, 98% room air GENERAL: BMI 27.6, lying in bed, bit anxious EYES: Pupils equal. Conjunctiva normal. HEENT: External appearance of nose and ears normal, oral cavity grossly normal. NECK: JVD not raised; masses not palpable. HEART: First and second heart sounds are normal; no edema. LUNGS: Respiratory rate normal; diminished breath sounds. ABDOMEN: Soft, nontender, liver spleen not palpable, no masses palpable. PSYCH: Anxious. Pressured speech. MUSCULOSKELETAL:No Clubbing/cyanosis;muscles-grossly intact. Some limitation of movement of left hip. Neurological: Cranial nerves grossly intact. No lateralizing signs INVESTIGATIONS, reviewed in the clinical context: May 30: [place] 0.6 May 20, 2024: White count 7.2 hemoglobin 16 platelets 198 sodium 140 potassium 4 creatinine 0.68 Urine drug screen: Not detected SARS-CoV-2: Not detected Left hip x-ray: Advanced DJD Assessment and plan: -COPD in a current smoker Albuterol when necessary -Chronic nicotine dependence, cigarette smoker Nicotine patch -Acute dizziness likely medication related Psychiatry is adjusting medications. CT brain without contrast to rule out any acute event: Patient has no lateralizing symptoms. Or signs -CAD with stent to LAD. Aspirin. Lipitor. -Primary osteoarthritis of multiple joints. Severe in the left hip. Patient been noncompliant outpatient and did see Dr. Olguin. He is discharged from his practice. Patient was due for surgery in the left hip. Currently use Tylenol and NSAIDs as needed for pain. Patient to follow-up with orthopedics of her choice outpatient. -Schizoaffective disorder bipolar type.: unControlled Follow with psychiatry Discussed with patient. Thank you Dr. Haynes Past Medical History Past Medical History: Hyperlipidemia, Myocardial Infarction (NM), Osteoarthritis (OA) Additional Past Medical History / Comment(s): hips -degeneratve joint disease Last Myocardial Infarction Date:: 2021 History of Any Multi-Drug Resistant Organisms: None Reported Past Surgical History: Heart Catheterization With Stent Additional Past Surgical History / Comment(s): Cosmetic surgery on her nose 1978., stent placement 04/30/21 Past Anesthesia/Blood Transfusion Reactions: No Reported Reaction Additional Past Anesthesia/Blood Transfusion Reaction / Comm: pt very sensitive to medications Date of Last Stent Placement:: 04/30/21 Smoking Status: Current every day smoker
[2024-05-30 20:46] VITALS: RESP 16
--- NOTE | 2024-05-30 20:56 | CT ---
EXAMINATION TYPE: CT brain wo con DATE OF EXAM: 05/30/2024 8:23 PM COMPARISON: None. CLINICAL INDICATION: Female, 68 years old with history of Acute dizziness, Dizziness TECHNIQUE: Brain: Axial CT images of the brain were obtained with coronal and sagittal reformats created and rev iewed. Contrast used: None. Oral contrast used: None. CT DLP: 1081.6 mGycm, Automated exposure control for dose reduction was used. FINDINGS: Brain: Extra-axial spaces: No abnormal extra-axial fluid collections. Ventricular system: Within normal limits Cerebral parenchyma: No acute intraparenchymal hemorrhage or mass effect. The meeks-white junction is well differentiated. Cerebellum: Unremarkable. Mass effect: No evidence of midline shift. Intracranial vasculature: Atherosclerotic calcifications of the intracranial vessels. Soft tissues: Normal. Calvarium/osseous structures: No depressed skull fracture. Paranasal sinuses and mastoid air cells: Mild scattered paranasal sinus disease. Visualized orbits: Orbital contents are intact. IMPRESSION: No acute intracranial process. [facility], , 05/30/2024 8:53 PM
[2024-05-30] MEDS: PALIPERIDONE IM 156 MG/ML SYG IM ONE (21:08)
[2024-05-31 09:38] VITALS: BP 115/65; PULSE 81; TEMP 98.4
--- NOTE | 2024-05-31 11:39 | P.DS ---
Providers Date of admission: 05/18/24 15:04 Expected date of discharge: 05/31/24 Attending physician: Linn Stone MD Consults: 05/18/24 15:05 Consult Physician Routine Consulting Provider: Rachid Joseph Consult Reason/Comments: H&P Do you want consulting provider notified?: Yes Primary care physician: Oziel Jacobsen - Discharge Diagnosis(es) (1) Schizoaffective disorder, bipolar type Current Visit: Yes Status: Acute Priority: High (2) Nicotine dependence Current Visit: Yes Status: Acute Priority: Low Hospital Course: Admission HPI: Admission note was completed by Dr. Moran "Patient presented to the ED for hip pain and presented hyperverbal, has loose associations, flight of ideas, and poor sleep. Patient reported delusions and said that she was working for [employer], is being scammed from somewhere [place]. She reported giving men money online to be in a relationship with her. Per EPS note: "Pt is highly delusional and believes that Fiona was in her apartment recently for a rally. Pt is nonsensical and jumping from topic to topic, unable to answer the initial question without constant redirection. Pt believed that she brought a man from the [place], states that she made and is living in the [place]. She speaks about how she was asked to be [facility]. When speaking about [facility] she did get upset and state she has been on 43 years d/t the Nazis and she was kicked out of [place]." Patient was seen via HIPAA-compliant Zoom today and she consented. However, she is quite disorganized in her thought process, yells often, and displays paranoia. Patient was a poor historian and history was largely obtained from chart review. She yelled numerous times for this play writer to conclude the interview, and displayed a word salad. She had numerous demands for things to be changed to make her more comfortable because she reported pain to be an issue. Patient denies any suicidal or homicidal ideation intent or plan. At this time patient denies any auditory or visual hallucinations. Patient denies substance use and UDS was negative. She was unwilling to participate further in an interview." Hospital course: Upon admission to the unit patient was admitted involuntarily on a petition and certificate and a second certificate was completed and faxed to the courts. Patient ended up signing a deferral with the trial attorney and agreeing to treatment.. Patient followed unit protocol, displaying mood lability however did not require any as needed medications often redirectable. Patient was compliant with the medications and denied any side effects throughout hospital course. Patient was started on Invega and this was increased to 12 mg daily for psychosis, lithium increased to 300 mg daily and ER 900 mg at bedtime for mood stabilization. [place] level returned back at 0.6 however patient the previous night did not take her evening dose of lithium due to vomiting and dizziness thus recommend patient's outpatient team to recheck this. Patient ultimately was transition to Invega Sustenna 234 mg IM every 4 weeks last given on 05/30/2024 and next due on 06/27/2024. Patient was also seen by medical team for history and physical exam. Patient did receive a brain CT scan given her dizziness which did not reveal any abnormalities. Throughout the course of the hospitalization patient gradually improved with regards to mood, anxiety, sleep and returned back to their baseline level of functioning. On the day of discharge patient denied any suicidal or homicidal ideations intent or plan denied any auditory or visual hallucinations. The patient denied any access to guns or weapons. Patient denied any paranoia however did report baseline delusions, flight of ideas. Patient does not have a significant history of substance abuse and was counseled on abstaining from all substances including alcohol and marijuana. Patient was also counseled on the medications and need for regular compliance and was encouraged to follow-up with their outpatient appointment for mental health and also for primary care. Prior to discharge a family meeting will be arranged by sr. social media & mobile manager to answer any questions and ensure safety upon discharge including making sure that guns/weapons are either removed from the home or locked away. Patient was reminded of her deferral status and was encouraged to follow-up with [facility]. Mental status exam: General Appearance: Patient appears to be stated age is alert, and cooperative. Patient is in no acute distress and has fair hygiene and grooming Behavior: Patient is calmly laying without any agitated behavior. Speech: Patient's speech is fluent and pressured however interruptible Mood/Affect: Patient reports their mood is "good", affect is congruent and about Suicidality/Homicidality: Patient denies having any suicidal or homicidal ideation intent or plan. Perceptions: Patient denies any auditory or visual hallucinations. Though content/process: There is evidence of delusions, flight of ideas however at baseline Memory and concentration: AOX3, grossly intact for the purposes of this session. Can spell "WORLD" backwards correctly. Judgment and insight: Chronically poor, however has improved with guarded prognosis Impression: Schizoaffective disorder, bipolar type Nicotine dependence Plan: -Continue with discharge today as patient has improved and stabilized psychiatrically and is not currently an imminent threat to themself and/or others. -Continue medications: Invega Sustenna 234 mg IM every 4 weeks last given on 05/30/2024 and next due on 06/27/2024, lithium 300 mg daily and ER 900 mg at bedtime. Encourage patient's outpatient team to recheck lithium as the most recent level was 0.6 however this was in the context of patient experiencing vomiting the previous night and was unable to take her dose at that time -Patient was counseled on the need for medication compliance and appropriate follow-up at mental health and also primary care for medical issues. Patient verbalized understanding and agreed. -Social work to help coordinate patients discharge today arrange for and conduct family meeting to ensure safety upon discharge and answer any questions/concerns. also to ensure safe home environment that guns/weapons are either removed from the home or locked away. Social work also to arrange for patients follow up appointments with [facility] for psychiatric care along with follow up with primary care provider. -Patient counseled on abstaining from recreational drugs and marijuana and alcohol. Was informed/educated on the adverse effects on their physical and mental health. Patient verbally agreed and understood. -Patient was instructed to return to the hospital or seek immediate medical care if their psychiatric or medical symptoms do worsen or reoccur. Abnormal Labs 05/18/24 05/20/24 05/20/24 13:52 08:44 08:44 Hct 48.4 H Glucose Hemoglobin A1c 6.2 H Urine Appearance Cloudy H Ur Squamous Epith Cells 5 H Calcium Oxalate Crystal Many H Urine Mucus Rare H 05/20/24 08:44 Hct Glucose 147 H Hemoglobin A1c Urine Appearance Ur Squamous Epith Cells Calcium Oxalate Crystal Urine Mucus Vital Signs Temp 98.4 F 05/31/24 09:00 Pulse 81 05/31/24 09:00 Resp 16 05/30/24 20:45 BP 115/65 05/31/24 09:00 Pulse Ox 98 05/31/24 09:00 FiO2 Intake & Output 05/30/24 05/31/24 05/31/24 18:59 06:59 18:59 Weight 81.9 kg Allergies Allergy/AdvReac Type Severity Reaction Status Date / Time citalopram hydrobromide Allergy Unknown Verified 05/18/24 14:31 [From Celexa] olanzapine [From Zyprexa] Allergy rash & Verified 05/18/24 14:31 itching Patient Condition at Discharge: Stable Plan - Discharge Summary New Discharge Prescriptions: New Aspirin 81 mg PO DAILY 30 Days #30 tab Nicotine 14Mg/24Hr Patch [Habitrol] 1 patch TRANSDERM DAILY patch Atorvastatin [Lipitor] 10 mg PO HS 30 Days #30 tab [place] Carbonate 300 mg PO DAILY 30 Days #30 cap Nicotine Gum (Polacrilex) [Nicorette] 2 mg BUCCAL Q4HR PRN pieceofgum PRN Reason: Nicotine Cravings traZODone HCL [Desyrel] 50 mg PO HS 30 Days #30 tab [place] Carbonate ER [Lithobid] 900 mg PO HS 30 Days #60 tab Paliperidone IM [Invega Sustenna] 234 mg IM QMONTHLY 30 Days #1 each Discontinued Rosuvastatin Calcium 5 mg PO HS Discharge Medication List Aspirin 81 mg PO DAILY 30 Days #30 tab 05/31/24 [Rx] Atorvastatin [Lipitor] 10 mg PO HS 30 Days #30 tab 05/31/24 [Rx] [place] Carbonate 300 mg PO DAILY 30 Days #30 cap 05/31/24 [Rx] [place] Carbonate ER [Lithobid] 900 mg PO HS 30 Days #60 tab 05/31/24 [Rx] Nicotine 14Mg/24Hr Patch [Habitrol] 1 patch TRANSDERM DAILY patch 05/31/24 [Rx] Nicotine Gum (Polacrilex) [Nicorette] 2 mg BUCCAL Q4HR PRN pieceofgum 05/31/24 [Rx] Paliperidone IM [Invega Sustenna] 234 mg IM QMONTHLY 30 Days #1 each 05/31/24 [Rx] traZODone HCL [Desyrel] 50 mg PO HS 30 Days #30 tab 05/31/24 [Rx] Follow up Appointment(s)/Referral(s): [facility] [Outside] - 06/02/24 3:00 pm (06/02/2024 3:00PM - 4:00P with CASSANDRA HERNANDEZ [facility] 06/13/2024 1:30PM - 2:30PM [facility]) Oziel Jacobsen DO [Primary Care Provider] - 1-2 days Patient Instructions/Handouts: How to Stop Smoking (DC), Bipolar Disorder (DC), Psychotic Disorder (DC) Activity/Diet/Wound Care/Special Instructions: [facility] Discharge Info Avoid the use of street drugs and alcohol. Take all medications as prescribed. When you are in need of refills on your medications, please contact your outpatient medical provider and/or outpatient psychiatrist. Please go to your scheduled outpatient appointments for aftercare treatment. If symptoms return or become worse, call the crisis line at or and/or visit the nearest emergency room for assistance. National Suicide and Crisis Lifeline - call or text 418 Discharge Disposition: HOME SELF-CARE
== END 2024-05-31 11:32 | disposition home or self-care (01) | DRG 885 ==
LOC: EC 11:49 → 3MHU 15:04
PROVIDERS: ADMIT Psychiatry & Neurology Psychiatry; ATTEND Psychiatry & Neurology Psychiatry
DX: F25.0 Schizoaffective disorder, bipolar type (principal); R45.851 Suicidal ideations; J44.9 Chronic obstructive pulmonary disease, unspecified; E78.5 Hyperlipidemia, unspecified; F17.210 Nicotine dependence, cigarettes, uncomplicated; F41.9 Anxiety disorder, unspecified; I25.10 Atherosclerotic heart disease of native coronary artery without angina pectoris; R11.10 Vomiting, unspecified; I25.2 Old myocardial infarction; M16.12 Unilateral primary osteoarthritis, left hip; Z79.1 Long term (current) use of non-steroidal anti-inflammatories (NSAID); Z79.82 Long term (current) use of aspirin; Z91.199 Patient's noncompliance with other medical treatment and regimen due to unspecified reason; Z11.52 Encounter for screening for COVID-19; Z71.3 Dietary counseling and surveillance; Z88.8 Allergy status to other drugs, medicaments and biological substances; G47.9 Sleep disorder, unspecified
CPT/HCPCS: 70450; 73502; 80053; 80178; 80306; 81001; 82075; 83036; 84443; 85025; 87635; 99285

== ENCOUNTER → 2024-09-22 | Outpatient (CLI) | payer MEDICARE, OTHER | END | disposition home or self-care (01) | LOC: RADNMMAIN 09:56 → EEVIPCON 09:56 | PROVIDERS: ATTEND Family Medicine | DX: Z53.9 Procedure and treatment not carried out, unspecified reason (principal) ==